=== PATIENT | female | born 1950 ===

== ENCOUNTER 2024-01-10 09:22 | Inpatient (IN) | payer MEDICARE, OTHER ==
--- NOTE | 2024-01-10 09:57 | ED ---
General Adult HPI - General Chief complaint: Shortness of Breath Stated complaint: SOB Time Seen by Provider: 01/10/24 09:30 Source: patient, RN notes reviewed, old records reviewed Mode of arrival: wheelchair Limitations: no limitations - History of Present Illness Initial comments: This is a 73-year-old female with a past medical history for COPD, rheumatoid arthritis, osteoporosis and smoking which she continues today. Patient comes in for difficulty breathing states is ongoing for 3 weeks. Patient states she also has some chest and back pain that is exacerbated by any kind of deep breathing or movement. Patient states last night she bent over and felt pain in her left side of her rib cage when she was trying to roller picker a pillow. Patient states her back pain also is increased with deep breathing or twisting. Patient denies any recent fevers or chills however she did have a cough and was given Zithromax and a decongestant and the cough improved and she no longer is coughing. Patient states she was recently switched from Z-Chase to Levaquin. Patient denies any swelling in the legs or calf tenderness. Patient [place] any abdominal pain patient has nausea vomiting diarrhea - Related Data Home Medications Medication Instructions Recorded Confirmed Albuterol Sulfate [Albuterol 1 - 2 puff PO RT-Q4H PRN 01/10/24 01/10/24 Sulfate Hfa] Benzonatate [Tessalon Perles] 100 mg PO TID PRN 01/10/24 01/10/24 Celecoxib [CeleBREX] 200 mg PO BID PRN 01/10/24 01/10/24 HYDROcodone/APAP 10-325MG [[place] 1 tab PO Q8H PRN 01/10/24 01/10/24 10-325] Levocetirizine Dihydrochloride 5 mg PO HS PRN 01/10/24 01/10/24 [Xyzal] Levofloxacin [Levaquin] 500 mg PO HS 01/10/24 01/10/24 lisinopriL [Zestril] 10 mg PO DAILY 01/10/24 01/10/24 predniSONE 10 mg PO DAILY 01/10/24 01/10/24 Allergies Allergy/AdvReac Type Severity Reaction Status Date / Time No Known Allergies Allergy Verified 01/10/24 12:33 Review of Systems ROS Statement: Those systems with pertinent positive or pertinent negative responses have been documented in the HPI. ROS Other: All systems not noted in ROS Statement are negative. Past Medical History Past Medical History: Heart Failure, COPD, Hypertension History of Any Multi-Drug Resistant Organisms: None Reported Past Surgical History: No Surgical Hx Reported Past Psychological History: No Psychological Hx Reported Smoking Status: Current every day smoker Past Alcohol Use History: None Reported Past Drug Use History: None Reported General Exam - General Exam Comments Initial Comments: GENERAL: Patient is well-developed and well-nourished. Patient is nontoxic and well- hydrated and is in mild distress. ENT: Neck is soft and supple. No significant lymphadenopathy is noted. Oropharynx is clear. Moist mucous membranes. Neck has full range of motion without eliciting any pain. EYES: The sclera were anicteric and conjunctiva were pink and moist. Extraocular movements were intact and pupils were equal round and reactive to light. Eyelids were unremarkable. PULMONARY: Unlabored respirations. Good breath sounds bilaterally. No audible rales rhonchi or wheezing was noted. CARDIOVASCULAR: Patient is tachycardic at about 120 beats a minute ABDOMEN: Soft and nontender with normal bowel sounds. SKIN: Skin is clear with no lesions or rashes and otherwise unremarkable. NEUROLOGIC: Patient is alert and oriented x3. Cranial nerves II through XII are grossly intact. Motor and sensory are also intact. Normal speech, volume and content. Symmetrical smile. MUSCULOSKELETAL: Normal extremities with adequate strength and full range of motion. LYMPHATICS: No significant lymphadenopathy is noted PSYCHIATRIC: Normal psychiatric evaluation. Limitations: no limitations Course Vital Signs 01/10/24 01/10/24 01/10/24 09:26 09:49 10:32 Temperature 98.9 F Pulse Rate 110 H 105 H Respiratory 22 16 18 Rate Blood Pressure 125/76 O2 Sat by Pulse 94 L 95 Oximetry 01/10/24 01/10/24 01/10/24 11:40 12:00 13:00 Temperature 98.3 F Pulse Rate 108 H 110 H 110 H Respiratory 18 18 19 Rate Blood Pressure 116/70 132/90 135/91 O2 Sat by Pulse 94 L 94 L Oximetry Medical Decision Making - Medical Decision Making EKG is interpreted by myself read EKG shows a sinus tachycardia at 109 bpm [place] interval is 132 QRS is 92 QT interval 325 QTc is 389. Patient's EKG shows no ST segment elevation Was pt. sent in by a medical professional or institution ([facility], [employer], urgent care, hospital, or [facility]...) When possible be specific @ -No Did you speak to anyone other than the patient for history (EMS, parent, family, police, friend...)? What history was obtained from this source @ -No Did you review nursing and triage notes (agree or disagree)? Why? @ -I reviewed and agree with nursing and triage notes Were old charts reviewed (outside hosp., previous admission, EMS record, old EKG, old radiological studies, urgent care reports/EKG's, [facility] records)? Report findings @ -I compared this x-ray with the previous x-ray showed no changes. Differential Diagnosis (chest pain, altered mental status, abdominal pain women, abdominal pain men, vaginal bleeding, weakness, fever, dyspnea, syncope, head ache, dizziness, GI bleed, back pain, seizure, CVA, palpatations, mental health, musculoskeletal)? @ -Differential Dyspnea: Coronary syndrome, arrhythmia, tamponade, asthma, COPD, pulmonary embolism, pneumonia, pneumothorax, pulmonary effusion, anaphylaxis, diabetic ketoacidosis, flailed chest, pulmonary contusion, diaphragmatic rupture, anemia, neuromuscular, this is not meant to be an all-inclusive list. EKG interpreted by me (3pts min.). @ -As above X-rays interpreted by me (1pt min.). @ -Chest x-ray showed no acute normality CT interpreted by me (1pt min.). @ -None done U/S interpreted by me (1pt. min.). @ -None done What testing was considered but not performed or refused? (CT, X-rays, U/S, labs)? Why? @ -None What meds were considered but not given or refused? Why? @ -None Did you discuss the management of the patient with other professionals (professionals i.e. [facility], [employer], lab, RT, psych nurse, social worker assistant, criminal defense lawyer, teacher, chief lending officer, manager rn case)? Give summary @ -I spoke with Dr. Shane and he agreed to admit the patient Was smoking cessation discussed for >3mins.? @ -No Was critical care preformed (if so, how long)? @ -No Were there social determinants of health that impacted care today? How? (Homelessness, low income, unemployed, alcoholism, drug addiction, transportation, low edu. Level, literacy, decrease access to med. care, group home, rehab)? @ -No Was there de-escalation of care discussed even if they declined (Discuss DNR or withdrawal of care, Hospice)? DNR status @ -No What co-morbidities impacted this encounter? (DM, HTN, Smoking, COPD, CAD, Cancer, CVA, ARF, Chemo, Hep., AIDS, mental health diagnosis, sleep apnea, morbid obesity)? @ -None Was patient admitted / discharged? Hospital course, mention meds given and route, prescriptions, significant lab abnormalities, going to OR and other pertinent info. @ -Patient received breathing treatment steroid while in the emergency department as well as Rocephin. Patient will be admitted to Dr. Shane Undiagnosed new problem with uncertain prognosis? @ -No Drug Therapy requiring intensive monitoring for toxicity (Heparin, Nitro, Insulin, Cardizem)? @ -No Were any procedures done? @ -No Diagnosis/symptom? @ -COPD exacerbation Acute, or Chronic, or Acute on Chronic? @ -Acute Uncomplicated (without systemic symptoms) or Complicated (systemic symptoms)? @ -Complicated Side effects of treatment? @ -No Exacerbation, Progression, or Severe Exacerbation? @ -No Poses a threat to life or bodily function? How? (Chest pain, [place], [place], pneumonia, PE, COPD, DKA, ARF, appy, cholecystitis, CVA, Diverticulitis, Homicidal, Suicidal, threat to staff... and all critical care pts) @ -Yes this could lead to hypoxia and endorgan dysfunction - Lab Data Result diagrams: 01/10/24 09:56 01/10/24 09:56 Lab Results 01/10/24 01/10/24 01/10/24 Range/Units 09:56 09:56 09:56 WBC 15.2 H (3.8-10.6) k/uL RBC 5.23 (3.80-5.40) m/uL Hgb 16.2 H (11.4-16.0) gm/dL Hct 50.3 H (34.0-46.0) % MCV 96.2 (80.0-100.0) fL MCH 31.0 (25.0-35.0) pg MCHC 32.2 (31.0-37.0) g/dL RDW 14.3 (11.5-15.5) % Plt Count 417 (150-450) k/uL MPV 7.3 Neutrophils % 90 % Lymphocytes % 5 % Monocytes % 4 % Eosinophils % 1 % Basophils % 0 % Neutrophils # 13.6 H (1.3-7.7) k/uL Lymphocytes # 0.7 L (1.0-4.8) k/uL Monocytes # 0.5 (0-1.0) k/uL Eosinophils # 0.2 (0-0.7) k/uL Basophils # 0.1 (0-0.2) k/uL PT 10.1 (10.0-12.5) sec INR 0.9 (<1.2) APTT 28.1 (22.0-30.0) sec D-Dimer 0.96 H (<0.60) mg/L FEU Sodium 126 L (137-145) mmol/L Potassium 4.4 (3.5-5.1) mmol/L Chloride 98 (98-107) mmol/L Carbon Dioxide 15 L (22-30) mmol/L Anion Gap 13 mmol/L BUN 16 (7-17) mg/dL Creatinine 0.54 (0.52-1.04) mg/dL Est GFR (CKD-EPI)AfAm >90 (>60 ml/min/1.73 sqM) Est GFR (CKD-EPI)NonAf >90 (>60 ml/min/1.73 sqM) Glucose 105 H (74-99) mg/dL Plasma Lactic Acid Abner (0.7-2.0) mmol/L Calcium 9.4 (8.4-10.2) mg/dL Magnesium 1.8 (1.6-2.3) mg/dL Total Bilirubin 1.1 (0.2-1.3) mg/dL AST 26 (14-36) U/L ALT 12 (4-34) U/L Alkaline Phosphatase 168 H (38-126) U/L Troponin I (0.000-0.034) ng/mL NT-Pro-B Natriuret Pep 379 pg/mL Total Protein 6.3 (6.3-8.2) g/dL Albumin 3.7 (3.5-5.0) g/dL Influenza Type A (PCR) (Not Detectd) Influenza Type B (PCR) (Not Detectd) RSV (PCR) (Not Detectd) SARS-CoV-2 (PCR) (Not Detectd) 01/10/24 01/10/24 01/10/24 Range/Units 09:56 09:56 09:56 WBC (3.8-10.6) k/uL RBC (3.80-5.40) m/uL Hgb (11.4-16.0) gm/dL Hct (34.0-46.0) % MCV (80.0-100.0) fL MCH (25.0-35.0) pg MCHC (31.0-37.0) g/dL RDW (11.5-15.5) % Plt Count (150-450) k/uL MPV Neutrophils % % Lymphocytes % % Monocytes % % Eosinophils % % Basophils % % Neutrophils # (1.3-7.7) k/uL Lymphocytes # (1.0-4.8) k/uL Monocytes # (0-1.0) k/uL Eosinophils # (0-0.7) k/uL Basophils # (0-0.2) k/uL PT (10.0-12.5) sec INR (<1.2) APTT (22.0-30.0) sec D-Dimer (<0.60) mg/L FEU Sodium (137-145) mmol/L Potassium (3.5-5.1) mmol/L Chloride (98-107) mmol/L Carbon Dioxide (22-30) mmol/L Anion Gap mmol/L BUN (7-17) mg/dL Creatinine (0.52-1.04) mg/dL Est GFR (CKD-EPI)AfAm (>60 ml/min/1.73 sqM) Est GFR (CKD-EPI)NonAf (>60 ml/min/1.73 sqM) Glucose (74-99) mg/dL Plasma Lactic Acid Abner 1.4 (0.7-2.0) mmol/L Calcium (8.4-10.2) mg/dL Magnesium (1.6-2.3) mg/dL Total Bilirubin (0.2-1.3) mg/dL AST (14-36) U/L ALT (4-34) U/L Alkaline Phosphatase (38-126) U/L Troponin I <0.012 (0.000-0.034) ng/mL NT-Pro-B Natriuret Pep pg/mL Total Protein (6.3-8.2) g/dL Albumin (3.5-5.0) g/dL Influenza Type A (PCR) Not Detected (Not Detectd) Influenza Type B (PCR) Not Detected (Not Detectd) RSV (PCR) Not Detected (Not Detectd) SARS-CoV-2 (PCR) Not Detected (Not Detectd) 01/10/24 Range/Units 11:01 WBC (3.8-10.6) k/uL RBC (3.80-5.40) m/uL Hgb (11.4-16.0) gm/dL Hct (34.0-46.0) % MCV (80.0-100.0) fL MCH (25.0-35.0) pg MCHC (31.0-37.0) g/dL RDW (11.5-15.5) % Plt Count (150-450) k/uL MPV Neutrophils % % Lymphocytes % % Monocytes % % Eosinophils % % Basophils % % Neutrophils # (1.3-7.7) k/uL Lymphocytes # (1.0-4.8) k/uL Monocytes # (0-1.0) k/uL Eosinophils # (0-0.7) k/uL Basophils # (0-0.2) k/uL PT (10.0-12.5) sec INR (<1.2) APTT (22.0-30.0) sec D-Dimer (<0.60) mg/L FEU Sodium (137-145) mmol/L Potassium (3.5-5.1) mmol/L Chloride (98-107) mmol/L Carbon Dioxide (22-30) mmol/L Anion Gap mmol/L BUN (7-17) mg/dL Creatinine (0.52-1.04) mg/dL Est GFR (CKD-EPI)AfAm (>60 ml/min/1.73 sqM) Est GFR (CKD-EPI)NonAf (>60 ml/min/1.73 sqM) Glucose (74-99) mg/dL Plasma Lactic Acid Abner 1.4 (0.7-2.0) mmol/L Calcium (8.4-10.2) mg/dL Magnesium (1.6-2.3) mg/dL Total Bilirubin (0.2-1.3) mg/dL AST (14-36) U/L ALT (4-34) U/L Alkaline Phosphatase (38-126) U/L Troponin I (0.000-0.034) ng/mL NT-Pro-B Natriuret Pep pg/mL Total Protein (6.3-8.2) g/dL Albumin (3.5-5.0) g/dL Influenza Type A (PCR) (Not Detectd) Influenza Type B (PCR) (Not Detectd) RSV (PCR) (Not Detectd) SARS-CoV-2 (PCR) (Not Detectd) Disposition Clinical Impression: Acute exacerbation of chronic obstructive pulmonary disease Disposition: ADMITTED IP TO THIS HOSP Referrals: Popeye Dupont MD [Primary Care Provider] - 1-2 days Time of Disposition: 14:08
[2024-01-10 10:26] LABS: Basophils # (A) 0.1 k/uL (0-0.2); Basophils % (A) 0 %; Eosinophils # (A) 0.2 k/uL (0-0.7); Eosinophils % (A) 1 %; HCT 50.3 % (34.0-46.0); HGB 16.2 gm/dL (11.4-16.0); Lymphocytes # (A) 0.7 k/uL (1.0-4.8); Lymphocytes % (A) 5 %; MCHC 32.2 g/dL (31.0-37.0); MCV 96.2 fL (80.0-100.0); Mean Platelet Volume 7.3; Monocytes # (A) 0.5 k/uL (0-1.0); Monocytes % (A) 4 %; Neutrophils # (A) 13.6 k/uL (1.3-7.7); Neutrophils % (A) 90 %; Platelet Count 417 k/uL (150-450); RBC 5.23 m/uL (3.80-5.40); RDW 14.3 % (11.5-15.5); WBC 15.2 k/uL (3.8-10.6)
[2024-01-10 10:40] LABS: ALT 12 U/L (4-34); AST 26 U/L (14-36); African American GFR (CKD) >90 (>60 ml/min/1.73 sqM); Albumin 3.7 g/dL (3.5-5.0); Alkaline Phosphatase 168 U/L (38-126); Anion Gap 13 mmol/L; Blood Urea Nitrogen 16 mg/dL (7-17); Calcium 9.4 mg/dL (8.4-10.2); Carbon Dioxide 15 mmol/L (22-30); Chloride 98 mmol/L (98-107); Glucose 105 mg/dL (74-99); Magnesium 1.8 mg/dL (1.6-2.3); Non-African American GFR(CKD) >90 (>60 ml/min/1.73 sqM); Potassium 4.4 mmol/L (3.5-5.1); Sodium 126 mmol/L (137-145); Total Bilirubin 1.1 mg/dL (0.2-1.3); Total Protein 6.3 g/dL (6.3-8.2)
[2024-01-10 10:42] LABS: INR 0.9 (<1.2); Partial Thromboplastin Time 28.1 sec (22.0-30.0); Prothrombin Time 10.1 sec (10.0-12.5)
[2024-01-10 10:47] LABS: NT-Pro-B-Type Natriuretic Pept 379 pg/mL
--- NOTE | 2024-01-10 11:01 | XR ---
EXAMINATION TYPE: XR chest 2V DATE OF EXAM: 01/10/2024 COMPARISON: None INDICATION: Difficulty breathing TECHNIQUE: Frontal and lateral views of the chest are obtained. FINDINGS: The heart size is normal. The pulmonary vasculature is normal. There may be some fullness of the right hilar region. Pulmonary hypertension or underlying mass should be considered. Consider follow-up CT. No suspicious focal infiltrate. There is hyperinflation and flattening of diaphragms compatible with COPD. IMPRESSION: 1. No acute pulmonary process. 2. Possible fullness of the right hilum. Consider follow-up CT chest to evaluate for pulmonary hypert ension or underlying mass.
[2024-01-10] MEDS: cefTRIAXone IN SWFI 1,000 MG/10 ML SYRINGE IVP STA (11:37)
--- NOTE | 2024-01-10 12:16 | CT ---
CTA CHEST EXAMINATION TYPE: CT chest angio for PE DATE OF EXAM: 01/10/2024 INDICATION: elevated-dimer CT DLP: 159.5 mGycm, Automated exposure control for dose reduction was used. CONTRAST: Patient injected with 69 mL of Isovue 370. COMPARISON: None TECHNIQUE: CT of the chest is performed on a spiral scan at 2 mm thick sections. Study is performed with intravenous contrast timed for evaluation for pulmonary embolism. This will limit additional po rtions of the evaluation. 3-D MIP images reconstructed by the technologist are reviewed on the compu ter in the coronal and sagittal planes. FINDINGS: No persistent filling defects are evident to suggest an acute pulmonary embolism. No mediastinal or hilar adenopathy enlarged by CT criteria is evident. The ascending aorta diameter at the level of the main pulmonary artery is 3.5 cm. The main pulmonary artery diameter at the bifurcation is 3.1 cm. There may be a 1 cm density within the lingula. This could be related to atelectasis or scarring. Mas s is not excluded. Lung windows series 401 image 57. Moderate emphysematous changes are present bilat erally. Limited CT sections were through the upper abdomen. Upper abdomen appears unremarkable. IMPRESSION: 1. There may be a 1 cm density versus scarring or atelectasis in the left anterior midlung. Follow-up PET/CT can be performed. 2. Moderate emphysematous changes. 3. No acute pulmonary embolism
[2024-01-10] MEDS ORDERED: BENZONATATE 100 MG CAP PO PRN (13:48)
[2024-01-10] MEDS ORDERED: NALOXONE 0.4 MG/ML 1 ML VIAL IVP PRN (14:10)
[2024-01-10] MEDS ORDERED: IPRATROPIUM-ALBUTEROL 3 ML NEB INHALATION PRN (14:10)
[2024-01-10] MEDS: IPRATROPIUM-ALBUTEROL 3 ML NEB INHALATION SCH (15:36)
[2024-01-10] MEDS: IPRATROPIUM-ALBUTEROL 3 ML NEB INHALATION STA (15:43)
[2024-01-10] MEDS: SODIUM CHLORIDE 0.9% 1,000 ML IV STA (15:49)
[2024-01-10] MEDS: KETOROLAC 15 MG/ML 1 ML VIAL IVP STA (15:50)
[2024-01-10] MEDS: MAGNESIUM SULFATE-D5W PMX 1 GM in DEXTROSE/WATER 1 100ML.BAG IVPB ONE (15:50)
[2024-01-10] MEDS: PANTOPRAZOLE 40 MG TABLET PO SCH (15:51)
[2024-01-10] MEDS: methylPREDNISolone SOD SUCCI 125 MG/2 ML VIAL IV SCH (17:00)
[2024-01-10] MEDS ORDERED: ALBUTEROL NEBULIZED 2.5 MG/3 ML INHALATION PRN (17:46)
[2024-01-10] MEDS ORDERED: MELOXICAM 7.5 MG TAB PO PRN (17:47)
[2024-01-10] MEDS: AMOXIC-POT CLAV 875-125MG 1 EACH TAB PO SCH (20:58)
[2024-01-10] MEDS: HYDROcodone/APAP 10-325MG 1 EACH TAB PO PRN (20:58)
[2024-01-10] MEDS: HEPARIN SODIUM,PORCINE 5,000 UNIT/ML 1 ML VIAL SQ SCH (20:58)
--- NOTE | 2024-01-10 23:00 | P.HPIM ---
History of Present Illness H&P Date: 01/10/24 Chief Complaint: Shortness of breath Patient is a 73-year-old female with known history of COPD, hypertension rheumatoid arthritis with arthritic changes and CHF EF not known and prior history of thoracentesis and currently everyday smoker presents to ER with complaints of shortness of breath not improving for the past 3 weeks. Patient was on 2 courses of oral antibiotics as an outpatient. Patient is also complaining of left upper quadrant pain since last night when she sat on the side of the bed and was trying to flower buncher or picker a pillow. Denies any fall otherwise. Patient is also complaining of back pain. Denies any fevers or chills. Patient did complete antibiotics with azithromycin and also levofloxacin. Patient is on prednisone 10 mg daily at home. Currently denies any cough or sputum production. No leg swelling. Denies any weight gain. No nausea vomiting abdominal pain or diarrhea. Chest x-ray showed no acute pulmonary process. Possible fullness of the right hilum. Consider follow-up CT chest to evaluate for pulmonary hypertension or underlying mass. EKG showed sinus tachycardia with heart rate 119 CTA chest was done due to elevated D-dimer level. Showed there may be 1 cm density versus scarring or atelectasis in the left anterior midlung follow-up PET CT can be performed. Moderate emphysematous changes. No acute pulmonary embolism. Laboratory data showed WBC 15.2 hemoglobin 16.2 platelets 417 D-dimer 0.96, sodium 126 potassium 4.4 chloride 98 bicarb is 15 BUN 16 and creatinine 0.54 and blood sugar 105 lactic acid 1.4 magnesium 1.8 AST 26 ALT 12 alk phos 168 and troponin 0.012 and proBNP 379 and albumin 3.7 Influenza AB RSV and COVID-19 PCR not detected. Review of Systems Constitutional: Patient denies any fever or chills . Patient does have generalized weakness. No recent weight loss. Abdomen: Patient denied nausea vomiting and diarrhea and abdominal pain. Cardiovascular: Patient denies any chest pain. Patient does have short of breath no palpitations. No leg swelling Respiratory: patient denied any cough is from production. Positive for shortness of breath Neurologic: Patient denied any numbness or tingling headache. Musculoskeletal: Patient denies any complaints of joint swelling or deformity. Skin: Negative Psychiatric: Negative Endocrine: No heat or cold intolerance. No recent weight gain. Genitourinary: No dysuria or hematuria. All other 14 point ROS negative except the above Past Medical History Past Medical History: Heart Failure, COPD, Hypertension History of Any Multi-Drug Resistant Organisms: None Reported Past Surgical History: No Surgical Hx Reported Past Psychological History: No Psychological Hx Reported Smoking Status: Current every day smoker Past Alcohol Use History: None Reported Past Drug Use History: None Reported Medications and Allergies Home Medications Medication Instructions Recorded Confirmed Type Albuterol Sulfate [Albuterol 1 - 2 puff PO RT-Q4H PRN 01/10/24 01/10/24 History Sulfate Hfa] Benzonatate [Tessalon Perles] 100 mg PO TID PRN 01/10/24 01/10/24 History Celecoxib [CeleBREX] 200 mg PO BID PRN 01/10/24 01/10/24 History HYDROcodone/APAP 10-325MG [[place] 1 tab PO Q8H PRN 01/10/24 01/10/24 History 10-325] Levocetirizine Dihydrochloride 5 mg PO HS PRN 01/10/24 01/10/24 History [Xyzal] Levofloxacin [Levaquin] 500 mg PO HS 01/10/24 01/10/24 History lisinopriL [Zestril] 10 mg PO DAILY 01/10/24 01/10/24 History predniSONE 10 mg PO DAILY 01/10/24 01/10/24 History Allergies Allergy/AdvReac Type Severity Reaction Status Date / Time No Known Allergies Allergy Verified 01/10/24 12:33 Physical Exam Vitals: Vital Signs Temp Pulse Resp BP Pulse Ox 01/10/24 13:00 110 H 19 135/91 94 L 01/10/24 12:00 110 H 18 132/90 94 L 01/10/24 11:40 98.3 F 108 H 18 116/70 01/10/24 10:32 105 H 18 95 01/10/24 09:49 16 01/10/24 09:26 98.9 F 110 H 22 125/76 94 L Intake and Output 01/09/24 01/10/24 01/10/24 22:59 06:59 14:59 Other: Weight 43.545 kg PHYSICAL EXAMINATION: Patient is lying in the bed , no acute distress, awake alert and oriented. Patient is cachectic and malnourished. HEENT: Normocephalic. Neck is supple. Pupils reactive. Nostrils clear. Oral cavity is moist. Neck reveals no JVD, carotid bruits, or thyromegaly. CHEST EXAMINATION: Trachea is central. Symmetrical expansion. Bilateral diminished sounds. Mild expiratory wheezing. Nonlabored breathing.. CARDIAC: Normal S1, S2 with no gallops. No murmurs ABDOMEN: Soft. Bowel sounds normal. No organomegaly. No abdominal bruits. Extremities: reveal no edema. No clubbing or cyanosis. Patient does have Neurologically awake, alert, oriented x 2-3 able to move all extremities. No gross focal deficits noted Skin: No rash or skin lesions. Psychiatric: Coperative. Nonsuicidal Musculoskeletal: No joint swelling or deformity. Rheumatoid arthritis changes Results CBC & Chem 7: 01/10/24 09:56 01/10/24 09:56 Labs: Abnormal Lab Results - Last 24 Hours (Table) 01/10/24 01/10/24 01/10/24 Range/Units 09:56 09:56 09:56 WBC 15.2 H (3.8-10.6) k/uL Hgb 16.2 H (11.4-16.0) gm/dL Hct 50.3 H (34.0-46.0) % Neutrophils # 13.6 H (1.3-7.7) k/uL Lymphocytes # 0.7 L (1.0-4.8) k/uL D-Dimer 0.96 H (<0.60) mg/L FEU Sodium 126 L (137-145) mmol/L Carbon Dioxide 15 L (22-30) mmol/L Glucose 105 H (74-99) mg/dL Alkaline Phosphatase 168 H (38-126) U/L Thrombosis Risk Factor Assmnt - DVT/VTE Prophylaxis DVT/VTE Prophylaxis: Pharmacologic Prophylaxis ordered Assessment and Plan Assessment: Shortness of breath secondary to COPD exacerbation failed outpatient treatment Left anterior midlung 1 cm density scarring or atelectasis Prior history of left sided thoracentesis Hypovolemic hyponatremia with sodium 126 on admission Leukocytosis Hypertension Current everyday smoker Severe protein calorie malnutrition Chronic back pain and Rheumatoid arthritis with severe arthritic changes GI and DVT prophylaxis with PPI and heparin subcu Plan: Patient will be continued on IV hydration with normal saline. Current with IV Solu-Medrol, DuoNebs and was given a dose of ceftriaxone in the ER. UA was ordered Continue with home medications, blood pressure medication on hold due to low blood pressure. Chronic pain managed with [place] 10 as per home regimen. Pulmonary consult for evaluation. Patient was seen by Dr. Donohue previously PT OT consult Continue to follow closely. Prognosis is guarded. Time with Patient: Greater than 30
[2024-01-11 00:16] LABS: Appearance,Urine Clear (Clear); Bilirubin,Urine Negative (Negative); Blood,Urine Negative (Negative); Color,Urine Colorless; Glucose,Urine (UA) Negative (Negative); Ketones,Urine 1+ (Negative); Leukocyte Esterase,Urine Negative (Negative); Nitrite,Urine Negative (Negative); PH, Urine 6.5 (5.0-8.0); Protein,Urine Negative (Negative); Specific Gravity,Urine 1.008 (1.001-1.035); Urobilinogen,Urine <2.0 mg/dL (<2.0)
[2024-01-11] MEDS ORDERED: lisinopriL 10 MG TAB PO SCH (09:00)
[2024-01-11 09:28] LABS: Basophils # (A) 0.01 X 10*3/uL (0.00-0.10); Basophils % (A) 0.1 %; Eosinophils # (A) 0.03 X 10*3/uL (0.04-0.35); Eosinophils % (A) 0.2 %; HCT 42.6 % (37.2-46.3); HGB 14.2 g/dL (12.0-15.0); Lymphocytes # (A) 0.22 X 10*3/uL (0.90-5.00); Lymphocytes % (A) 1.5 %; MCH 30.6 pg (27.0-32.0); MCHC 33.3 g/dL (32.0-37.0); MCV 91.8 FL (80.0-97.0); Mean Platelet Volume 9.8 FL (9.5-12.2); Monocytes # (A) 0.15 X 10*3/uL (0.20-1.00); NRBC Per 100 WBC 0 X 10*3/uL (0.00-0.01); Neutrophils # (A) 14.45 X 10*3/uL (1.80-7.70); Neutrophils % (A) 96.8 %; Platelet Count 391 X 10*3/uL (140-440); RBC 4.64 X 10*6/uL (4.10-5.20); RDW 15.4 % (11.5-14.5); WBC 14.92 X 10*3/uL (4.50-10.00)
[2024-01-11 09:50] LABS: BUN/Creat Ratio 26.25 Ratio (12.00-20.00); Blood Urea Nitrogen 10.5 mg/dL (9.0-27.0); Calcium 9.1 mg/dL (8.7-10.3); Carbon Dioxide 17.8 mmol/L (21.6-31.8); Chloride 100 mmol/L (96-109); Glucose 213 mg/dL (70-110); Potassium 4.5 mmol/L (3.5-5.5); Sodium 132 mmol/L (135-145)
--- NOTE | 2024-01-11 14:01 | CA ---
Transthoracic Echo Report Name: Susana Chen Age: 73 Gender: F : 1950 Exam Date: 01/11/2024 12:42 Exam Location: [facility] Ht (in): 60 Wt (lb): 96 Ordering Physician: Leonidas Laureano MD Attending/Referring Phys: [employer] General Supervisor Any Awan RDCS Procedure CPT: Indications: Chest Pain Cardiac Hx: Technical Quality: Fair Contrast 1: Total Dose (mL): Contrast 2: Total Dose (mL): MEASUREMENTS (Male / Female) Normal Values 2D ECHO LV Diastolic Diameter PLAX 4.8 cm 4.2 - 5.9 / 3.9 - 5.3 cm LV Systolic Diameter PLAX 3.5 cm IVS Diastolic Thickness 1.2 cm 0.6 - 1.0 / 0.6 - 0.9 cm LVPW Diastolic Thickness 1.3 cm 0.6 - 1.0 / 0.6 - 0.9 cm LV Relative Wall Thickness 0.5 RV Internal Dim ED PLAX 3.4 cm LVOT Diameter 1.7 cm LA Volume 39.2 cm??? 18 - 58 / 22 - 52 cm??? LA Volume Index 28.9 cm???/m??? 16 - 28 cm???/m??? M-MODE Aortic Root Diameter MM 3.7 cm LA Systolic Diameter MM 4.6 cm LA Ao Ratio MM 1.3 AV Cusp Separation MM 1.4 cm DOPPLER AV Peak Velocity 273.2 cm/s AV Peak Gradient 29.9 mmHg AV Mean Velocity 209.0 cm/s AV Mean Gradient 18.7 mmHg AV Velocity Time Integral 45.3 cm LVOT Peak Velocity 111.5 cm/s LVOT Peak Gradient 5.0 mmHg LVOT Velocity Time Integral 17.5 cm LVOT Stroke Volume 41.2 cm??? LVOT Stroke Volume Index 30.1 ml/m??? LVOT Cardiac Index 3588.6 cm???/min???m??? AV Area Cont Eq vti 0.9 cm??? AV Area Cont Eq pk 1.0 cm??? MV Area PHT 5.3 cm??? Mitral E Point Velocity 76.6 cm/s Mitral A Point Velocity 49.8 cm/s Mitral E to A Ratio 1.5 MV Deceleration Time 144.1 ms MV E' Velocity 7.4 cm/s Mitral E to MV E' Ratio 10.4 FINDINGS Left Ventricle Mildly increased left ventricular wall thickness. Left ventricular cavity size normal. Normal left ventricular systolic function with no obvious regional wall motion abnormalities. Left ventricular ejection fraction is estimated at 55 %. Right Ventricle Normal right ventricular size and function. Right Atrium Normal right atrial size. Normal right atrial size. Left Atrium Normal left atrial size. Mitral Valve Structurally normal mitral valve. Mild mitral annular calcification. Mild mitral regurgitation. Aortic Valve Mild aortic stenosis with a peak gradient of 30 mmHg and a mean gradient of 19 mmHg. No aortic regurgitation. Tricuspid Valve Structurally normal tricuspid valve. Mild tricuspid regurgitation. Pulmonic Valve Structurally normal pulmonic valve. Pericardium No pericardial effusion. Aorta Normal size aortic root and proximal ascending aorta. CONCLUSIONS Preserved LV systolic function Asymmetric septal hypertrophy Mild aortic stenosis Previewed by: Dr. Mike Donnelly MD (Electronically Signed) Final Date: 11 January 2024 14:00
[2024-01-11] MEDS ORDERED: DEXTROSE 50% SYRINGE 50 ML IVP PRN ×2 (14:37)
[2024-01-11 16:22] LABS: Glucose,Whole Blood 253 mg/dL (70-110)
--- NOTE | 2024-01-11 16:22 | P.CNPUL ---
History of Present Illness Consult date: 01/11/24 Reason for consult: dyspnea, COPD History of present illness: On 01/11/2024, the patient is being seen for cardiac consultation as the patient came into the hospital yesterday because of worsening shortness of breath. The patient is known to have COPD and the patient smokes around half pack of cigarettes a day. The patient is having increased dyspnea cough chest congestion chest tightness and wheeze along with some nonspecific chest pain not related to exertion without any radiation. No fever or chills. The viral screen has been negative including COVID-19 influenza and flu. Chest x-ray was showing COPD and a CAT scan of the chest was also done and showed no evidence of any pulmonary embolism that was consistent with COPD and presence of centrilobular emphysema moderate disease. A density is also seen in the left anterior midlung area which is probably an area of scar/atelectasis. The patient's white cell count was at 15.2 with a hemoglobin of 16.2 and a platelet count of 417. Sodium levels at 132 up from 126 at time of admission and the patient has a serum bicarb of 17 with a BUN of 10 and a creatinine of 0.4. Troponins were negative. proBNP level is nonelevated. UA has been also negative. She is on [facility]. Does not utilize any form of maintenance respiratory medication outpatient basis. She is currently on 2 L of oxygen by nasal cannula. She is on IV Solu-Medrol. She also has rheumatoid arthritis and several years back she had developed a left-sided pleural effusion which was attributed to rheumatoid arthritis. No recurrence since. She is maintained on 10 mg of prednisone on outpatient basis. Echocardiogram was also obtained today and the patient was found to have a normal left ventricular ejection fraction, asymmetric septal hypertrophy with mild aortic stenosis. Review of Systems Constitutional: Reports fatigue, Reports weakness, Reports weight loss Eyes: denies as per HPI, denies blurred vision, denies bulging eye, denies decreased vision, denies diplopia, denies discharge, denies dry eye, denies irritation, denies itching, denies pain, denies photophobia, denies loss of peripheral vision, denies loss of vision, denies tunnel vision/blind spots Ears: deny: decreased hearing, ear discharge, earache, tinnitus Ears, nose, mouth and throat: Reports as per HPI Breasts: absent: as per HPI, change in shape, gynecomastia, masses, nipple di scharge, pain, skin changes, swelling Cardiovascular: Reports decreased exercise tolerance, Reports dyspnea on exertion Respiratory: Reports cough, Reports dyspnea Genitourinary: Reports as per HPI Menstruation: Reports as per HPI Musculoskeletal: Reports as per HPI, Reports hot joints, Reports limitation of motion Musculoskeletal: absent: ankle pain, ankle stiffness, ankle swelling Integumentary: Reports as per HPI Neurological: Reports as per HPI Hematologic/Lymphatic: Reports as per HPI Allergic/Immunologic: Reports as per HPI Past Medical History Past Medical History: Heart Failure, COPD, Hypertension, Rheumatoid Arthritis (RA) History of Any Multi-Drug Resistant Organisms: None Reported Past Surgical History: No Surgical Hx Reported Past Psychological History: No Psychological Hx Reported Smoking Status: Current every day smoker Past Alcohol Use History: None Reported Past Drug Use History: None Reported Medications and Allergies Home Medications Medication Instructions Recorded Confirmed Type Albuterol Sulfate [Albuterol 1 - 2 puff PO RT-Q4H PRN 01/10/24 01/10/24 History Sulfate Hfa] Benzonatate [Tessalon Perles] 100 mg PO TID PRN 01/10/24 01/10/24 History Celecoxib [CeleBREX] 200 mg PO BID PRN 01/10/24 01/10/24 History HYDROcodone/APAP 10-325MG [[place] 1 tab PO Q8H PRN 01/10/24 01/10/24 History 10-325] Levocetirizine Dihydrochloride 5 mg PO HS PRN 01/10/24 01/10/24 History [Xyzal] Levofloxacin [Levaquin] 500 mg PO HS 01/10/24 01/10/24 History lisinopriL [Zestril] 10 mg PO DAILY 01/10/24 01/10/24 History predniSONE 10 mg PO DAILY 01/10/24 01/10/24 History Allergies Allergy/AdvReac Type Severity Reaction Status Date / Time No Known Allergies Allergy Verified 01/10/24 12:33 Physical Exam Vitals: Vital Signs Temp Pulse Pulse Resp BP BP BP 01/11/24 11:03 107 H 16 01/11/24 09:35 100 01/11/24 09:24 104 H 01/11/24 08:00 107 H 16 01/11/24 07:25 98.4 F 107 H 16 135/75 01/11/24 01:04 98.3 F 93 18 105/65 01/10/24 22:06 90 01/10/24 21:56 92 01/10/24 19:30 98.8 F 99 19 94/57 01/10/24 16:00 105 H 18 104/81 01/10/24 15:50 78 18 01/10/24 15:43 77 18 01/10/24 14:00 106 H 18 109/66 01/10/24 13:00 110 H 19 135/91 01/10/24 12:00 110 H 18 132/90 01/10/24 11:40 98.3 F 108 H 18 116/70 Pulse Ox 01/11/24 11:03 01/11/24 09:35 01/11/24 09:24 01/11/24 08:00 01/11/24 07:25 92 L 01/11/24 01:04 92 L 01/10/24 22:06 01/10/24 21:56 01/10/24 19:30 92 L 01/10/24 16:00 95 01/10/24 15:50 01/10/24 15:43 01/10/24 14:00 94 L 01/10/24 13:00 94 L 01/10/24 12:00 94 L 01/10/24 11:40 Intake and Output 01/10/24 01/11/24 01/11/24 22:59 06:59 14:59 Other: Voiding Method Toilet Toilet # Voids 2 General appearance the patient is not having any respite distress at rest and the patient is currently on 2 L of oxygen by nasal cannula. Head exam was generally normal. There was no scleral icterus or corneal arcus. Mucous membranes were moist. Neck was supple and without jugular venous distension, thyromegaly, or carotid bruits. Carotids were easily palpable bilaterally. There was no adenopathy. Lung sounds are diminished bilaterally and the patient is having scattered expiratory wheezes throughout the lung wagner. Cardiac exam revealed the PMI to be normally situated and sized. The rhythm was regular and no extrasystoles were noted during several minutes of auscultation. The first and second heart sounds were normal and physiologic splitting of the second heart sound was noted. There were no murmurs, rubs, clicks, or gallops. Abdominal exam revealed normal bowel sounds. The abdomen was soft, non-tender, and without masses, organomegaly, or appreciable enlargement of the abdominal aorta. Extremities reveal deformities related to rheumatoid arthritis with ulnar deviation. No cyanosis or clubbing. No edema. Examination of the skin revealed no evidence of significant rashes, suspicious appearing nevi or other concerning lesions. Neurologically, the patient is awake and alert and the patient does not have any focal neurological deficit. Cranial nerves are essentially intact. Results - Laboratory Findings CBC and BMP: 01/11/24 06:46 01/11/24 06:46 PT/INR, D-dimer PT 10.1 sec (10.0-12.5) 01/10/24 09:56 INR 0.9 (<1.2) 01/10/24 09:56 D-Dimer 0.96 mg/L FEU (<0.60) H 01/10/24 09:56 Abnormal lab findings: Abnormal Labs 01/10/24 01/10/24 01/10/24 09:56 09:56 09:56 WBC 15.2 H Hgb 16.2 H Hct 50.3 H RDW Immature Gran # Neutrophils # 13.6 H Lymphocytes # 0.7 L Monocytes # Eosinophils # D-Dimer 0.96 H Sodium 126 L Carbon Dioxide 15 L Anion Gap Creatinine BUN/Creatinine Ratio Glucose 105 H Alkaline Phosphatase 168 H Urine Ketones 01/10/24 01/11/24 01/11/24 23:19 06:46 06:46 WBC 14.92 H Hgb Hct RDW 15.4 H Immature Gran # 0.06 H Neutrophils # 14.45 H Lymphocytes # 0.22 L Monocytes # 0.15 L Eosinophils # 0.03 L D-Dimer Sodium 132 L Carbon Dioxide 17.8 L Anion Gap 14.20 H Creatinine 0.4 L BUN/Creatinine Ratio 26.25 H Glucose 213 H Alkaline Phosphatase Urine Ketones 1+ H - Diagnostic Findings Chest x-ray: image reviewed CT scan - chest: image reviewed Assessment and Plan Plan: Acute exacerbation of COPD with secondary shortness of breath Chest pain, atypical, likely related to COPD exacerbation. Cardiac enzymes are negative. EKG is showing old Q waves over the anteroseptal leads. Echocardiogram is showing present of the function with asymmetric septal hypertrophy. Mild leukocytosis Hyponatremia, recovered with fluids History of rheumatoid arthritis History of pleural effusion attributed to RA, drained Chronic smoker Hypertension Plan [facility] Continue IV Solu-Medrol Oxygen titration to maintain saturation above 90% Will continue to follow. Smoking cessation counseling Empiric antibiotic coverage with Augmentin.
[2024-01-11] MEDS: INSULIN ASPART (NovoLOG) 100 UNIT/ML VIAL SQ SCH (17:03)
[2024-01-11 20:40] LABS: Glucose,Whole Blood 214 mg/dL (70-110)
[2024-01-12 05:39] LABS: Glucose,Whole Blood 151 mg/dL (70-110)
[2024-01-12 07:49] LABS: Basophils % (A) 0 %; Eosinophils # (A) 0.1 k/uL (0-0.7); Eosinophils % (A) 0 %; HCT 43.4 % (34.0-46.0); HGB 13.8 gm/dL (11.4-16.0); Lymphocytes # (A) 0.5 k/uL (1.0-4.8); Lymphocytes % (A) 2 %; MCHC 31.8 g/dL (31.0-37.0); MCV 97.7 fL (80.0-100.0); Mean Platelet Volume 8.1; Monocytes # (A) 0.5 k/uL (0-1.0); Monocytes % (A) 2 %; Neutrophils # (A) 21.3 k/uL (1.3-7.7); Neutrophils % (A) 95 %; Platelet Count 402 k/uL (150-450); RBC 4.44 m/uL (3.80-5.40); RDW 14.6 % (11.5-15.5); WBC 22.5 k/uL (3.8-10.6)
[2024-01-12 08:20] LABS: African American GFR (CKD) >90 (>60 ml/min/1.73 sqM); Anion Gap 7 mmol/L; Blood Urea Nitrogen 17 mg/dL (7-17); Calcium 9.4 mg/dL (8.4-10.2); Carbon Dioxide 18 mmol/L (22-30); Chloride 105 mmol/L (98-107); Glucose 150 mg/dL (74-99); Non-African American GFR(CKD) >90 (>60 ml/min/1.73 sqM); Potassium 4.6 mmol/L (3.5-5.1); Sodium 130 mmol/L (137-145)
[2024-01-12 11:58] LABS: Glucose,Whole Blood 178 mg/dL (70-110)
--- NOTE | 2024-01-12 15:33 | P.PN ---
Subjective Progress Note Date: 01/12/24 On 01/11/2024, the patient is being seen for cardiac consultation as the patient came into the hospital yesterday because of worsening shortness of breath. The patient is known to have COPD and the patient smokes around half pack of cigarettes a day. The patient is having increased dyspnea cough chest congestion chest tightness and wheeze along with some nonspecific chest pain not related to exertion without any radiation. No fever or chills. The viral screen has been negative including COVID-19 influenza and flu. Chest x-ray was showing COPD and a CAT scan of the chest was also done and showed no evidence of any pulmonary embolism that was consistent with COPD and presence of centrilobular emphysema moderate disease. A density is also seen in the left anterior midlung area which is probably an area of scar/atelectasis. The patient's white cell count was at 15.2 with a hemoglobin of 16.2 and a platelet count of 417. Sodium levels at 132 up from 126 at time of admission and the patient has a serum bicarb of 17 with a BUN of 10 and a creatinine of 0.4. Trop onins were negative. proBNP level is nonelevated. UA has been also negative. She is on [facility]. Does not utilize any form of maintenance respiratory medication outpatient basis. She is currently on 2 L of oxygen by nasal cannula. She is on IV Solu-Medrol. She also has rheumatoid arthritis and several years back she had developed a left-sided pleural effusion which was attributed to rheumatoid arthritis. No recurrence since. She is maintained on 10 mg of prednisone on outpatient basis. Echocardiogram was also obtained today and the patient was found to have a normal left ventricular ejection fraction, asymmetric septal hypertrophy with mild aortic stenosis. On today's evaluation of 01/12/2024. The patient continues to be short of breath. She remains on bronchodilators and steroids. Limited improvement since yesterday. On examination, she has improved air entry. She is on empiric antibiotic coverage with Augmentin. Labs from today shows a WBC count of 22 with a hemoglobin 13.8 and a platelet count of 402. BUN is at 17 with a creatinine of 0.44 and serum bicarb is up to 18 with a sodium level of 130. Echocardiogram was completed and the patient has a preserved LV function. No significant LV dysfunction. No significant valvular abnormalities. No evidence of any pericardial effusion. Mild aortic stenosis. Objective - Vital Signs Vital signs: Vital Signs Temp 98.7 F 01/12/24 07:49 Pulse 100 01/12/24 09:37 Resp 17 01/12/24 07:49 BP 139/82 01/12/24 07:49 Pulse Ox 94 L 01/12/24 09:29 FiO2 21 01/12/24 09:29 Intake & Output 01/11/24 01/12/24 01/12/24 18:59 06:59 18:59 Other: Voiding Method Toilet Toilet Toilet # Voids 2 2 - Exam General appearance the patient is not having any respite distress at rest and the patient is currently on 2 L of oxygen by nasal cannula. Head exam was generally normal. There was no scleral icterus or corneal arcus. Mucous membranes were moist. Neck was supple and without jugular venous distension, thyromegaly, or carotid bruits. Carotids were easily palpable bilaterally. There was no adenopathy. Lung sounds are diminished bilaterally and the patient is having scattered expiratory wheezes throughout the lung wagner. Cardiac exam revealed the PMI to be normally situated and sized. The rhythm was regular and no extrasystoles were noted during several minutes of auscultation. The first and second heart sounds were normal and physiologic splitting of the second heart sound was noted. There were no murmurs, rubs, clicks, or gallops. Abdominal exam revealed normal bowel sounds. The abdomen was soft, non-tender, and without masses, organomegaly, or appreciable enlargement of the abdominal aorta. Extremities reveal deformities related to rheumatoid arthritis with ulnar deviation. No cyanosis or clubbing. No edema. Examination of the skin revealed no evidence of significant rashes, suspicious appearing nevi or other concerning lesions. Neurologically, the patient is awake and alert and the patient does not have any focal neurological deficit. Cranial nerves are essentially intact. - Labs CBC & Chem 7: 01/12/24 07:17 01/12/24 07:17 Labs: Abnormal Lab Results - Last 24 Hours (Table) 01/11/24 01/11/24 01/12/24 Range/Units 16:20 20:38 05:36 WBC (3.8-10.6) k/uL Neutrophils # (1.3-7.7) k/uL Lymphocytes # (1.0-4.8) k/uL Sodium (137-145) mmol/L Carbon Dioxide (22-30) mmol/L Creatinine (0.52-1.04) mg/dL Glucose (74-99) mg/dL POC Glucose (mg/dL) 253 H 214 H 151 H (70-110) mg/dL 01/12/24 01/12/24 Range/Units 07:17 07:17 WBC 22.5 H (3.8-10.6) k/uL Neutrophils # 21.3 H (1.3-7.7) k/uL Lymphocytes # 0.5 L (1.0-4.8) k/uL Sodium 130 L (137-145) mmol/L Carbon Dioxide 18 L (22-30) mmol/L Creatinine 0.44 L (0.52-1.04) mg/dL Glucose 150 H (74-99) mg/dL POC Glucose (mg/dL) (70-110) mg/dL Microbiology - Last 24 Hours (Table) 01/10/24 11:03 Blood Culture - Preliminary Blood 01/10/24 10:53 Blood Culture - Preliminary Blood Assessment and Plan Plan: Acute exacerbation of COPD with secondary shortness of breath Chest pain, atypical, likely related to COPD exacerbation. Cardiac enzymes are negative. EKG is showing old Q waves over the anteroseptal leads. Echocardiogram is showing present of the function with asymmetric septal hypertrophy. Mild leukocytosis Hyponatremia, recovered with fluids History of rheumatoid arthritis History of pleural effusion attributed to RA, drained Chronic smoker Hypertension Plan Continue same treatment without any changes. Echocardiogram was within normal limits. Patient is currently on room air oxygen. Continue [facility] Continue IV Solu-Medrol Monitor the white cell count. Will continue to follow. Smoking cessation counseling Empiric antibiotic coverage with Augmentin.
[2024-01-12 16:25] LABS: Glucose,Whole Blood 205 mg/dL (70-110)
[2024-01-12 20:54] LABS: Glucose,Whole Blood 169 mg/dL (70-110)
[2024-01-13 05:31] LABS: Glucose,Whole Blood 152 mg/dL (70-110)
[2024-01-13 09:01] LABS: Blood Urea Nitrogen 17.7 mg/dL (9.0-27.0); Calcium 9.1 mg/dL (8.7-10.3); Carbon Dioxide 22.9 mmol/L (21.6-31.8); Chloride 98 mmol/L (96-109); Glucose 184 mg/dL (70-110); Potassium 4.7 mmol/L (3.5-5.5); Sodium 132 mmol/L (135-145)
[2024-01-13 09:10] LABS: Basophils # (A) 0.08 X 10*3/uL (0.00-0.10); Basophils % (A) 0.4 %; Eosinophils # (A) 1.03 X 10*3/uL (0.04-0.35); Eosinophils % (A) 5.4 %; HCT 39.3 % (37.2-46.3); Lymphocytes # (A) 0.48 X 10*3/uL (0.90-5.00); Lymphocytes % (A) 2.5 %; MCH 31.4 pg (27.0-32.0); MCHC 33.1 g/dL (32.0-37.0); MCV 94.9 FL (80.0-97.0); Mean Platelet Volume 10.7 FL (9.5-12.2); Monocytes % (A) 2.6 %; NRBC Per 100 WBC 0 X 10*3/uL (0.00-0.01); Neutrophils # (A) 16.84 X 10*3/uL (1.80-7.70); Neutrophils % (A) 87.5 %; Platelet Count 336 X 10*3/uL (140-440); RBC 4.14 X 10*6/uL (4.10-5.20); RBC Morphology Normal (Normal); RDW 15.8 % (11.5-14.5); WBC 19.24 X 10*3/uL (4.50-10.00)
--- NOTE | 2024-01-13 09:29 | P.PN ---
Subjective Progress Note Date: 01/11/24 Patient is a 73-year-old female with known history of COPD, hypertension rheumatoid arthritis with arthritic changes and CHF EF not known and prior history of thoracentesis and currently everyday smoker presents to ER with complaints of shortness of breath not improving for the past 3 weeks. Patient was on 2 courses of oral antibiotics as an outpatient. Patient is also complaining of left upper quadrant pain since last night when she sat on the side of the bed and was trying to citrus picker a pillow. Denies any fall otherwise. Patient is also complaining of back pain. Denies any fevers or chills. Patient did complete antibiotics with azithromycin and also levofloxacin. Patient is on prednisone 10 mg daily at home. Currently denies any cough or sputum production. No leg swelling. Denies any weight gain. No nausea vomiting abdominal pain or diarrhea. Chest x-ray showed no acute pulmonary process. Possible fullness of the right hilum. Consider follow-up CT chest to evaluate for pulmonary hypertension or underlying mass. EKG showed sinus tachycardia with heart rate 119 CTA chest was done due to elevated D-dimer level. Showed there may be 1 cm density versus scarring or atelectasis in the left anterior midlung follow-up PET CT can be performed. Moderate emphysematous changes. No acute pulmonary embolism. Laboratory data showed WBC 15.2 hemoglobin 16.2 platelets 417 D-dimer 0.96, sodium 126 potassium 4.4 chloride 98 bicarb is 15 BUN 16 and creatinine 0.54 and blood sugar 105 lactic acid 1.4 magnesium 1.8 AST 26 ALT 12 alk phos 168 and troponin 0.012 and proBNP 379 and albumin 3.7 Influenza AB RSV and COVID-19 PCR not detected. 01/11/2024 Patient is currently lying in the bed. Awake alert and oriented. No complaints of chest pain. Breathing status is better compared to yesterday. No complaints of nausea or vomiting. No headache or dizziness or lightheadedness. Patient is being continued on IV Solu-Medrol and DuoNebs and antibiotics in the form of Augmentin. Pulmonary is on board. Laboratory data showed WBC 14.9 hemoglobin 14.1 platelets 391 Sodium 132 potassium 4.5 chloride 100 bicarb is 17.8 BUN 10.5 and creatinine 0.4 and blood sugar 213 Current medications reviewed. Objective - Vital Signs Vital signs: Vital Signs Temp 98.4 F 01/11/24 07:25 Pulse 108 H 01/11/24 12:15 Resp 16 01/11/24 11:03 BP 135/75 01/11/24 07:25 Pulse Ox 92 L 01/11/24 07:25 FiO2 Intake & Output 01/10/24 01/11/24 01/11/24 18:59 06:59 18:59 Weight 43.545 kg Other: Voiding Method Toilet Toilet # Voids 2 - Exam PHYSICAL EXAMINATION: Patient is lying in the bed , no acute distress, awake alert and oriented. Patient is cachectic and malnourished. HEENT: Normocephalic. Neck is supple. Pupils reactive. Nostrils clear. Oral cavity is moist. Neck reveals no JVD, carotid bruits, or thyromegaly. CHEST EXAMINATION: Trachea is central. Symmetrical expansion. Improved bilateral air entry. No wheezing. Nonlabored breathing.. CARDIAC: Normal S1, S2 with no gallops. No murmurs ABDOMEN: Soft. Bowel sounds normal. No organomegaly. No abdominal bruits. Extremities: reveal no edema. No clubbing or cyanosis. Patient does have Neurologically awake, alert, oriented x 3 able to move all extremities. No gross focal deficits noted Skin: No rash or skin lesions. Psychiatric: Coperative. Nonsuicidal Musculoskeletal: No joint swelling or deformity. Rheumatoid arthritis changes - Labs CBC & Chem 7: 01/13/24 03:08 01/13/24 03:08 Labs: Abnormal Lab Results - Last 24 Hours (Table) 01/10/24 01/11/24 01/11/24 Range/Units 23:19 06:46 06:46 WBC 14.92 H (4.50-10.00) X 10*3/uL RDW 15.4 H (11.5-14.5) % Immature Gran # 0.06 H (0.00-0.04) X 10*3/uL Neutrophils # 14.45 H (1.80-7.70) X 10*3/uL Lymphocytes # 0.22 L (0.90-5.00) X 10*3/uL Monocytes # 0.15 L (0.20-1.00) X 10*3/uL Eosinophils # 0.03 L (0.04-0.35) X 10*3/uL Sodium 132 L (135-145) mmol/L Carbon Dioxide 17.8 L (21.6-31.8) mmol/L Anion Gap 14.20 H (4.00-12.00) mmol/L Creatinine 0.4 L (0.6-1.5) mg/dL BUN/Creatinine Ratio 26.25 H (12.00-20.00) Ratio Glucose 213 H (70-110) mg/dL Urine Ketones 1+ H (Negative) Assessment and Plan Assessment: Shortness of breath secondary to COPD exacerbation failed outpatient treatment Left anterior midlung 1 cm density scarring or atelectasis Prior history of left sided thoracentesis Hypovolemic hyponatremia with sodium 126 on admission Leukocytosis Hypertension Current everyday smoker Severe protein calorie malnutrition Chronic back pain and Rheumatoid arthritis with severe arthritic changes GI and DVT prophylaxis with PPI and heparin subcu Plan: Current with IV Solu-Medrol, DuoNebs and was given a dose of ceftriaxone in the ER. Continue with Augmentin currently. UA is negative for infection Patient will be started back on home blood pressure medications Chronic pain managed with [place] 10 as per home regimen. Insulin sliding scale for blood sugar control. Pulmonary is on board. Patient was seen by Dr. Donohue previously PT OT consult Continue to follow closely. Prognosis is guarded. Time with Patient: Greater than 30
--- NOTE | 2024-01-13 09:31 | P.PN ---
Subjective Progress Note Date: 01/12/24 Patient is a 73-year-old female with known history of COPD, hypertension rheumatoid arthritis with arthritic changes and CHF EF not known and prior history of thoracentesis and currently everyday smoker presents to ER with complaints of shortness of breath not improving for the past 3 weeks. Patient was on 2 courses of oral antibiotics as an outpatient. 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 Denies any fall otherwise. Patient is also complaining of back pain. Denies any fevers or chills. Patient did complete antibiotics with azithromycin and also levofloxacin. Patient is on prednisone 10 mg daily at home. Currently denies any cough or sputum production. No leg swelling. Denies any weight gain. No nausea vomiting abdominal pain or diarrhea. Chest x-ray showed no acute pulmonary process. Possible fullness of the right hilum. Consider follow-up CT chest to evaluate for pulmonary hypertension or underlying mass. EKG showed sinus tachycardia with heart rate 119 CTA chest was done due to elevated D-dimer level. Showed there may be 1 cm density versus scarring or atelectasis in the left anterior midlung follow-up PET CT can be performed. Moderate emphysematous changes. No acute pulmonary embolism. Laboratory data showed WBC 15.2 hemoglobin 16.2 platelets 417 D-dimer 0.96, sodium 126 potassium 4.4 chloride 98 bicarb is 15 BUN 16 and creatinine 0.54 and blood sugar 105 lactic acid 1.4 magnesium 1.8 AST 26 ALT 12 alk phos 168 and troponin 0.012 and proBNP 379 and albumin 3.7 Influenza AB RSV and COVID-19 PCR not detected. 01/11/2024 Patient is currently lying in the bed. Awake alert and oriented. No complaints of chest pain. Breathing status is better compared to yesterday. No complaints of nausea or vomiting. No headache or dizziness or lightheadedness. Patient is being continued on IV Solu-Medrol and DuoNebs and antibiotics in the form of Augmentin. Pulmonary is on board. Laboratory data showed WBC 14.9 hemoglobin 14.1 platelets 391 Sodium 132 potassium 4.5 chloride 100 bicarb is 17.8 BUN 10.5 and creatinine 0.4 and blood sugar 213 01/12/2024 Patient is resting in bed. Awake alert and oriented x 3. Still having shortness of breath with minimal exertion. Continued on IV steroids and DuoNebs and antibiotics grunting. Patient has been afebrile. No headache or dizziness lightheadedness. Feels slightly better than yesterday. Echocardiogram showed preserved LV systolic function. Asymmetric septal hypertrophy. Mild aortic stenosis. Laboratory data showed WBC went up to 22.5 hemoglobin 13.8 and platelets 402, sodium 130 potassium 4.6 chloride 105 bicarb is 18 BUN 17 and creatinine 0.44 and blood sugar is 150. Pulmonary is on board. Current medications reviewed. Objective - Vital Signs Vital signs: Vital Signs Temp 99.1 F 01/12/24 20:00 Pulse 104 H 01/12/24 21:47 Resp 17 01/12/24 20:00 BP 143/79 01/12/24 20:00 Pulse Ox 91 L 01/12/24 20:00 FiO2 21 01/12/24 09:29 Intake & Output 01/12/24 01/12/24 01/13/24 06:59 18:59 06:59 Other: Voiding Method Toilet Toilet Toilet # Voids 2 2 - Exam PHYSICAL EXAMINATION: Patient is lying in the bed , no acute distress, awake alert and oriented. Patient is cachectic and malnourished. HEENT: Normocephalic. Neck is supple. Pupils reactive. Nostrils clear. Oral cavity is moist. Neck reveals no JVD, carotid bruits, or thyromegaly. CHEST EXAMINATION: Trachea is central. Symmetrical expansion. Improved bilateral air entry. No wheezing. Nonlabored breathing.. CARDIAC: Normal S1, S2 with no gallops. No murmurs ABDOMEN: Soft. Bowel sounds normal. No organomegaly. No abdominal bruits. Extremities: reveal no edema. No clubbing or cyanosis. Patient does have Neurologically awake, alert, oriented x 3 able to move all extremities. No gr oss focal deficits noted Skin: No rash or skin lesions. Psychiatric: Coperative. Nonsuicidal Musculoskeletal: No joint swelling or deformity. Rheumatoid arthritis changes - Labs CBC & Chem 7: 01/13/24 03:08 01/13/24 03:08 Labs: Abnormal Lab Results - Last 24 Hours (Table) 01/12/24 01/12/24 01/12/24 Range/Units 05:36 07:17 07:17 WBC 22.5 H (3.8-10.6) k/uL Neutrophils # 21.3 H (1.3-7.7) k/uL Lymphocytes # 0.5 L (1.0-4.8) k/uL Sodium 130 L (137-145) mmol/L Carbon Dioxide 18 L (22-30) mmol/L Creatinine 0.44 L (0.52-1.04) mg/dL Glucose 150 H (74-99) mg/dL POC Glucose (mg/dL) 151 H (70-110) mg/dL 01/12/24 01/12/24 01/12/24 Range/Units 11:56 16:23 20:52 WBC (3.8-10.6) k/uL Neutrophils # (1.3-7.7) k/uL Lymphocytes # (1.0-4.8) k/uL Sodium (137-145) mmol/L Carbon Dioxide (22-30) mmol/L Creatinine (0.52-1.04) mg/dL Glucose (74-99) mg/dL POC Glucose (mg/dL) 178 H 205 H 169 H (70-110) mg/dL Microbiology - Last 24 Hours (Table) 01/10/24 11:03 Blood Culture - Preliminary Blood 01/10/24 10:53 Blood Culture - Preliminary Blood Assessment and Plan Assessment: Shortness of breath secondary to COPD exacerbation failed outpatient treatment Leukocytosis likely due to steroids. Left anterior midlung 1 cm density scarring or atelectasis Prior history of left sided thoracentesis Hypovolemic hyponatremia with sodium 126 on admission Leukocytosis Hypertension Current everyday smoker Severe protein calorie malnutrition Chronic back pain and Rheumatoid arthritis with severe arthritic changes GI and DVT prophylaxis with PPI and heparin subcu Plan: Current with IV Solu-Medrol, DuoNebs and was given a dose of ceftriaxone in the ER. Continue with Augmentin currently. UA is negative for infection Patient will be started back on home blood pressure medications, lisinopril 10 mg daily Chronic pain managed with [place] 10 as per home regimen. Insulin sliding scale for blood sugar control. Pulmonary is on board. Patient was seen by Dr. Donohue previously PT OT consult Dispo discharge in next 24 to 48 hours. Continue to follow closely. Prognosis is guarded. Time with Patient: Greater than 30
[2024-01-13] MEDS: lisinopriL 10 MG TAB PO SCH (11:03)
[2024-01-13 12:06] LABS: Glucose,Whole Blood 154 mg/dL (70-110)
[2024-01-13 12:43] VITALS: BMI 18.7
--- NOTE | 2024-01-13 15:10 | P.PN ---
Subjective Progress Note Date: 01/13/24 On 01/11/2024, the patient is being seen for cardiac consultation as the patient came into the hospital yesterday because of worsening shortness of breath. The patient is known to have COPD and the patient smokes around half pack of cigarettes a day. The patient is having increased dyspnea cough chest co ngestion chest tightness and wheeze along with some nonspecific chest pain not related to exertion without any radiation. No fever or chills. The viral screen has been negative including COVID-19 influenza and flu. Chest x-ray was showing COPD and a CAT scan of the chest was also done and showed no evidence of any pulmonary embolism that was consistent with COPD and presence of centrilobular emphysema moderate disease. A density is also seen in the left anterior midlung area which is probably an area of scar/atelectasis. The patient's white cell count was at 15.2 with a hemoglobin of 16.2 and a platelet count of 417. Sodium levels at 132 up from 126 at time of admission and the patient has a serum bicarb of 17 with a BUN of 10 and a creatinine of 0.4. Troponins were negative. proBNP level is nonelevated. UA has been also negative. She is on [facility]. Does not utilize any form of maintenance respiratory medication outpatient basis. She is currently on 2 L of oxygen by nasal cannula. She is on IV Solu-Medrol. She also has rheumatoid arthritis and several years back she had developed a left-sided pleural effusion which was attributed to rheumatoid arthritis. No recurrence since. She is maintained on 10 mg of prednisone on outpatient basis. Echocardiogram was also obtained today and the patient was found to have a normal left ventricular ejection fraction, a symmetric septal hypertrophy with mild aortic stenosis. On today's evaluation of 01/12/2024. The patient continues to be short of breath. She remains on bronchodilators and steroids. Limited improvement since yesterday. On examination, she has improved air entry. She is on empiric antibiotic coverage with Augmentin. Labs from today shows a WBC count of 22 with a hemoglobin 13.8 and a platelet count of 402. BUN is at 17 with a creatinine of 0.44 and serum bicarb is up to 18 with a sodium level of 130. Echocardiogram was completed and the patient has a preserved LV function. No significant LV dysfunction. No significant valvular abnormalities. No evidence of any pericardial effusion. Mild aortic stenosis. The patient is seen today January 13, 2024 in follow-up on the regular medical floor. He is currently resting comfortably in bed. Awake and alert in no acute distress. Maintaining good O2 saturations in the 90s on room air. Has been afebrile. Hemodynamically stable. Blood cultures revealed no growth. White count 19.2. Hemoglobin 13.0. Platelets 336. Sodium 132. Potassium 4.7. Bicarb 23. BUN 18. Creatinine 0.5. Glucose 184. She is continued on DuoNeb ventilations, Solu-Medrol. Antibiotics in the form of Augmentin. Heparin for DVT prophylaxis. Objective - Vital Signs Vital signs: Vital Signs Temp 98.0 F 01/13/24 13:30 Pulse 109 H 01/13/24 13:30 Resp 17 01/13/24 13:30 BP 110/69 01/13/24 13:30 Pulse Ox 90 L 01/13/24 13:30 FiO2 21 01/12/24 09:29 Intake & Output 01/12/24 01/13/24 01/13/24 18:59 06:59 18:59 Weight 43.545 kg Other: Voiding Method Toilet Toilet # Voids 2 2 - Exam GENERAL EXAM: Alert, pleasant 73-year-old female, resting in bed, on room air, comfortable in no apparent distress. HEAD: Normocephalic. EYES: Normal reaction of pupils, equal size. NOSE: Clear with pink turbinates. THROAT: No erythema or exudates. NECK: No masses, no JVD. CHEST: No chest wall deformity. LUNGS: Equal air entry with no crackles, wheeze, rhonchi or dullness. CVS: S1 and S2 normal with no audible murmur, regular rhythm. ABDOMEN: No hepatosplenomegaly, normal bowel sounds, no guarding or rigidity. SPINE: No scoliosis or deformity SKIN: No rashes CENTRAL NERVOUS SYSTEM: No focal deficits, tone is normal in all 4 extremities. EXTREMITIES: There is no peripheral edema. No clubbing, no cyanosis. Pe ripheral pulses are intact. - Labs CBC & Chem 7: 01/13/24 03:08 01/13/24 03:08 Labs: Abnormal Lab Results - Last 24 Hours (Table) 01/12/24 01/12/2424 Range/Units 16:23 20:52 03:08 WBC 19.24 H (4.50-10.00) X 10*3/uL RDW 15.8 H (11.5-14.5) % Immature Gran # 0.31 H (0.00-0.04) X 10*3/uL Neutrophils # 16.84 H (1.80-7.70) X 10*3/uL Lymphocytes # 0.48 L (0.90-5.00) X 10*3/uL Eosinophils # 1.03 H (0.04-0.35) X 10*3/uL Sodium (135-145) mmol/L Creatinine (0.6-1.5) mg/dL BUN/Creatinine Ratio (12.00-20.00) Ratio Glucose (70-110) mg/dL POC Glucose (mg/dL) 205 H 169 H (70-110) mg/dL 01/13/24 01/13/24 01/13/24 Range/Units 03:08 05:29 12:04 WBC (4.50-10.00) X 10*3/uL RDW (11.5-14.5) % Immature Gran # (0.00-0.04) X 10*3/uL Neutrophils # (1.80-7.70) X 10*3/uL Lymphocytes # (0.90-5.00) X 10*3/uL Eosinophils # (0.04-0.35) X 10*3/uL Sodium 132 L (135-145) mmol/L Creatinine 0.5 L (0.6-1.5) mg/dL BUN/Creatinine Ratio 35.40 H (12.00-20.00) Ratio Glucose 184 H (70-110) mg/dL POC Glucose (mg/dL) 152 H 154 H (70-110) mg/dL Microbiology - Last 24 Hours (Table) 01/10/24 11:03 Blood Culture - Preliminary Blood 01/10/24 10:53 Blood Culture - Preliminary Blood Assessment and Plan Assessment: Acute exacerbation of COPD with secondary shortness of breath Chest pain, atypical, likely related to COPD exacerbation. Cardiac enzymes are negative. EKG is showing old Q waves over the anteroseptal leads. Echocardiogram is showing present of the function with asymmetric septal hypertrophy. Mild leukocytosis Hyponatremia, recovered with fluids History of rheumatoid arthritis History of pleural effusion attributed to RA, drained Chronic smoker Hypertension Plan: The patient was seen and evaluated Labs and medications reviewed Stable and on room air Cleared for discharge Educated regarding the importance of smoking cessation Complete a course of antibiotics Complete a prednisone taper Continue Dulera and albuterol HFA Follow-up in the office in 1 week This patient was seen independently by the pulmonary nurse practitioner addressing pulmonary issues I have personally seen and examined the patient, performed the documentation and the assessment and plan as written. Number of minutes spent on the visit: 24.
[2024-01-13 15:30] VITALS: BP 110/69; PULSE 109; RESP 17; TEMP 98
--- NOTE | 2024-01-14 10:44 | P.DS ---
Providers Date of admission: 01/10/24 14:11 Expected date of discharge: 01/13/24 Attending physician: Ashley Shane Consults: 01/10/24 23:00 Consult Physician Routine Consulting Provider: Leonidas Laureano Consult Reason/Comments: Severe COPD Do you want consulting provider notified?: Yes, Notify in am Primary care physician: Popeye Dupont Hospital Course: Final diagnosis Shortness of breath secondary to COPD exacerbation failed outpatient treatment Leukocytosis likely due to steroids. Left anterior midlung 1 cm density scarring or atelectasis Prior history of left sided thoracentesis Hypovolemic hyponatremia with sodium 126 on admission, improved Hypertension Current everyday smoker Severe protein calorie malnutrition Chronic back pain history Rheumatoid arthritis with severe arthritic changes GI and DVT prophylaxis No code Discharge disposition Patient is being discharged in a stable condition with guarded prognosis to home. Patient will follow-up with Dr. Dupont in the outpatient setting upon discharge. Patient is to continue with prednisone taper and close outpatient follow-up with pulmonary as scheduled. Total time taken is greater than 35 minutes. Hospital course This is a 73-year-old female with increasing shortness of breath with COPD exacerbation being closely monitored with pulmonary following closely. Patient is maintained on DuoNeb treatments [id number] as well as IV steroids showing improvement and is currently on room air. Patient reports she does use inhalers as needed. Patient has been evaluated by pulmonary today recommending close outpatient follow-up and continue on a prednisone taper and outpatient follow-up as there is a left anterior mid lung 1 cm density. Patient reports to feeling well and would like to go home. Please refer to pulmonary notes for further HPI. Currently no reports of chest pain, no worsening shortness of breath, or palpitations. Patient is afebrile. No reports of nausea or vomiting and patient is tolerating diet. Patient will be discharged home today. Guarded prognosis and high risk for readmissions given patient's significant comorbidities. Complete tobacco cessation has been counseled. Physical exam: Gen: This is a 73-year-old female who is awake, alert and oriented x 3, well- developed, thin built, elderly appearing HEENT: Head is atraumatic, normocephalic. Pupils equal, round. Sclerae is anicteric. NECK: Supple. No JVD. No lymphadenopathy. No thyromegaly. LUNGS: Diminished breath sounds bilaterally with coarse rhonchi and some expiratory wheezing noted. No intercostal retractions. HEART: S1, S2 are muffled ABDOMEN: Soft. Bowel sounds are present. No masses. No tenderness. EXTREMITIES: No pedal edema. No calf tenderness. NEUROLOGICAL: Patient is awake, alert and oriented x3. Cranial nerves 2 through 12 are grossly intact. Please refer to medication reconciliation sheet for a list of medications. The impression and plan of care has been dictated by Dali Patel, Nurse Practitioner as directed. Dr. Beltran MD I have performed a history and examination and MDM of this patient, discussed the same with the dictator, and agree with the dictator's assessment and plan as written ,documented as a scribe. Based on total visit time, I have performed more than 50% of the visit. Patient Condition at Discharge: Fair Plan - Discharge Summary New Discharge Prescriptions: New Amoxic-Pot Clav 875-125Mg [Augmentin 875-125] 1 each PO Q12HR 7 Days #14 tab Mometasone/Formoterol [Dulera 200 Mcg-5 Mcg Inhaler] 1 puff INHALATION BID #13 gm predniSONE 10 mg PO DIRECTED #30 tab Continue Albuterol Sulfate [Albuterol Sulfate Hfa] 1 - 2 puff PO RT-Q4H PRN PRN Reason: Shortness Of Breath HYDROcodone/APAP 10-325MG [[place] 10-325] 1 tab PO Q8H PRN PRN Reason: Pain lisinopriL [Zestril] 10 mg PO DAILY predniSONE 10 mg PO DAILY Benzonatate [Tessalon Perles] 100 mg PO TID PRN PRN Reason: Cough Celecoxib [CeleBREX] 200 mg PO BID PRN PRN Reason: Pain Levocetirizine Dihydrochloride [Xyzal] 5 mg PO HS PRN PRN Reason: Allergy Symptoms Discontinued Levofloxacin [Levaquin] 500 mg PO HS Discharge Medication List Albuterol Sulfate [Albuterol Sulfate Hfa] 1 - 2 puff PO RT-Q4H PRN 01/10/24 [History] Benzonatate [Tessalon Perles] 100 mg PO TID PRN 01/10/24 [History] Celecoxib [CeleBREX] 200 mg PO BID PRN 01/10/24 [History] HYDROcodone/APAP 10-325MG [[place] 10-325] 1 tab PO Q8H PRN 01/10/24 [History] Levocetirizine Dihydrochloride [Xyzal] 5 mg PO HS PRN 01/10/24 [History] lisinopriL [Zestril] 10 mg PO DAILY 01/10/24 [History] predniSONE 10 mg PO DAILY 01/10/24 [History] Amoxic-Pot Clav 875-125Mg [Augmentin 875-125] 1 each PO Q12HR 7 Days #14 tab 01/13/24 [Rx] Mometasone/Formoterol [Dulera 200 Mcg-5 Mcg Inhaler] 1 puff INHALATION BID #13 gm 01/13/24 [Rx] predniSONE 10 mg PO DIRECTED #30 tab 01/13/24 [Rx] Follow up Appointment(s)/Referral(s): [facility] [facility] [NON-STAFF] - As Needed (Call to inquire about services offered like housekeeping, caregiver, and Meals on Wheels. ) Popeye Dupont MD [Primary Care Provider] - 1-2 days Carly Triana MD [STAFF PHYSICIAN] - 1 Week Activity/Diet/Wound Care/Special Instructions: Activity limited until follow-up Follow-up with primary care provider on discharge Follow-up with pulmonary outpatient Continue taking medications as prescribed Continue with inhalers and discussed with pulmonary outpatient if requiring continued nebulized treatments Discharge Disposition: HOME SELF-CARE
== END 2024-01-13 16:12 | disposition home or self-care (01) | DRG 190 ==
LOC: EC 09:22 → 4SSUR 14:11
PROVIDERS: ADMIT Internal Medicine; ATTEND Internal Medicine
DX: J44.1 Chronic obstructive pulmonary disease with (acute) exacerbation (principal); E43 Unspecified severe protein-calorie malnutrition; E87.1 Hypo-osmolality and hyponatremia; Z68.1 Body mass index [BMI] 19.9 or less, adult; J98.11 Atelectasis; Z66 Do not resuscitate; M06.9 Rheumatoid arthritis, unspecified; I50.9 Heart failure, unspecified; I11.0 Hypertensive heart disease with heart failure; T38.0X5A Adverse effect of glucocorticoids and synthetic analogues, initial encounter; D72.829 Elevated white blood cell count, unspecified; E86.1 Hypovolemia; M54.9 Dorsalgia, unspecified; M81.0 Age-related osteoporosis without current pathological fracture; G89.29 Other chronic pain; F17.210 Nicotine dependence, cigarettes, uncomplicated; Z71.6 Tobacco abuse counseling; Z28.310 Unvaccinated for COVID-19; Z79.899 Other long term (current) drug therapy; Z79.890 Hormone replacement therapy; Z79.52 Long term (current) use of systemic steroids; Z79.1 Long term (current) use of non-steroidal anti-inflammatories (NSAID)
CPT/HCPCS: 36415; 71046; 71275; 80048; 80053; 81003; 83036; 83605; 83735; 83880; 84484; 85025; 85379; 85610; 85730; 87040; 87636; 93005; 93306; 94640; 94760; 96365; 96375; 99285

== ENCOUNTER 2024-01-19 00:43 | Inpatient (IN) | payer MEDICARE ==
[2024-01-19] MEDS: SODIUM CHLORIDE 0.9% 500 ML 500 ML IV STA ×2 (01:05→01:06)
[2024-01-19] MEDS: IPRATROPIUM-ALBUTEROL 3 ML NEB INHALATION STA (01:07)
[2024-01-19] MEDS: HEPARIN SOD,PORK IN 0.45% NACL 25,000 UNIT in 0.45% NACL 1 250ML.BAG IV SCH (01:07)
[2024-01-19 01:14] LABS: Basophils % (A) 0 %; Eosinophils # (A) 0.2 k/uL (0-0.7); Eosinophils % (A) 1 %; HCT 41.3 % (34.0-46.0); HGB 13.8 gm/dL (11.4-16.0); Lymphocytes # (A) 0.6 k/uL (1.0-4.8); Lymphocytes % (A) 3 %; MCHC 33.4 g/dL (31.0-37.0); Mean Platelet Volume 7.6; Monocytes # (A) 0.6 k/uL (0-1.0); Monocytes % (A) 3 %; Neutrophils # (A) 21.4 k/uL (1.3-7.7); Neutrophils % (A) 94 %; Platelet Count 358 k/uL (150-450); RBC 4.31 m/uL (3.80-5.40); RDW 14.4 % (11.5-15.5); WBC 22.9 k/uL (3.8-10.6)
[2024-01-19 01:40] LABS: ALT 24 U/L (4-34); African American GFR (CKD) >90 (>60 ml/min/1.73 sqM); Albumin 3.1 g/dL (3.5-5.0); Anion Gap 4 mmol/L; Blood Urea Nitrogen 45 mg/dL (7-17); Calcium 8.7 mg/dL (8.4-10.2); Carbon Dioxide 28 mmol/L (22-30); Chloride 100 mmol/L (98-107); Glucose 169 mg/dL (74-99); Non-African American GFR(CKD) >90 (>60 ml/min/1.73 sqM); Sodium 132 mmol/L (137-145); Total Bilirubin 0.9 mg/dL (0.2-1.3); Total Protein 5.4 g/dL (6.3-8.2)
[2024-01-19 01:46] LABS: AST 64 U/L (14-36); Alkaline Phosphatase 121 U/L (38-126); Magnesium 2.6 mg/dL (1.6-2.3); Potassium 4.7 mmol/L (3.5-5.1)
[2024-01-19 01:49] LABS: NT-Pro-B-Type Natriuretic Pept 21100 pg/mL
[2024-01-19 01:50] LABS: Partial Thromboplastin Time 101.4 sec (22.0-30.0)
[2024-01-19] MEDS: ASPIRIN 81 MG PO STA (02:21)
[2024-01-19] MEDS ORDERED: PNEUMONIA PROTOCOL UTILIZED 1 EACH MISC PO PRN (02:37)
--- NOTE | 2024-01-19 02:53 | ED ---
General Adult HPI - General Chief complaint: Shortness of Breath Stated complaint: Elevated Troponin Time Seen by Provider: 01/19/24 00:51 Source: patient, EMS, RN notes reviewed, old records reviewed Mode of arrival: EMS - History of Present Illness Initial comments: Patient is a 73-year-old female who presents emergency department complaining of atypical chest pain and dyspnea. Has a history of COPD, hypertension, rheumatoid arthritis. Was recently admitted to our hospital for COPD exacerbation and discharged home on steroids, antibiotics, breathing treatments with the goal of obtaining home oxygen. Apparently patient had been doing well until yesterday. Began experiencing worsening shortness of breath. Was found to have oxygen in the mid ED presents with increased work of breathing. Presents for further evaluation at this time. Denies any new chest pain but has a history of chronic chest pain for the last 6 weeks. States it started with a cold she had approximately at that time. States it is sharp, worse with deep inspiration and worse with palpation and movements. Controlled with [place] 10. This is unchanged. Denies any new chest pain, radiation of the chest pain, sweating, nausea, vomiting. Patient is a no code. Patient was transferred from [facility] with these complaints where she was found to be a COPD exacerbation with NSTEMI. - Related Data Home Medications Medication Instructions Recorded Confirmed Albuterol Sulfate [Albuterol 1 - 2 puff INHALATION RT-Q4H PRN 01/10/24 01/19/24 Sulfate Hfa] Benzonatate [Tessalon Perles] 100 mg PO TID PRN 01/10/24 01/19/24 Celecoxib [CeleBREX] 200 mg PO BID PRN 01/10/24 01/19/24 HYDROcodone/APAP 10-325MG [[place] 1 tab PO Q8H PRN 01/10/24 01/19/24 10-325] Levocetirizine Dihydrochloride 5 mg PO HS PRN 01/10/24 01/19/24 [Xyzal] lisinopriL [Zestril] 10 mg PO DAILY 01/10/24 01/19/24 predniSONE 10 mg PO DIRECTED 01/10/24 01/19/24 Amoxic-Pot Clav 875-125Mg 1 tab PO Q12HR 01/19/24 01/19/24 [Augmentin 875-125] Mometasone/Formoterol [Dulera 200 1 puff INHALATION RT-BID 01/19/24 01/19/24 Mcg-5 Mcg Inhaler] predniSONE See Taper PO DIRECTED 01/19/24 01/19/24 Allergies Allergy/AdvReac Type Severity Reaction Status Date / Time No Known Allergies Allergy Verified 01/19/24 09:10 Review of Systems ROS Statement: Those systems with pertinent positive or pertinent negative responses have been documented in the HPI. Review of Systems: CONST: Denies fever EYES: Denies blurry vision ENT: Denies nasal congestion C/V: Endorses chronic chest wall pain RESP: Endorses difficulty in breathing GI: Denies abdominal pain : Denies dysuria SKIN: Denies rash. MSK: Denies joint pain. NEURO: Denies headache ROS Other: All systems not noted in ROS Statement are negative. Past Medical History Past Medical History: Heart Failure, COPD, Hypertension, Rheumatoid Arthritis (RA) History of Any Multi-Drug Resistant Organisms: None Reported Past Surgical History: No Surgical Hx Reported Past Psychological History: No Psychological Hx Reported Smoking Status: Current every day smoker Past Alcohol Use History: None Reported Past Drug Use History: None Reported - Past Family History Mother Family Medical History: Diabetes Mellitus Additional Family Medical History / Comment(s): Rhumatic fever, hole in heart General Exam - General Exam Comments Initial Comments: General: Appears in no acute distress. HEAD: Normal with no signs of head trauma. EYES: PERRLA, EOMI, conjunctiva normal, no discharge. ENT: Hearing grossly intact, normal oropharynx. RESPIRATORY: Bilateral end expiratory wheezing and tight breath sounds. Hypoxia on room air, improved on 2 to 4 L nasal cannula ranging anywhere from 90 to 94%. C/V: Tachycardic and regular rhythm. S1 and S2 auscultated, no significant lower extremity edema, peripheral pulses 2+ and intact throughout. Patient has upper sternal and rib tenderness on palpation and worse with movements. Seems to be chest wall pain. States it has been this way for 4 to 6 weeks. No acute change. ABD: Abd is soft, nontender, nondistended EXT: Normal range of motion, no obvious deformity SKIN: No rashes or lesions observed on exposed skin. NEURO: Alert and oriented x 4. Course Vital Signs 01/19/24 01/19/24 01/19/24 00:46 01:10 01:15 Temperature 99.8 F H Pulse Rate 126 H 112 H 112 H Respiratory 20 Rate Blood Pressure 98/63 O2 Sat by Pulse 92 L Oximetry 01/19/24 01/19/24 01/19/24 03:10 04:00 05:00 Temperature Pulse Rate 98 106 H 107 H Respiratory 20 16 14 Rate Blood Pressure 98/73 94/70 85/61 O2 Sat by Pulse 92 L 92 L 93 L Oximetry 01/19/24 01/19/24 01/19/24 05:30 06:00 06:30 Temperature Pulse Rate 90 104 H 92 Respiratory 14 14 19 Rate Blood Pressure 85/63 87/62 96/65 O2 Sat by Pulse 92 L 92 L 93 L Oximetry 01/19/24 01/19/24 01/19/24 07:48 08:27 08:36 Temperature Pulse Rate 89 90 Respiratory 18 Rate Blood Pressure 91/65 O2 Sat by Pulse 96 94 L Oximetry 01/19/24 01/19/24 01/19/24 08:40 10:05 10:49 Temperature Pulse Rate 92 94 92 Respiratory 18 18 Rate Blood Pressure 100/73 102/67 O2 Sat by Pulse 98 98 Oximetry 01/19/24 01/19/24 01/19/24 12:19 14:34 15:43 Temperature Pulse Rate 92 93 89 Respiratory 18 24 Rate Blood Pressure 110/77 86/61 O2 Sat by Pulse 95 93 L Oximetry 01/19/24 01/19/24 15:55 16:11 Temperature 98.5 F Pulse Rate 92 95 Respiratory 22 Rate Blood Pressure 90/61 O2 Sat by Pulse 92 L Oximetry Medical Decision Making - Medical Decision Making Was pt. sent in by a medical professional or institution (, PA, PATIENT SERVICES ASSISTANT, urgent care, hospital, or shelter...) When possible be specific @ -Transfer from [facility]. Transfer for NSTEMI, COPD Did you speak to anyone other than the patient for history (EMS, parent, family, police, friend...)? What history was obtained from this source @ -Both the patient's [id number]'s were at bedside and I updated them frequently as well as the patient. Did you review nursing and triage notes (agree or disagree)? Why? @ -I reviewed and agree with nursing and triage notes Were old charts reviewed (outside hosp., previous admission, EMS record, old E KG, old radiological studies, urgent care reports/EKG's, shelter records)? Report findings @ -Old charts reviewed Differential Diagnosis (chest pain, altered mental status, abdominal pain women, abdominal pain men, vaginal bleeding, weakness, fever, dyspnea, syncope, headache, dizziness, GI bleed, back pain, seizure, CVA, palpatations, mental health, musculoskeletal)? @ -Differential Dyspnea: Coronary syndrome, arrhythmia, tamponade, asthma, COPD, pulmonary embolism, pneumonia, pneumothorax, pulmonary effusion, anaphylaxis, diabetic ketoacidosis, flailed chest, pulmonary contusion, diaphragmatic rupture, anemia, neuromuscular, this is not meant to be an all-inclusive list. EKG interpreted by me (3pts min.). @ -As above X-rays interpreted by me (1pt min.). @ -None done. Patient had chest x-ray performed at outside hospital. CT interpreted by me (1pt min.). @ -None done U/S interpreted by me (1pt. min.). @ -None done What testing was considered but not performed or refused? (CT, X-rays, U/S, labs)? Why? @ -Chest x-ray reviewed from prior facility and showed no obvious acute findings. What meds were considered but not given or refused? Why? @ -None Did you discuss the management of the patient with other professionals (professionals i.e. , PA, PATIENT SERVICES ASSISTANT, lab, RT, psych nurse, director social, law office assistant, teacher, custom protection officer, case checker)? Give summary @ -Discussed with Dr. Borja of cardiology due to the elevated troponin as well as discussed EKG findings. Was in agreement with continuing the plan for heparin and they will evaluate the patient in the morning. EKG reviewed with him. Spoke with admitting team, MARLEE Mike of [facility] who accepted the admission. Was smoking cessation discussed for >3mins.? @ -No Was critical care preformed (if so, how long)? @ -Yes, 35 minutes. Were there social determinants of health that impacted care today? How? (Homelessness, low income, unemployed, alcoholism, drug addiction, transportation, low edu. Level, literacy, decrease access to med. care, alf, rehab)? @ -No Was there de-escalation of care discussed even if they declined (Discuss DNR or withdrawal of care, Hospice)? DNR status @ -Confirmed patient is DNR What co-morbidities impacted this encounter? (DM, HTN, Smoking, COPD, CAD, Cancer, CVA, ARF, Chemo, Hep., AIDS, mental health diagnosis, sleep apnea, morbid obesity)? @ -COPD, hypertension Was patient admitted / discharged? Hospital course, mention meds given and route, prescriptions, significant lab abnormalities, going to OR and other pertinent info. @ -Based on patient's presentation and physical exam, presents emergency department complaining of difficulty in breathing. Was transferred from [facility]. Has chronic atypical chest pain for weeks that is unchanged. Workup at the other facility remarkable for an NSTEMI and COPD exacerbation. Transferred here for further care. Repeat labs were obtained here and were remarkable for a leukocytosis of 22, and patient has been on antibiotics as well as steroids at home for COPD over the last few days. This is similar to the l evel she was discharged at a few days ago. Troponin is elevated to 4.1. BNP is also elevated. Echo on last admission showed no evidence of CHF. CTA on last admission showed no evidence of PE. Imaging modalities were completed 1 week ago. We are continuing the heparin drip at this time. Patient will be given a dose of IV antibiotics as well, Levaquin we will continue with breathing treatments and IV steroids. Patient in agreement this plan. Unknown if she received aspirin as she does not believe she did due to the elevated troponin I did provide her with 324 mg of aspirin. Patient given a dose of [place] for her chest pain which improved, as it normally does. Multiple EKG showed no evidence of acute ischemia. Wheezing is improved at this time. I was able to down titrate the patient's oxygen from 4 L to 2 L maintaining adequate saturations following breathing treatments.Leukocytosis could be secondary to significant steroid use or possible infection. Was similar to time of discharge earlier this week. However patient will be given an empiric dose of IV antibiotics as she is still supposed to be on Augmentin in the outpatient setting. I discussed results with the patient. She is resting comfortably at this time. I did contact cardiology due to the significantly elevated troponin. Dr. Eller was in agreement with the plan for management including heparin as well as r eviewing EKG with myself. I spoke with admitting MLKalli Mike of [facility] who accepted the admission. Vital signs are within acceptable limits, With improvement of patient's heart rate, [place], as well has stable blood pressure. CODE STATUS confirmed as DNR with patient as well as family members. Undiagnosed new problem with uncertain prognosis? @ -No Drug Therapy requiring intensive monitoring for toxicity (Heparin, Nitro, Insulin, Cardizem)? @ -Heparin Were any procedures done? @ -No Diagnosis/symptom? @ -COPD exacerbation, NSTEMI, leukocytosis Acute, or Chronic, or Acute on Chronic? @ -Acute Uncomplicated (without systemic symptoms) or Complicated (systemic symptoms)? @ -Complicated Side effects of treatment? @ -No Exacerbation, Progression, or Severe Exacerbation? @ -No Poses a threat to life or bodily function? How? (Chest pain, [place], [place], pneumonia, PE, COPD, DKA, ARF, appy, cholecystitis, CVA, Diverticulitis, Homicidal, Suicidal, threat to staff... and all critical care pts) @ -Yes - Lab Data Result diagrams: 01/20/24 06:38 01/20/24 06:38 Lab Results 01/19/24 01/19/24 01/19/24 Range/Units 01:02 01:02 01:02 WBC 22.9 H (3.8-10.6) k/uL RBC 4.31 (3.80-5.40) m/uL Hgb 13.8 (11.4-16.0) gm/dL Hct 41.3 (34.0-46.0) % MCV 96.0 (80.0-100.0) fL MCH 32.0 (25.0-35.0) pg MCHC 33.4 (31.0-37.0) g/dL RDW 14.4 (11.5-15.5) % Plt Count 358 (150-450) k/uL MPV 7.6 Neutrophils % 94 % Lymphocytes % 3 % Monocytes % 3 % Eosinophils % 1 % Basophils % 0 % Neutrophils # 21.4 H (1.3-7.7) k/uL Lymphocytes # 0.6 L (1.0-4.8) k/uL Monocytes # 0.6 (0-1.0) k/uL Eosinophils # 0.2 (0-0.7) k/uL Basophils # 0.0 (0-0.2) k/uL PT 11.0 (10.0-12.5) sec INR 1.0 (<1.2) APTT 101.4 H* (22.0-30.0) sec Sodium 132 L (137-145) mmol/L Potassium 4.7 (3.5-5.1) mmol/L Chloride 100 (98-107) mmol/L Carbon Dioxide 28 (22-30) mmol/L Anion Gap 4 mmol/L BUN 45 H (7-17) mg/dL Creatinine 0.58 (0.52-1.04) mg/dL Est GFR (CKD-EPI)AfAm >90 (>60 ml/min/1.73 sqM) Est GFR (CKD-EPI)NonAf >90 (>60 ml/min/1.73 sqM) Glucose 169 H (74-99) mg/dL Calcium 8.7 (8.4-10.2) mg/dL Magnesium 2.6 H (1.6-2.3) mg/dL Total Bilirubin 0.9 (0.2-1.3) mg/dL AST 64 H (14-36) U/L ALT 24 (4-34) U/L Alkaline Phosphatase 121 (38-126) U/L Troponin I (0.000-0.034) ng/mL NT-Pro-B Natriuret Pep 73715 pg/mL Total Protein 5.4 L (6.3-8.2) g/dL Albumin 3.1 L (3.5-5.0) g/dL 01/19/24 Range/Units 01:02 WBC (3.8-10.6) k/uL RBC (3.80-5.40) m/uL Hgb (11.4-16.0) gm/dL Hct (34.0-46.0) % MCV (80.0-100.0) fL MCH (25.0-35.0) pg MCHC (31.0-37.0) g/dL RDW (11.5-15.5) % Plt Count (150-450) k/uL MPV Neutrophils % % Lymphocytes % % Monocytes % % Eosinophils % % Basophils % % Neutrophils # (1.3-7.7) k/uL Lymphocytes # (1.0-4.8) k/uL Monocytes # (0-1.0) k/uL Eosinophils # (0-0.7) k/uL Basophils # (0-0.2) k/uL PT (10.0-12.5) sec INR (<1.2) APTT (22.0-30.0) sec Sodium (137-145) mmol/L Potassium (3.5-5.1) mmol/L Chloride (98-107) mmol/L Carbon Dioxide (22-30) mmol/L Anion Gap mmol/L BUN (7-17) mg/dL Creatinine (0.52-1.04) mg/dL Est GFR (CKD-EPI)AfAm (>60 ml/min/1.73 sqM) Est GFR (CKD-EPI)NonAf (>60 ml/min/1.73 sqM) Glucose (74-99) mg/dL Calcium (8.4-10.2) mg/dL Magnesium (1.6-2.3) mg/dL Total Bilirubin (0.2-1.3) mg/dL AST (14-36) U/L ALT (4-34) U/L Alkaline Phosphatase (38-126) U/L Troponin I 4.180 H* (0.000-0.034) ng/mL NT-Pro-B Natriuret Pep pg/mL Total Protein (6.3-8.2) g/dL Albumin (3.5-5.0) g/dL - EKG Data -: EKG Interpreted by Me EKG Comments: 12-lead Electrocardiogram Interpretation Note EKG was reviewed and interpreted by myself. 12-lead ECG performed at 0102 is interpreted by me as revealing sinus tachycardia with baseline artifact from motion at a rate of 108 beats per minute. [place] is normal. OR interval is 144 ms, QRS durations 82 ms, QTc is 402 ms. T wave inversions in the lateral precordial leads.. New T wave inversions in lateral precordial leads but otherwise no obvious acute finding. R wave progression across the precordium was satisfactory. 12-lead Electrocardiogram Interpretation Note EKG was reviewed and interpreted by myself. 12-lead ECG performed at 0217 is interpreted by me as revealingtachycardia at a rate of 111 beats per minute. [place] is normal. OR interval is 114 ms, QRS durations 102 ms, QTc is 418 ms. Acute T wave inversions redemonstrated but no obvious other dynamic changes at this time. EKG appears similar to EKG from earlier today. R wave progression across the precordium was satisfactory. . Disposition Clinical Impression: COPD exacerbation, Atypical chest pain, NSTEMI (non-ST elevated myocardial infarction), Leukocytosis Disposition: ADMITTED IP TO THIS HOSP Condition: Serious Time of Disposition: 03:00
[2024-01-19] MEDS: ACETAMINOPHEN TAB 325 MG TAB PO STA (02:56)
[2024-01-19] MEDS ORDERED: NALOXONE 0.4 MG/ML 1 ML VIAL IV PRN (03:01)
[2024-01-19] MEDS: PIPERACILLIN-TAZOBACTAM 3.375 GM in SODIUM CHLORIDE 0.9% 100 ML IVPB STA (03:03)
[2024-01-19] MEDS: HYDROcodone/APAP 10-325MG 1 EACH TAB PO ONE (03:03)
[2024-01-19] MEDS: FUROSEMIDE 10 MG/ML 4 ML VIAL IV STA (03:47)
[2024-01-19] MEDS ORDERED: IPRATROPIUM-ALBUTEROL 3 ML NEB INHALATION SCH (04:00)
[2024-01-19] MEDS: AZITHROMYCIN 500 MG in SODIUM CHLORIDE 0.9% 250 ML IVPB STA (04:07)
[2024-01-19] MEDS: SODIUM CHLORIDE 0.9% 1,000 ML IV SCH (04:12)
[2024-01-19] MEDS ORDERED: IPRATROPIUM-ALBUTEROL 3 ML NEB INHALATION PRN (06:22)
--- NOTE | 2024-01-19 08:18 | XR ---
EXAMINATION TYPE: XR chest 1V portable DATE OF EXAM: 01/19/2024 Comparison: 01/10/2024 and 01/18/2024 Clinical History: 73 year-old female shortness of breath Findings: Heart mildly enlarged. Relative upper lung lucencies. Interstitial density and patchy opacities in th e right and left lower lungs, worsened from 01/10/2024 Impression: COPD and patchy infiltrates, right greater than left, worsened from prior.
[2024-01-19] MEDS: IPRATROPIUM-ALBUTEROL 3 ML NEB INHALATION SCH (08:27)
[2024-01-19] MEDS: methylPREDNISolone SOD SUCCI 40 MG/ML 1 ML VIAL IV SCH ×2 (10:00→16:17)
[2024-01-19] MEDS: HEPARIN SODIUM 1,000 UN/ML (10ML VL) IV PRN (10:01)
[2024-01-19] MEDS: HYDROcodone/APAP 10-325MG 1 EACH TAB PO PRN (10:06)
--- NOTE | 2024-01-19 10:16 | P.CRDCN ---
History of Present Illness Consult date: 01/19/24 Chief complaint: Chest discomfort and shortness of breath History of present illness: The patient is a very pleasant 73-year-old female patient with a past medical history significant for smoking and chronic obstructive pulmonary disease and no cardiovascular history from before including coronary artery disease or diabetes or hypertension or dyslipidemia. She just was discharged from the hospital recently after she was admitted with a COPD exacerbation. During her hospital stay she underwent an echo and that showed normal LV systolic function. She was brought to the hospital again by her son complaining of shortness of breath and the chest discomfort started within the last 24 hours. She underwent further investigation including an EKG and that showed sinus mechanism with ST changes anteriorly concerning for severe underlying coronary artery disease. Also she underwent a blood work including troponin came in to be abnormal and consistent with acute coronary syndrome. NT proBNP came in to be elevated as well around 21,000. Her hemoglobin and kidney function and electrolytes are within normal limits with a chest x-ray showed finding consistent with COPD and possibly left pleural effusion. The patient was seen and evaluated this morning. She is having ongoing chest discomfort about 8/10 in intensity. Currently she is on heparin. She stated that the chest discomfort has came down slightly after she was started on heparin. No known history of coronary artery disease or congestive heart failure or any cardiac arrhythmia and never seen by any documentation coordinator before. She was advised to undergo a heart catheterization given the ongoing chest discomfort and abnormal blood work with abnormal troponin which is consistent with acute coronary syndrome in her case but the patient refused and she would like medical treatment only. With that being said I am going to start the patient on dual antiplatelet therapy along with a statin along with beta-kenn. She does not seems in any overt congestive heart failure at this point. Examination revealed distant heart sounds with regular rhythm and diminished breathing sounds bilaterally. No edema was noted. Assessment Acute hypoxic respiratory failure likely secondary to COPD exacerbation Evidence of myocardial injury associated with evidence of ischemia by EKG and clinically Chronic obstructive pulmonary disease Smoking and the patient is actively smoker Plan The patient is refusing to undergo coronary angiogram Consider medical treatment for the acute coronary syndrome Consider dual antiplatelet therapy along with at least intermediate intensity statin and anti-ischemic medication Obtain an echocardiogram with Doppler The patient was given Lasix earlier today. We will assess for any heart failure signs and symptoms tomorrow and the need for more diuretics Follow-up with the patient Past Medical History Past Medical History: COPD, Hypertension, Rheumatoid Arthritis (RA) Additional Past Medical History / Comment(s): Patient states she has never been told she has heart failure History of Any Multi-Drug Resistant Organisms: None Reported Past Surgical History: No Surgical Hx Reported, Section Additional Past Surgical History / Comment(s): Left foot toe Ulcerative bunion, cadaver bone in big toe 02/2023. 2016 Right leg tib-fib fracture Past Anesthesia/Blood Transfusion Reactions: No Reported Reaction Past Psychological History: No Psychological Hx Reported Smoking Status: Former smoker Past Alcohol Use History: None Reported Past Drug Use History: None Reported - Past Family History Mother Family Medical History: Diabetes Mellitus Additional Family Medical History / Comment(s): Rhumatic fever, hole in heart Medications and Allergies Home Medications Medication Instructions Recorded Confirmed Type Albuterol Sulfate [Albuterol 1 - 2 puff INHALATION RT-Q4H PRN 01/10/24 01/19/24 History Sulfate Hfa] Benzonatate [Tessalon Perles] 100 mg PO TID PRN 01/10/24 01/19/24 History Celecoxib [CeleBREX] 200 mg PO BID PRN 01/10/24 01/19/24 History HYDROcodone/APAP 10-325MG [[place] 1 tab PO Q8H PRN 01/10/24 01/19/24 History 10-325] Levocetirizine Dihydrochloride 5 mg PO HS PRN 01/10/24 01/19/24 History [Xyzal] lisinopriL [Zestril] 10 mg PO DAILY 01/10/24 01/19/24 History predniSONE 10 mg PO DIRECTED 01/10/24 01/19/24 History Amoxic-Pot Clav 875-125Mg 1 tab PO Q12HR 01/19/24 01/19/24 History [Augmentin 875-125] Mometasone/Formoterol [Dulera 200 1 puff INHALATION RT-BID 01/19/24 01/19/24 History Mcg-5 Mcg Inhaler] predniSONE See Taper PO DIRECTED 01/19/24 01/19/24 History Allergies Allergy/AdvReac Type Severity Reaction Status Date / Time No Known Allergies Allergy Verified 01/19/24 09:10 Physical Exam Vitals: Vital Signs Temp Pulse Resp BP Pulse Ox 01/19/24 10:05 94 18 100/73 98 01/19/24 08:40 92 01/19/24 08:36 94 L 01/19/24 08:27 90 01/19/24 07:48 89 18 91/65 96 01/19/24 06:30 92 19 96/65 93 L 01/19/24 06:00 104 H 14 87/62 92 L 01/19/24 05:30 90 14 85/63 92 L 01/19/24 05:00 107 H 14 85/61 93 L 01/19/24 04:00 106 H 16 94/70 92 L 01/19/24 03:10 98 20 98/73 92 L 01/19/24 01:15 112 H 01/19/24 01:10 112 H 01/19/24 00:46 99.8 F H 126 H 20 98/63 92 L Intake and Output 01/18/24 01/19/24 01/19/24 22:59 06:59 14:59 Intake Total 5.289 30.763 Balance 5.289 30.763 Intake: Intake, IV Titration 5.289 30.763 Amount Heparin Sod,Pork in 0.45% 5.289 30.763 NaCl 25,000 unit In 0.45 % NaCl 1 250ml.bag @ 12 UNITS/KG/HR 5.987 mls/hr IV .Q24H [facility] Rx#: [id number] Other: Weight 49.895 kg 49.895 kg Results 01/19/24 01:02 01/19/24 01:02 Cardiac Enzymes 01/19/24 01/19/24 Range/Units 01:02 01:02 AST 64 H (14-36) U/L Troponin I 4.180 H* (0.000-0.034) ng/mL Coagulation 01/19/24 01/19/24 Range/Units 01:02 07:19 PT 11.0 (10.0-12.5) sec APTT 101.4 H* 31.4 H (22.0-30.0) sec CBC 01/19/24 Range/Units 01:02 WBC 22.9 H (3.8-10.6) k/uL RBC 4.31 (3.80-5.40) m/uL Hgb 13.8 (11.4-16.0) gm/dL Hct 41.3 (34.0-46.0) % Plt Count 358 (150-450) k/uL Comprehensive Metabolic Panel 01/19/24 Range/Units 01:02 Sodium 132 L (137-145) mmol/L Potassium 4.7 (3.5-5.1) mmol/L Chloride 100 (98-107) mmol/L Carbon Dioxide 28 (22-30) mmol/L BUN 45 H (7-17) mg/dL Creatinine 0.58 (0.52-1.04) mg/dL Glucose 169 H (74-99) mg/dL Calcium 8.7 (8.4-10.2) mg/dL AST 64 H (14-36) U/L ALT 24 (4-34) U/L Alkaline Phosphatase 121 (38-126) U/L Total Protein 5.4 L (6.3-8.2) g/dL Albumin 3.1 L (3.5-5.0) g/dL Current Medications Generic Name Dose Route Start Last Admin Trade Name Freq PRN Reason Stop Dose Admin Hydrocodone Bitart/Acetaminophen 1 each 01/19/24 03:04 01/19/24 10:06 Hydrocodone/Apap 10-325mg 1 Each Tab PO 1 each Q6HR PRN Administration Pain Albuterol/Ipratropium 3 ml 01/19/24 08:00 01/19/24 08:27 Ipratropium-Albuterol 3 Ml Neb INHALATION 3 ml RT-QID [facility] Administration Albuterol/Ipratropium 3 ml 01/19/24 06:22 Ipratropium-Albuterol 3 Ml Neb INHALATION RT-Q2H PRN Shortness Of Breath Or Wheezing Heparin Sodium (Porcine) 0 unit 01/19/24 01:01 01/19/24 10:01 Heparin Sodium 1,000 Un/Ml (10ml Vl) IV 2,495 unit PER PROTOCOL PRN Administration Low PTT Protocol Heparin Sodium/Sodium Chloride 250 mls @ 5.987 mls/hr 01/19/24 01:15 01/19/24 10:02 25,000 unit/ Sodium Chloride IV 15.01 units/kg/hr .Q24H [facility] 7.491 mls/hr Titration Protocol 12 UNITS/KG/HR Sodium Chloride 1,000 mls @ 50 mls/hr 01/19/24 03:15 01/19/24 04:12 Saline 0.9% IV 50 mls/hr .Q20H [facility] Administration Methylprednisolone Sodium Succinate 40 mg 01/19/24 09:00 01/19/24 10:00 Methylprednisolone Sod Succi 40 Mg/Ml 1 Ml Vial IV 40 mg Q12HR [facility] Administration Miscellaneous Information 1 each 01/19/24 02:37 Pneumonia Protocol Utilized 1 Each Misc PO ONCE PRN Per Protocol Naloxone HCl 0.2 mg 01/19/24 03:01 Naloxone 0.4 Mg/Ml 1 Ml Vial IV Q2M PRN Opioid Reversal Intake and Output 01/18/24 01/19/24 01/19/24 22:59 06:59 14:59 Intake Total 5.289 30.763 Balance 5.289 30.763 Intake: Intake, IV Titration 5.289 30.763 Amount Heparin Sod,Pork in 0.45% 5.289 30.763 NaCl 25,000 unit In 0.45 % NaCl 1 250ml.bag @ 12 UNITS/KG/HR 5.987 mls/hr IV .Q24H [facility] Rx#: [id number] Other: Weight 49.895 kg 49.895 kg Patient Weight 01/20/24 06:59 Weight 49.895 kg 01/19/24 01:02 01/19/24 01:02
[2024-01-19] MEDS: PIPERACILLIN-TAZOBACTAM 3.375 GM in SODIUM CHLORIDE 0.9% 100 ML IVPB SCH (12:15)
[2024-01-19] MEDS: CLOPIDOGREL 75 MG TAB PO SCH (12:16)
[2024-01-19] MEDS: ASPIRIN 81 MG PO SCH (12:16)
[2024-01-19] MEDS ORDERED: LORATADINE 10 MG TAB PO PRN (12:53)
[2024-01-19] MEDS ORDERED: BENZONATATE 100 MG CAP PO PRN (12:53)
--- NOTE | 2024-01-19 15:41 | P.CNPUL ---
History of Present Illness Consult date: 01/19/24 Requesting physician: Andre Gong Reason for consult: dyspnea, COPD, abnormal CXR/CT Chief complaint: Shortness of breath, cough, chest pain History of present illness: This is a 73-year-old female patient with a history of chronic obstructive pulmonary disease, recently requiring home oxygen following her recent admission, hypertension, toyed arthritis, chronic and ongoing tobacco dependence . She was just discharged on January 13, 2024 following a COPD exacerbation atypical chest. She did continue her Augmentin, bronchodilators and a prednisone taper. She was to follow-up in our office in 1 week. She presented here to the emergency room yesterday 01/19/2024 with complaints again of increasing shortness of breath, chest pain, cough and congestion. Chest x-ray does reveal evidence of COPD and patchy infiltrate traits, right greater than left. Increased from previous. White count 22.9. Hemoglobin 13.8. Platelets 358. Sodium 132. Potassium 4.7. Bicarb 28. BUN 45. Creatinine 0.58. Glucose 169. AST 64. ALT 24. Troponin 4.180. proBNP 21,100. Viral screen was negative. She had been initiated on a heparin drip. An echocardiogram revealed a preserved left ventricular systolic function with ejection fraction of 55% and no significant aortic valve disease. She is seen today in consultation in the emergency department. She is awake and alert in no acute distress. She is dyspneic with conversation. Dyspneic with minimal exertion. Currently maintaining O2 satura tions in the 90s on 3 L/min per nasal cannula. She is afebrile. Hemodynamically stable. The patient does appear to have cardiac injury but refused to undergo cardiac catheterization per cardiology consultation. Medical treatment will be recommended. She has also requested a DNR/DNI CODE STATUS. Review of Systems REVIEW OF SYSTEMS: CONSTITUTIONAL: Denies any recent significant weight loss or weight gain. EYES: Denies change in vision. EARS, NOSE, MOUTH, THROAT: Denies headaches, denies sore throat. CARDIOVASCULAR: Positive for chest pain, no palpitations or syncopal episodes. RESPIRATORY: Positive for shortness of breath, cough, congestion no hemoptysis. GASTROINTESTINAL: Denies change in appetite, denies abdominal pain GENITOURINARY: Denies hematuria, denies infections. MUSKULOSKELETAL: Positive for continued musculoskeletal pain, denies swelling. INTEGUMENTARY: Denies rash, denies eczema. NEUROLOGICAL: Denies recent memory loss, no recent seizure activity. PSYCHIATRIC: Denies anxiety, denies depression. HEMATOLOGIC/LYMPHATIC: Denies anemia, denies enlarged lymph nodes. Past Medical History Past Medical History: COPD, Hypertension, Rheumatoid Arthritis (RA) Additional Past Medical History / Comment(s): Patient states she has never been told she has heart failure History of Any Multi-Drug Resistant Organisms: None Reported Past Surgical History: No Surgical Hx Reported, Section Additional Past Surgical History / Comment(s): Left foot toe Ulcerative bunion, cadaver bone in big toe 02/2023. 2016 Right leg tib-fib fracture Past Anesthesia/Blood Transfusion Reactions: No Reported Reaction Past Psychological History: No Psychological Hx Reported Smoking Status: Former smoker Past Alcohol Use History: None Reported Past Drug Use History: None Reported - Past Family History Mother Family Medical History: Diabetes Mellitus Additional Family Medical History / Comment(s): Rhumatic fever, hole in heart Medications and Allergies Home Medications Medication Instructions Recorded Confirmed Type Albuterol Sulfate [Albuterol 1 - 2 puff INHALATION RT-Q4H PRN 01/10/24 01/19/24 History Sulfate Hfa] Benzonatate [Tessalon Perles] 100 mg PO TID PRN 01/10/24 01/19/24 History Celecoxib [CeleBREX] 200 mg PO BID PRN 01/10/24 01/19/24 History HYDROcodone/APAP 10-325MG [[place] 1 tab PO Q8H PRN 01/10/24 01/19/24 History 10-325] Levocetirizine Dihydrochloride 5 mg PO HS PRN 01/10/24 01/19/24 History [Xyzal] lisinopriL [Zestril] 10 mg PO DAILY 01/10/24 01/19/24 History predniSONE 10 mg PO DIRECTED 01/10/24 01/19/24 History Amoxic-Pot Clav 875-125Mg 1 tab PO Q12HR 01/19/24 01/19/24 History [Augmentin 875-125] Mometasone/Formoterol [[place] 200 1 puff INHALATION RT-BID 01/19/24 01/19/24 History Mcg-5 Mcg Inhaler] predniSONE See Taper PO DIRECTED 01/19/24 01/19/24 History Allergies Allergy/AdvReac Type Severity Reaction Status Date / Time No Known Allergies Allergy Verified 01/19/24 09:10 Physical Exam Vitals: Vital Signs Temp Pulse Resp BP Pulse Ox 01/19/24 14:34 93 24 86/61 93 L 01/19/24 12:19 92 18 110/77 95 01/19/24 10:49 92 18 102/67 98 01/19/24 10:05 94 18 100/73 98 01/19/24 08:40 92 01/19/24 08:36 94 L 01/19/24 08:27 90 01/19/24 07:48 89 18 91/65 96 01/19/24 06:30 92 19 96/65 93 L 01/19/24 06:00 104 H 14 87/62 92 L 01/19/24 05:30 90 14 85/63 92 L 01/19/24 05:00 107 H 14 85/61 93 L 01/19/24 04:00 106 H 16 94/70 92 L 01/19/24 03:10 98 20 98/73 92 L 01/19/24 01:15 112 H 01/19/24 01:10 112 H 01/19/24 00:46 99.8 F H 126 H 20 98/63 92 L Intake and Output 01/19/24 01/19/24 01/19/24 06:59 14:59 22:59 Intake Total 5.289 30.763 Output Total 0 Balance 5.289 30.763 Intake: Intake, IV Titration 5.289 30.763 Amount Heparin Sod,Pork in 0.45% 5.289 30.763 NaCl 25,000 unit In 0.45 % NaCl 1 250ml.bag @ 12 UNITS/KG/HR 5.987 mls/hr IV .Q24H [facility] Rx#: [id number] Output: Urine 0 Other: Weight 49.895 kg 49.895 kg GENERAL EXAM: Alert, pleasant, frail 73-year-old female, on 3 L nasal cannula, in no apparent distress. HEAD: Normocephalic. EYES: Normal reaction of pupils, equal size. NOSE: Clear with pink turbinates. THROAT: No erythema or exudates. NECK: No masses, no JVD. CHEST: No chest wall deformity. LUNGS: Equal air entry with crackles in the bilateral bases right greater than left. CVS: S1 and S2 normal with no audible murmur, regular rhythm. ABDOMEN: No hepatosplenomegaly, normal bowel sounds, no guarding or rigidity. SPINE: No scoliosis or deformity SKIN: No rashes ecchymosis and noted thin skin CENTRAL NERVOUS SYSTEM: No focal deficits, tone is normal in all 4 extremities. EXTREMITIES: Deformities from rheumatoid arthritis noted, there is no peripheral edema. No clubbing, no cyanosis. Peripheral pulses are intact. Results - Laboratory Findings CBC and BMP: 01/19/24 01:02 01/19/24 01:02 PT/INR, D-dimer PT 11.0 sec (10.0-12.5) 01/19/24 01:02 INR 1.0 (<1.2) 01/19/24 01:02 Abnormal lab findings: Abnormal Labs 01/19/24 01/19/24 01/19/24 01:02 01:02 01:02 WBC 22.9 H Neutrophils # 21.4 H Lymphocytes # 0.6 L APTT 101.4 H* Sodium 132 L BUN 45 H Glucose 169 H Magnesium 2.6 H AST 64 H Troponin I Total Protein 5.4 L Albumin 3.1 L 01/19/24 01/19/24 01:02 07:19 WBC Neutrophils # Lymphocytes # APTT 31.4 H Sodium BUN Glucose Magnesium AST Troponin I 4.180 H* Total Protein Albumin - Diagnostic Findings Chest x-ray: image reviewed Assessment and Plan Assessment: Chest pain in a patient found to have elevated troponins and EKG changes however declined cardiac catheterization Acute exacerbation of chronic obstructive pulmonary disease Chronic and ongoing tobacco dependence Rheumatoid arthritis History of previous pleural effusions attributed to rheumatoid arthritis with previous thoracentesis Hypertension Anorexia/cachexia syndrome Plan: The patient was seen and evaluated Chest x-ray, labs and medications reviewed Patient declines cardiac catheterization Currently on a heparin drip Initiated on IV diuretics Continued on bronchodilators and steroids Continued on Zosyn Procalcitonin pending Prognosis remains guarded DNR/DNI CODE STATUS We will continue to follow and make further recommendations based on her clinical status I have personally seen and examined the patient, performed the documentation and the assessment and plan as written. Number of minutes spent on the visit: 20.
[2024-01-19] MEDS: FUROSEMIDE 10 MG/ML 4 ML VIAL IV SCH (16:49)
[2024-01-19] MEDS ORDERED: DEXTROSE 50% SYRINGE 50 ML IVP PRN ×2 (16:56)
[2024-01-19] MEDS: INSULIN ASPART (NovoLOG) 100 UNIT/ML VIAL SQ SCH (18:39)
[2024-01-19] MEDS: SYMBICORT 160-4.5 MCG INHALER INHALATION SCH (20:02)
[2024-01-19 20:10] LABS: Glucose,Whole Blood 220 mg/dL (70-110)
[2024-01-19] MEDS: METOPROLOL SUCCINATE (ER) 25 MG TAB.ER.24H PO SCH (21:03)
--- NOTE | 2024-01-19 23:30 | HP ---
HISTORY AND PHYSICAL CHIEF COMPLAINT: Chest pain, shortness of breath, and cough. HISTORY OF PRESENT ILLNESS: This is a 73-year-old woman with a past medical history of multiple medical problems, recently admitted with COPD. The patient went home and currently, the patient has increased shortness of breath as well as some cough and chest pain in the anterior part of the chest. Troponins elevated up to 4 indicating acute [id number]-elevation myocardial infarction. Cardiology saw the patient, who recommended medical treatment. The patient also has possible pneumonia. There is no history of any fever, rigors, chills at this time. Multiple consultants are following the patient, Cardiology and Pulmonology. PAST MEDICAL HISTORY: Reviewed include COPD, history of hypertension. The rest of the history is charted. Rheumatoid arthritis. HOME MEDICATIONS: Prednisone. Rest of medication and chart is also reviewed. FAMILY HISTORY: History of diabetes mellitus type 2. SOCIAL HISTORY: Previous history of smoking. REVIEW OF SYSTEMS: Fourteen-point review is negative except as mentioned. PHYSICAL EXAMINATION: VITAL SIGNS: Pulse is 106, blood pressure 94/47, respirations 16. HEENT: Conjunctivae normal. Breathing efforts are markedly increased. Bilateral scattered rhonchi and crackles. Expiratory wheezing also present. ABDOMEN: Soft, nontender. LEGS: No edema. No swelling. SKIN: No ulcer, rash, bleeding. JOINTS: No active deforming arthropathy. LABORATORY DATA: WBC 22.9. Rest of the labs are noted. ASSESSMENT: 1. Chest pain, possible acute [id number] elevation myocardial infarction with troponin 4.180. 2. Chronic obstructive pulmonary disease exacerbation with possible bibasilar pneumonia, right more than the left. 3. Rule out congestive heart failure, acute exacerbation. 4. Elevated WBC. 5. Hypertension. 6. History of rheumatoid arthritis. 7. . RECOMMENDATIONS AND DISCUSSION: This is a 73-year-old woman, who presented with multiple complex medical issues. We will monitor the patient closely in telemetry. Continue with IV heparin. Closely with Cardiology, Pulmonology. I would recommend bronchodilators and a course of IV steroids and also empiric antibiotics. Infectious Disease will be consulted and also a procalcitonin also will be checked. Cultures including blood and sputum will be noted. Overall prognosis is extremely guarded because of multiple complex medical issues. Further recommendations to follow. MMODL / IJN: [id number] /
[2024-01-20 06:15] LABS: Glucose,Whole Blood 169 mg/dL (70-110)
[2024-01-20] MEDS: PANTOPRAZOLE 40 MG TABLET PO SCH (06:19)
[2024-01-20 06:59] LABS: INR 0.9 (<1.2); Prothrombin Time 9.8 sec (10.0-12.5)
[2024-01-20 07:15] LABS: ALT 22 U/L (4-34); AST 42 U/L (14-36); African American GFR (CKD) >90 (>60 ml/min/1.73 sqM); Albumin 2.6 g/dL (3.5-5.0); Alkaline Phosphatase 104 U/L (38-126); Anion Gap 2 mmol/L; Blood Urea Nitrogen 26 mg/dL (7-17); Calcium 8.2 mg/dL (8.4-10.2); Carbon Dioxide 25 mmol/L (22-30); Chloride 106 mmol/L (98-107); Glucose 158 mg/dL (74-99); Non-African American GFR(CKD) >90 (>60 ml/min/1.73 sqM); Potassium 4.5 mmol/L (3.5-5.1); Sodium 133 mmol/L (137-145); Total Bilirubin 0.8 mg/dL (0.2-1.3); Total Protein 4.8 g/dL (6.3-8.2)
[2024-01-20 07:30] LABS: HCT 38.2 % (34.0-46.0); HGB 12.3 gm/dL (11.4-16.0); MCH 31.3 pg (25.0-35.0); MCHC 32.1 g/dL (31.0-37.0); MCV 97.5 fL (80.0-100.0); Mean Platelet Volume 7.9; Platelet Count 383 k/uL (150-450); RBC 3.92 m/uL (3.80-5.40); RDW 14.7 % (11.5-15.5); WBC 21.4 k/uL (3.8-10.6)
[2024-01-20] MEDS: lisinopriL 10 MG TAB PO SCH (08:39)
[2024-01-20] MEDS: ATORVASTATIN 40 MG TAB PO SCH (08:39)
--- NOTE | 2024-01-20 08:57 | XR ---
EXAMINATION TYPE: XR chest 1V portable DATE OF EXAM: 01/20/2024 Comparison: 01/19/2024 Clinical History: 73-year-old female pneumonia Findings: Heart mildly enlarged. Patchy opacities throughout the right lung has slightly increased. Left midlun g patchy opacities are similar. Background emphysema. Degenerative change right shoulder. Impression: COPD with superimposed patchy opacities, right greater than left. Slight worsening on the right now.
[2024-01-20 11:17] LABS: Glucose,Whole Blood 127 mg/dL (70-110)
[2024-01-20 12:59] LABS: Band Neutrophils % 1 %; Lymphocytes # (M) 0.21 k/uL (1.0-4.8); Monocytes # (M) 0.43 k/uL (0-1.0); Neutrophils % (M) 96 %; Nucleated Red Blood Cells 0 /100 WBC (0-0); RBC Morphology Normal; Total Cells Counted 100
--- NOTE | 2024-01-20 14:15 | P.PN ---
Subjective Progress Note Date: 01/20/24 Chief complaint: Chest discomfort and shortness of breath History of present illness: The patient is a very pleasant 73-year-old female patient with a past medical history significant for smoking and chronic obstructive pulmonary disease and no cardiovascular history from before including coronary artery disease or diabetes or hypertension or dyslipidemia. She just was discharged from the hospital recently after she was admitted with a COPD exacerbation. During her hospital stay she underwent an echo and that showed normal LV systolic function. She was brought to the hospital again by her son complaining of shortness of breath and the chest discomfort started within the last 24 hours. She underwent further investigation including an EKG and that showed sinus mechanism with ST changes anteriorly concerning for severe underlying coronary artery disease. Also she underwent a blood work including troponin came in to be abnormal and consistent with acute coronary syndrome. NT proBNP came in to be elevated as well around 21,000. Her hemoglobin and kidney function and electrolytes are within normal limits with a chest x-ray showed finding consistent with COPD and possibly left pleural effusion. The patient was seen and evaluated this morning. She is having ongoing chest discomfort about 8/10 in intensity. Currently she is on heparin. She stated that the chest discomfort has came down slightly after she was started on heparin. No known history of coronary artery disease or congestive heart failure or any cardiac arrhythmia and never seen by any fire loss prevention engineer before. She was advised to undergo a heart catheterization given the ongoing chest discomfort and abnormal blood work with abnormal troponin which is consistent with acute coronary syndrome in her case but the patient refused and she would like medical treatment only. With that being said I am going to start the patient on dual antiplatelet therapy along with a statin along with beta-kenn. She does not seems in any overt congestive heart failure at this point. Examination revealed distant heart sounds with regular rhythm and diminished breathing sounds bilaterally. No edema was noted. 01/19 Patient states that she does have chest pain with movement but is fine when she is laying down. She was up in a chair for about an hour and felt very anxious a nd had pain. She feels the pain is about the same as when she came in to the hospital. Discussed results of the testing and recommendations for cardiac catheterization but patient is very adamant that she only wants to try medications at this time. She is on a heparin drip. Echocardiogram has been obtained and report is pending. Physical Examination Gen: This is a 73-year-old female in no acute distress. HEENT: Head is atraumatic, normocephalic. Pupils equal, round. Sclerae is anicteric. NECK: Supple. No JVD. No lymphadenopathy. No thyromegaly. LUNGS: Clear to auscultation. No wheezes or rhonchi. No intercostal retractions. HEART: Regular rate and rhythm. No murmur. ABDOMEN: Soft. Bowel sounds are present. No masses. No tenderness. EXTREMITIES: No pedal edema. No calf tenderness. NEUROLOGICAL: Patient is awake, alert and oriented x3. Assessment Acute hypoxic respiratory failure likely secondary to COPD exacerbation Non-ST elevated myocardial infarction Chronic obstructive pulmonary disease Smoking and the patient is actively smoker Plan The patient is refusing to undergo coronary angiogram Continue medical management for the acute coronary syndrome Consider dual antiplatelet therapy along with at least intermediate intensity statin and anti-ischemic medication Continue heparin drip for another 24 hours Obtain 2D echocardiogram report Continue current cardiac medications: Aspirin 81 mg daily, atorvastatin 40 mg daily, Plavix 75 mg daily, lisinopril 10 mg daily, Toprol-XL 25 mg twice daily Follow-up with the patient Nurse practitioner note has been reviewed, I agree with documented findings and plan of care. Patient was seen and examined. Objective - Vital Signs Vital signs: Vital Signs Temp 97.9 F 01/20/24 11:24 Pulse 78 01/20/24 12:12 Resp 18 01/20/24 11:24 BP 95/61 01/20/24 11:24 Pulse Ox 95 01/20/24 11:45 FiO2 Intake & Output 01/19/24 01/20/24 01/20/24 18:59 06:59 18:59 Intake Total 218.812 470.657 Output Total 0 250 700 Balance 218.812 -250 -229.343 Weight 49.895 kg Intake: IV 5 Invasive Line 2 5 Intake, IV Titration 93.812 120.657 Amount Heparin Sod,Pork in 0.45% 93.812 120.657 NaCl 25,000 unit In 0.45 % NaCl 1 250ml.bag @ 12 UNITS/KG/HR 5.987 mls/hr IV .Q24H [facility] Rx#: [id number] Oral 120 350 Output: Urine 0 250 700 Other: Voiding Method External Catheter External Catheter External Catheter - Labs CBC & Chem 7: 01/20/24 06:38 04/22/24 06:38 Labs: Abnormal Lab Results - Last 24 Hours (Table) 01/19/24 01/19/24 01/19/24 Range/Units 16:00 16:00 16:00 WBC (3.8-10.6) k/uL Neutrophils # (Manual) (1.3-7.7) k/uL Lymphocytes # (Manual) (1.0-4.8) k/uL PT (10.0-12.5) sec APTT 42.1 H (22.0-30.0) sec Sodium (137-145) mmol/L BUN (7-17) mg/dL Creatinine (0.52-1.04) mg/dL Glucose (74-99) mg/dL POC Glucose (mg/dL) (70-110) mg/dL Calcium (8.4-10.2) mg/dL AST (14-36) U/L Troponin I 1.900 H* (0.000-0.034) ng/mL Total Protein (6.3-8.2) g/dL Albumin (3.5-5.0) g/dL Procalcitonin 0.62 H (0.02-0.09) ng/mL 01/19/24 01/19/24 01/20/24 Range/Units 20:08 21:14 00:21 WBC (3.8-10.6) k/uL Neutrophils # (Manual) (1.3-7.7) k/uL Lymphocytes # (Manual) (1.0-4.8) k/uL PT (10.0-12.5) sec APTT 44.8 H (22.0-30.0) sec Sodium (137-145) mmol/L BUN (7-17) mg/dL Creatinine (0.52-1.04) mg/dL Glucose (74-99) mg/dL POC Glucose (mg/dL) 220 H (70-110) mg/dL Calcium (8.4-10.2) mg/dL AST (14-36) U/L Troponin I 1.500 H* (0.000-0.034) ng/mL Total Protein (6.3-8.2) g/dL Albumin (3.5-5.0) g/dL Procalcitonin (0.02-0.09) ng/mL 01/20/24 01/20/24 01/20/24 Range/Units 06:14 06:38 06:38 WBC (3.8-10.6) k/uL Neutrophils # (Manual) (1.3-7.7) k/uL Lymphocytes # (Manual) (1.0-4.8) k/uL PT 9.8 L (10.0-12.5) sec APTT (22.0-30.0) sec Sodium 133 L (137-145) mmol/L BUN 26 H (7-17) mg/dL Creatinine 0.46 L (0.52-1.04) mg/dL Glucose 158 H (74-99) mg/dL POC Glucose (mg/dL) 169 H (70-110) mg/dL Calcium 8.2 L (8.4-10.2) mg/dL AST 42 H (14-36) U/L Troponin I (0.000-0.034) ng/mL Total Protein 4.8 L (6.3-8.2) g/dL Albumin 2.6 L (3.5-5.0) g/dL Procalcitonin (0.02-0.09) ng/mL 01/20/24 01/20/24 01/20/24 Range/Units 06:38 06:38 11:16 WBC 21.4 H (3.8-10.6) k/uL Neutrophils # (Manual) 20.70 H (1.3-7.7) k/uL Lymphocytes # (Manual) 0.21 L (1.0-4.8) k/uL PT (10.0-12.5) sec APTT 48.9 H (22.0-30.0) sec Sodium (137-145) mmol/L BUN (7-17) mg/dL Creatinine (0.52-1.04) mg/dL Glucose (74-99) mg/dL POC Glucose (mg/dL) 127 H (70-110) mg/dL Calcium (8.4-10.2) mg/dL AST (14-36) U/L Troponin I (0.000-0.034) ng/mL Total Protein (6.3-8.2) g/dL Albumin (3.5-5.0) g/dL Procalcitonin (0.02-0.09) ng/mL Microbiology - Last 24 Hours (Table) 01/19/24 02:10 Blood Culture - Preliminary Blood 01/19/24 01:55 Blood Culture - Preliminary Blood
--- NOTE | 2024-01-20 14:44 | P.PN ---
Subjective Progress Note Date: 01/20/24 Principal diagnosis: Myocardial infarction. This is a 73-year-old female patient with a history of chronic obstructive pulmonary disease, recently requiring home oxygen following her recent admission, hypertension, toyed arthritis, chronic and ongoing tobacco dependence. She was just discharged on January 13, 2024 following a COPD exacerbation atypical chest. She did continue her Augmentin, bronchodilators and a prednisone taper. She was to follow-up in our office in 1 week. She presented here to the emergency room yesterday 01/19/2024 with complaints again of increasing shortness of breath, chest pain, cough and congestion. Chest x- ray does reveal evidence of COPD and patchy infiltrate traits, right greater than left. Increased from previous. White count 22.9. Hemoglobin 13.8. Platelets 358. Sodium 132. Potassium 4.7. Bicarb 28. BUN 45. Creatinine 0.58. Glucose 169. AST 64. ALT 24. Troponin 4.180. proBNP 21,100. Viral screen was negative. She had been initiated on a heparin drip. An echocardiogram revealed a preserved left ventricular systolic function with ejection fraction of 55% and no significant aortic valve disease. She is seen today in consultation in the emergency department. She is awake and alert in no acute distress. She is dyspneic with conversation. Dyspneic with minimal exertion. Currently maintaining O2 saturations in the 90s on 3 L/min per nasal cannula. She is afebrile. Hemodynamically stable. The patient does appear to have cardiac injury but refused to undergo cardiac catheterization per cardiology consultation. Medical treatment will be recommended. She has also requested a DNR/DNI CODE STATUS. Progress note dated January 20, 2024. The patient is seen today in room 380. Currently, the patient is on O2 at 4 L by nasal cannula. She is receiving IV heparin, and saline at 20 cc an hour. Her procalcitonin level was 0.62. She continues on Zosyn. Her labs include a white count 21.4, hemoglobin 12.3, hematocrit 38.2, and a platelet count of 383,000. The patient's PTT was 48.9. Sodium 133, potassium 4.5, chlorides 106, CO2 25, BUN 26, creatinine 0.46. The glucose is 158. Calcium 8.2. Blood cu ltures are showing no growth. Chest x-ray shows some bilateral opacities, right greater than left, on top of changes of COPD. Objective - Vital Signs Vital signs: Vital Signs Temp 97.9 F 01/20/24 11:24 Pulse 78 01/20/24 12:12 Resp 18 01/20/24 11:24 BP 95/61 01/20/24 11:24 Pulse Ox 95 01/20/24 11:45 FiO2 Intake & Output 01/19/24 01/20/24 01/20/24 18:59 06:59 18:59 Intake Total 218.812 470.657 Output Total 0 250 700 Balance 218.812 -250 -229.343 Weight 49.895 kg Intake: IV 5 Invasive Line 2 5 Intake, IV Titration 93.812 120.657 Amount Heparin Sod,Pork in 0.45% 93.812 120.657 NaCl 25,000 unit In 0.45 % NaCl 1 250ml.bag @ 12 UNITS/KG/HR 5.987 mls/hr IV .Q24H [facility] Rx#: [id number] Oral 120 350 Output: Urine 0 250 700 Other: Voiding Method External Catheter External Catheter External Catheter - Exam No acute distress, oriented 3. No acute distress. Currently on 4 L by nasal cannula. HEENT examination is grossly unremarkable. Mucous membranes are moist. No oral lesions. Neck supple. Full range of motion. No adenopathy thyromegaly or neck vein distention. Cardiovascular examination reveals regular rhythm rate. S1-S2 normal. No S3 or S4. No discernible murmur noted. Lungs reveal rhonchi and crackles. Breath sounds equal. Saturations are in the mid 90s. Abdomen soft bowel sounds are heard. No masses or tenderness. Extremities are intact. No cyanosis clubbing or edema. Skin is without rash or lesion. Neurologic examination is brief but nonfocal. - Labs CBC & Chem 7: 01/20/24 06:38 01/20/24 06:38 Labs: Abnormal Lab Results - Last 24 Hours (Table) 01/19/24 01/19/24 01/19/24 Range/Units 16:00 16:00 16:00 WBC (3.8-10.6) k/uL Neutrophils # (Manual) (1.3-7.7) k/uL Lymphocytes # (Manual) (1.0-4.8) k/uL PT (10.0-12.5) sec APTT 42.1 H (22.0-30.0) sec Sodium (137-145) mmol/L BUN (7-17) mg/dL Creatinine (0.52-1.04) mg/dL Glucose (74-99) mg/dL POC Glucose (mg/dL) (70-110) mg/dL Calcium (8.4-10.2) mg/dL AST (14-36) U/L Troponin I 1.900 H* (0.000-0.034) ng/mL Total Protein (6.3-8.2) g/dL Albumin (3.5-5.0) g/dL Procalcitonin 0.62 H (0.02-0.09) ng/mL 01/19/24 01/19/24 01/20/24 Range/Units 20:08 21:14 00:21 WBC (3.8-10.6) k/uL Neutrophils # (Manual) (1.3-7.7) k/uL Lymphocytes # (Manual) (1.0-4.8) k/uL PT (10.0-12.5) sec APTT 44.8 H (22.0-30.0) sec Sodium (137-145) mmol/L BUN (7-17) mg/dL Creatinine (0.52-1.04) mg/dL Glucose (74-99) mg/dL POC Glucose (mg/dL) 220 H (70-110) mg/dL Calcium (8.4-10.2) mg/dL AST (14-36) U/L Troponin I 1.500 H* (0.000-0.034) ng/mL Total Protein (6.3-8.2) g/dL Albumin (3.5-5.0) g/dL Procalcitonin (0.02-0.09) ng/mL 01/20/24 01/20/24 01/20/24 Range/Units 06:14 06:38 06:38 WBC (3.8-10.6) k/uL Neutrophils # (Manual) (1.3-7.7) k/uL Lymphocytes # (Manual) (1.0-4.8) k/uL PT 9.8 L (10.0-12.5) sec APTT (22.0-30.0) sec Sodium 133 L (137-145) mmol/L BUN 26 H (7-17) mg/dL Creatinine 0.46 L (0.52-1.04) mg/dL Glucose 158 H (74-99) mg/dL POC Glucose (mg/dL) 169 H (70-110) mg/dL Calcium 8.2 L (8.4-10.2) mg/dL AST 42 H (14-36) U/L Troponin I (0.000-0.034) ng/mL Total Protein 4.8 L (6.3-8.2) g/dL Albumin 2.6 L (3.5-5.0) g/dL Procalcitonin (0.02-0.09) ng/mL 01/20/24 01/20/24 01/20/24 Range/Units 06:38 06:38 11:16 WBC 21.4 H (3.8-10.6) k/uL Neutrophils # (Manual) 20.70 H (1.3-7.7) k/uL Lymphocytes # (Manual) 0.21 L (1.0-4.8) k/uL PT (10.0-12.5) sec APTT 48.9 H (22.0-30.0) sec Sodium (137-145) mmol/L BUN (7-17) mg/dL Creatinine (0.52-1.04) mg/dL Glucose (74-99) mg/dL POC Glucose (mg/dL) 127 H (70-110) mg/dL Calcium (8.4-10.2) mg/dL AST (14-36) U/L Troponin I (0.000-0.034) ng/mL Total Protein (6.3-8.2) g/dL Albumin (3.5-5.0) g/dL Procalcitonin (0.02-0.09) ng/mL Microbiology - Last 24 Hours (Table) 01/19/24 02:10 Blood Culture - Preliminary Blood 01/19/24 01:55 Blood Culture - Preliminary Blood Assessment and Plan Assessment: Chest pain in a patient found to have elevated troponins and EKG changes. Acute exacerbation of chronic obstructive pulmonary disease. Chronic and ongoing tobacco dependence. Rheumatoid arthritis. History of previous pleural effusions attributed to rheumatoid arthritis with previous thoracentesis. Hypertension. Anorexia/cachexia syndrome. Plan: Plan dated January 20, 2024. The patient is seen today in room 380. The patient declined cardiac catheterization. She continues on 4 L by nasal cannula, saline at 20 cc an hour, IV heparin, and Zosyn. Chest x-ray does show some patchy bilateral infiltrates. Procalcitonin level was 0.62. Labs, x-rays, and medications are reviewed. We will continue to follow the patient, and make recommendations along the way. Prognosis is currently guarded. The patient is a DO NOT RESUSCITATE/DO NOT INTUBATE patient. Time with Patient: Less than 30
[2024-01-20 16:07] LABS: Glucose,Whole Blood 196 mg/dL (70-110)
--- NOTE | 2024-01-20 19:26 | CA ---
Transthoracic Echo Report Name: Susana Chen Age: 73 Gender: F : 1950 Exam Date: 01/20/2024 08:22 Exam Location: [place] [facility] Ht (in): 60 Wt (lb): 110 Ordering Physician: Partha Eller MD ([id number]) Attending/Referring Phys: Rejoiner Carole Rosales RCS Procedure CPT: Indications: Chest pain, + trop Cardiac Hx: Technical Quality: Technically difficult study Contrast 1: Total Dose (mL): Contrast 2: Total Dose (mL): MEASUREMENTS (Male / Female) Normal Values 2D ECHO LV Diastolic Diameter PLAX 5.2 cm 4.2 - 5.9 / 3.9 - 5.3 cm LV Systolic Diameter PLAX 3.9 cm IVS Diastolic Thickness 1.0 cm 0.6 - 1.0 / 0.6 - 0.9 cm LVPW Diastolic Thickness 1.0 cm 0.6 - 1.0 / 0.6 - 0.9 cm LV Relative Wall Thickness 0.4 DOPPLER TR Peak Velocity 282.6 cm/s TR Peak Gradient 31.9 mmHg FINDINGS Left Ventricle Left ventricular ejection fraction is estimated at 25-30 %. Mildly increased septal wall thickness. Mildly increased posterior wall thickness. Mild left ventricular dilatation. Akinetic apex, mid inferolateral and anterlateral morales. Right Ventricle Mild right ventricular dilation by visual with normal function. Unable to estimate right ventricular systolic function. Right Atrium Right atrial dilatation by visual. Left Atrium Left atrial dilation by visual. Mitral Valve Structurally normal mitral valve. No evidence for mitral valve prolapse. Mild mitral regurgitation. Aortic Valve Trileaflet aortic valve. No aortic stenosis. Trace aortic regurgitation. Tricuspid Valve Structurally normal tricuspid valve. No tricuspid stenosis. Trace tricuspid regurgitation. Pulmonic Valve Pulmonic valve not well visualized. Pericardium No pericardial effusion. Aorta Aortic root and proximal ascending aorta not well visualized. CONCLUSIONS Severe LV dysfunction with a large anterior apical septal and lateral infarct Biatrial enlargement Previewed by: Dr. Mike Donnelly MD (Electronically Signed) Final Date: 20 January 2024 19:25
[2024-01-20 20:19] LABS: Glucose,Whole Blood 174 mg/dL (70-110)
--- NOTE | 2024-01-20 23:14 | P.CONS ---
History of Present Illness - Reason for Consult Consult date: 01/20/24 - History of Present Illness Patient is a 73-year-old female with a past medical history significant for COPD hypertension rheumatoid arthritis and heart failure presenting to [facility] ER for evaluation of increasing shortness of breath chest pain cough and congestion patient symptom has been going on for few days before presentation to the hospital patient denies having any headache or URI symptoms has been complaining of chest pain mostly sharp moderate intensity with associated shortness of breath patient also have a cough which has been mild intensity and mostly dry in nature not bring up any sputum denies any nausea no vomiting no choking on food no abdominal pain or diarrhea on presentation to the hospital patient did have a low-grade fever of 99.8 degrees on right no fever have recorded subsequently patient was tachycardic and hypotensive as well as hypoxic currently on 4 L nasal cannula oxygen patient did have a white count of 22.9 with a left shift creatinine has been normal liver enzymes normal procalcitonin 0.62 influenza RSV COVID testing negative urine for Legionella antigen was negative patient did have a chest x-ray patchy opacities in the right and left lower lung with concern for pneumonia possible gram- negative patient has been treated with Zosyn infectious disease was consulted for further management of antibiotic therapy Past Medical History Past Medical History: Heart Failure, COPD, Hypertension, Rheumatoid Arthritis ( RA) Additional Past Medical History / Comment(s): Patient states she has never been told she has heart failure History of Any Multi-Drug Resistant Organisms: None Reported Past Surgical History: No Surgical Hx Reported Additional Past Surgical History / Comment(s): Left foot toe Ulcerative bunion, cadaver bone in big toe 02/2023. 2016 Right leg tib-fib fracture Past Anesthesia/Blood Transfusion Reactions: No Reported Reaction Past Psychological History: No Psychological Hx Reported Smoking Status: Current every day smoker Past Alcohol Use History: None Reported Past Drug Use History: None Reported - Past Family History Mother Family Medical History: Diabetes Mellitus Additional Family Medical History / Comment(s): Rhumatic fever, hole in heart Medications and Allergies Home Medications Medication Instructions Recorded Confirmed Type Albuterol Sulfate [Albuterol 1 - 2 puff INHALATION RT-Q4H PRN 01/10/24 01/19/24 History Sulfate Hfa] Benzonatate [Tessalon Perles] 100 mg PO TID PRN 01/10/24 01/19/24 History Celecoxib [CeleBREX] 200 mg PO BID PRN 01/10/24 01/19/24 History HYDROcodone/APAP 10-325MG [[place] 1 tab PO Q8H PRN 01/10/24 01/19/24 History 10-325] Levocetirizine Dihydrochloride 5 mg PO HS PRN 01/10/24 01/19/24 History [Xyzal] lisinopriL [Zestril] 10 mg PO DAILY 01/10/24 01/19/24 History predniSONE 10 mg PO DIRECTED 01/10/24 01/19/24 History Amoxic-Pot Clav 875-125Mg 1 tab PO Q12HR 01/19/24 01/19/24 History [Augmentin 875-125] Mometasone/Formoterol [Dulera 200 1 puff INHALATION RT-BID 01/19/24 01/19/24 History Mcg-5 Mcg Inhaler] predniSONE See Taper PO DIRECTED 01/19/24 01/19/24 History Allergies Allergy/AdvReac Type Severity Reaction Status Date / Time No Known Allergies Allergy Verified 01/19/24 09:10 Physical Exam Vitals: Vital Signs Temp Pulse Pulse Resp BP BP Pulse Ox 01/20/24 09:31 78 01/20/24 09:24 75 98 01/20/24 08:00 97.9 F 85 20 115/77 93 L 01/20/24 04:00 97.6 F 84 18 99/64 94 L 01/20/24 01:13 91 20 01/19/24 23:33 97.9 F 91 20 97/67 94 L 01/19/24 20:15 99 01/19/24 20:04 96 01/19/24 20:00 98.1 F 91 20 104/68 95 01/19/24 18:50 98.0 F 96 22 109/71 92 L 01/19/24 16:11 98.5 F 95 22 90/61 92 L 01/19/24 15:55 92 01/19/24 15:43 89 01/19/24 14:34 93 24 86/61 93 L 01/19/24 12:19 92 18 110/77 95 01/19/24 10:49 92 18 102/67 98 Intake and Output 01/19/24 01/20/24 01/20/24 22:59 06:59 14:59 Intake Total 188.049 230.657 Output Total 150 100 Balance 38.049 -100 230.657 Intake: IV 5 Invasive Line 2 5 Intake, IV Titration 63.049 120.657 Amount Heparin Sod,Pork in 0.45% 63.049 120.657 NaCl 25,000 unit In 0.45 % NaCl 1 250ml.bag @ 12 UNITS/KG/HR 5.987 mls/hr IV .Q24H [facility] Rx#: [id number] Oral 120 110 Output: Urine 150 100 Other: Voiding Method External Catheter External Catheter External Catheter Results CBC & Chem 7: 01/20/24 06:38 01/20/24 06:38 Labs: Abnormal Lab Results - Last 24 Hours (Table) 01/19/24 01/19/24 01/19/24 Range/Units 16:00 16:00 16:00 WBC (3.8-10.6) k/uL PT (10.0-12.5) sec APTT 42.1 H (22.0-30.0) sec Sodium (137-145) mmol/L BUN (7-17) mg/dL Creatinine (0.52-1.04) mg/dL Glucose (74-99) mg/dL POC Glucose (mg/dL) (70-110) mg/dL Calcium (8.4-10.2) mg/dL AST (14-36) U/L Troponin I 1.900 H* (0.000-0.034) ng/mL Total Protein (6.3-8.2) g/dL Albumin (3.5-5.0) g/dL Procalcitonin 0.62 H (0.02-0.09) ng/mL 01/19/24 01/19/24 01/20/24 Range/Units 20:08 21:14 00:21 WBC (3.8-10.6) k/uL PT (10.0-12.5) sec APTT 44.8 H (22.0-30.0) sec Sodium (137-145) mmol/L BUN (7-17) mg/dL Creatinine (0.52-1.04) mg/dL Glucose (74-99) mg/dL POC Glucose (mg/dL) 220 H (70-110) mg/dL Calcium (8.4-10.2) mg/dL AST (14-36) U/L Troponin I 1.500 H* (0.000-0.034) ng/mL Total Protein (6.3-8.2) g/dL Albumin (3.5-5.0) g/dL Procalcitonin (0.02-0.09) ng/mL 01/20/24 01/20/24 01/20/24 Range/Units 06:14 06:38 06:38 WBC (3.8-10.6) k/uL PT 9.8 L (10.0-12.5) sec APTT (22.0-30.0) sec Sodium 133 L (137-145) mmol/L BUN 26 H (7-17) mg/dL Creatinine 0.46 L (0.52-1.04) mg/dL Glucose 158 H (74-99) mg/dL POC Glucose (mg/dL) 169 H (70-110) mg/dL Calcium 8.2 L (8.4-10.2) mg/dL AST 42 H (14-36) U/L Troponin I (0.000-0.034) ng/mL Total Protein 4.8 L (6.3-8.2) g/dL Albumin 2.6 L (3.5-5.0) g/dL Procalcitonin (0.02-0.09) ng/mL 01/20/24 01/20/24 Range/Units 06:38 06:38 WBC 21.4 H (3.8-10.6) k/uL PT (10.0-12.5) sec APTT 48.9 H (22.0-30.0) sec Sodium (137-145) mmol/L BUN (7-17) mg/dL Creatinine (0.52-1.04) mg/dL Glucose (74-99) mg/dL POC Glucose (mg/dL) (70-110) mg/dL Calcium (8.4-10.2) mg/dL AST (14-36) U/L Troponin I (0.000-0.034) ng/mL Total Protein (6.3-8.2) g/dL Albumin (3.5-5.0) g/dL Procalcitonin (0.02-0.09) ng/mL Assessment and Plan Plan: 1patient presented to hospital with increasing shortness of breath which is likely multifactorial in this patient will to have a cough elevated white count mildly elevated procalcitonin with the opacities in the right upper and left lower lobe concerning for pneumonia with question of possible gram-negative questionable aspiration 2try to obtain a sputum for Gram stain and culture 3Zosyn 3.375 g every 8 hours for adequate empiric antibiotic coverage while waiting for the culture to finalize We will follow on clinical condition and cultures to further adjust medication if needed Thank you for this consultation we will follow the patient along with you Dictation was produced using [employer] dictation software. please excuse any grammatical, word or spelling errors. Time with Patient: Greater than 30
[2024-01-21 06:15] LABS: Glucose,Whole Blood 136 mg/dL (70-110)
--- NOTE | 2024-01-21 10:09 | P.PN ---
Subjective Progress Note Date: 01/20/24 Patient is a 73-year-old female with a past medical history of COPD and recent admission due to exacerbation presents to ER with complaints of worsening shortness of breath, cough and unable to bring out any sputum. Patient was also having left retrosternal chest pain with elevated troponin level, non-ST elevated DE. Patient is being treated for possible pneumonia. 01/20/2024 Patient is currently sitting in the chair. Awake alert and oriented x 3. Still having shortness of breath and exertional dyspnea. Afebrile. No nausea or vomiting. Denied any complaints of chest pain. Cough without any sputum production. Chest x-ray showed COPD with superimposed patchy opacities right greater than left. Slight worsening on the right now. Patient is maintained on Lasix 40 mg IV daily and also on heparin drip. Continued on DuoNebs and IV Solu-Medrol 40 IV every 8 hourly. Patient is also on antibiotics in the home of [facility]. Laboratory test showed WBC 21.4 hemoglobin 12.3 and platelets 383 Sodium 133 potassium 4.5 chloride 106 bicarb is 25 BUN 26 and creatinine 0.46 and blood sugar 158 Calcium 8.2 total bili 0.8 AST 42 ALT 22 and alk phos 104 and albumin 2.6. Pulmonary and cardiology is on board. Objective - Vital Signs Vital signs: Vital Signs Temp 97.9 F 01/20/24 08:00 Pulse 78 01/20/24 09:31 Resp 20 01/20/24 08:00 BP 115/77 01/20/24 08:00 Pulse Ox 98 01/20/24 09:24 FiO2 Intake & Output 01/19/24 01/20/24 01/20/24 18:59 06:59 18:59 Intake Total 218.812 230.657 Output Total 0 250 Balance 218.812 -250 230.657 Weight 49.895 kg Intake: IV 5 Invasive Line 2 5 Intake, IV Titration 93.812 120.657 Amount Heparin Sod,Pork in 0.45% 93.812 120.657 NaCl 25,000 unit In 0.45 % NaCl 1 250ml.bag @ 12 UNITS/KG/HR 5.987 mls/hr IV .Q24H [facility] Rx#: [id number] Oral 120 110 Output: Urine 0 250 Other: Voiding Method External Catheter External Catheter External Catheter - Exam PHYSICAL EXAMINATION: Patient is lying in the bed comfortably, no acute distress, awake alert and oriented.. HEENT: Normocephalic. Neck is supple. Pupils reactive. Nostrils clear. Oral cavity is moist. Neck reveals no JVD, carotid bruits, or thyromegaly. CHEST EXAMINATION: Trachea is central. Symmetrical expansion. Bilateral prolonged expiration and diminished sounds.. CARDIAC: Normal S1, S2 with no gallops. No murmurs ABDOMEN: Soft. Bowel sounds normal. No organomegaly. No abdominal bruits. Extremities: reveal no edema. No clubbing or cyanosis Neurologically awake, alert, oriented x3 with well-coordinated movements. No focal deficits noted Skin: No rash or skin lesions. Psychiatric: Coperative. Nonsuicidal Musculoskeletal: No joint swelling or deformity. Normal range of motion. - Labs CBC & Chem 7: 01/20/24 06:38 01/20/24 06:38 Labs: Abnormal Lab Results - Last 24 Hours (Table) 01/19/24 01/19/24 01/19/24 Range/Units 16:00 16:00 16:00 WBC (3.8-10.6) k/uL PT (10.0-12.5) sec APTT 42.1 H (22.0-30.0) sec Sodium (137-145) mmol/L BUN (7-17) mg/dL Creatinine (0.52-1.04) mg/dL Glucose (74-99) mg/dL POC Glucose (mg/dL) (70-110) mg/dL Calcium (8.4-10.2) mg/dL AST (14-36) U/L Troponin I 1.900 H* (0.000-0.034) ng/mL Total Protein (6.3-8.2) g/dL Albumin (3.5-5.0) g/dL Procalcitonin 0.62 H (0.02-0.09) ng/mL 01/19/24 01/19/24 01/20/24 Range/Units 20:08 21:14 00:21 WBC (3.8-10.6) k/uL PT (10.0-12.5) sec APTT 44.8 H (22.0-30.0) sec Sodium (137-145) mmol/L BUN (7-17) mg/dL Creatinine (0.52-1.04) mg/dL Glucose (74-99) mg/dL POC Glucose (mg/dL) 220 H (70-110) mg/dL Calcium (8.4-10.2) mg/dL AST (14-36) U/L Troponin I 1.500 H* (0.000-0.034) ng/mL Total Protein (6.3-8.2) g/dL Albumin (3.5-5.0) g/dL Procalcitonin (0.02-0.09) ng/mL 01/20/24 01/20/24 01/20/24 Range/Units 06:14 06:38 06:38 WBC (3.8-10.6) k/uL PT 9.8 L (10.0-12.5) sec APTT (22.0-30.0) sec Sodium 133 L (137-145) mmol/L BUN 26 H (7-17) mg/dL Creatinine 0.46 L (0.52-1.04) mg/dL Glucose 158 H (74-99) mg/dL POC Glucose (mg/dL) 169 H (70-110) mg/dL Calcium 8.2 L (8.4-10.2) mg/dL AST 42 H (14-36) U/L Troponin I (0.000-0.034) ng/mL Total Protein 4.8 L (6.3-8.2) g/dL Albumin 2.6 L (3.5-5.0) g/dL Procalcitonin (0.02-0.09) ng/mL 01/20/24 01/20/24 Range/Units 06:38 06:38 WBC 21.4 H (3.8-10.6) k/uL PT (10.0-12.5) sec APTT 48.9 H (22.0-30.0) sec Sodium (137-145) mmol/L BUN (7-17) mg/dL Creatinine (0.52-1.04) mg/dL Glucose (74-99) mg/dL POC Glucose (mg/dL) (70-110) mg/dL Calcium (8.4-10.2) mg/dL AST (14-36) U/L Troponin I (0.000-0.034) ng/mL Total Protein (6.3-8.2) g/dL Albumin (3.5-5.0) g/dL Procalcitonin (0.02-0.09) ng/mL Assessment and Plan Assessment: Acute on chronic hypoxic respiratory failure secondary to COPD exacerbation Pneumonia with bilateral patchy infiltrates and sepsis Non-ST elevated DE Ongoing nicotine addiction Rheumatoid arthritis Hypertension History of pleural effusions and thoracentesis several years ago Moderate to severe protein calorie malnutrition GI and DVT prophylaxis Plan: Patient will be continued on telemetry and heparin drip. 2D echocardiogram was ordered. Continue with DuoNebs and IV Solu-Medrol and oxygen supplementation. Continue with antibiotics, Zosyn. Follow-up CBC and BMP tomorrow. Prognosis guarded. Pulmonary and cardiology is on board. Time with Patient: Greater than 30
[2024-01-21 10:40] LABS: Basophils % (A) 0 %; Eosinophils % (A) 0 %; HCT 42.5 % (34.0-46.0); Lymphocytes # (A) 0.4 k/uL (1.0-4.8); Lymphocytes % (A) 2 %; MCH 30.1 pg (25.0-35.0); MCHC 30.6 g/dL (31.0-37.0); MCV 98.1 fL (80.0-100.0); Mean Platelet Volume 7.4; Monocytes # (A) 0.4 k/uL (0-1.0); Monocytes % (A) 2 %; Neutrophils # (A) 17.1 k/uL (1.3-7.7); Neutrophils % (A) 95 %; Platelet Count 416 k/uL (150-450); RBC 4.33 m/uL (3.80-5.40); RDW 14.4 % (11.5-15.5)
[2024-01-21 10:55] LABS: African American GFR (CKD) >90 (>60 ml/min/1.73 sqM); Anion Gap 3 mmol/L; Blood Urea Nitrogen 29 mg/dL (7-17); Calcium 9.1 mg/dL (8.4-10.2); Carbon Dioxide 29 mmol/L (22-30); Chloride 102 mmol/L (98-107); Glucose 166 mg/dL (74-99); Non-African American GFR(CKD) >90 (>60 ml/min/1.73 sqM); Potassium 3.9 mmol/L (3.5-5.1); Sodium 134 mmol/L (137-145)
[2024-01-21 11:19] LABS: Glucose,Whole Blood 163 mg/dL (70-110)
--- NOTE | 2024-01-21 13:14 | P.PN ---
Subjective Progress Note Date: 01/21/24 Principal diagnosis: Myocardial infarction. This is a 73-year-old female patient with a history of chronic obstructive pulmonary disease, recently requiring home oxygen following her recent admission, hypertension, toyed arthritis, chronic and ongoing tobacco dependence. She was just discharged on January 13, 2024 following a COPD exacerbation atypical chest. She did continue her Augmentin, bronchodilators and a prednisone taper. She was to follow-up in our office in 1 week. She presented here to the emergency room yesterday 01/19/2024 with complaints again of increasing shortness of breath, chest pain, cough and congestion. Chest x- ray does reveal evidence of COPD and patchy infiltrate traits, right greater than left. Increased from previous. White count 22.9. Hemoglobin 13.8. Platelets 358. Sodium 132. Potassium 4.7. Bicarb 28. BUN 45. Creatinine 0.58. Glucose 169. AST 64. ALT 24. Troponin 4.180. proBNP 21,100. Viral screen was negative. She had been initiated on a heparin drip. An echocardiogram revealed a preserved left ventricular systolic function with ejection fraction of 55% and no significant aortic valve disease. She is seen today in consultation in the emergency department. She is awake and alert in no acute distress. She is dyspneic with conversation. Dyspneic with minimal exertion. Currently maintaining O2 saturations in the 90s on 3 L/min per nasal cannula. She is afebrile. Hemodynamically stable. The patient does appear to have cardiac injury but refused to undergo cardiac catheterization per cardiology consultation. Medical treatment will be recommended. She has also requested a DNR/DNI CODE STATUS. Progress note dated January 20, 2024. The patient is seen today in room 380. Currently, the patient is on O2 at 4 L by nasal cannula. She is receiving IV heparin, and saline at 20 cc an hour. Her procalcitonin level was 0.62. She continues on Zosyn. Her labs include a white count 21.4, hemoglobin 12.3, hematocrit 38.2, and a platelet count of 383,000. The patient's PTT was 48.9. Sodium 133, potassium 4.5, chlorides 106, CO2 25, BUN 26, creatinine 0.46. The glucose is 158. Calcium 8.2. Blood cu ltures are showing no growth. Chest x-ray shows some bilateral opacities, right greater than left, on top of changes of COPD. This note dated January 21, 2024. The patient was again seen in room 380. Currently, she is on 4 L of oxygen by nasal cannula. The patient is getting saline at 10 cc an hour, and IV heparin via protocol. The patient did not have any complaints today. She is laying nearly flat in bed. White count 18, hemoglobin 13, hematocrit 42.5, platelet count 416,000. PTT is 93.6. Sodium 134, potassium 3.9, chlorides 102, CO2 29, BUN 29 and creatinine 0.53. Glucose is 163. Calcium is 9.1. Blood cultures are currently negative. Chest x-ray shows patchy bilateral opacities. Objective - Vital Signs Vital signs: Vital Signs Temp 97.9 F 01/21/24 08:00 Pulse 89 01/21/24 11:59 Resp 18 01/21/24 11:59 BP 95/63 01/21/24 11:59 Pulse Ox 93 L 01/21/24 11:59 FiO2 Intake & Output 01/20/24 01/21/24 01/21/24 18:59 06:59 18:59 Intake Total 470.657 572.925 Output Total 1000 1300 Balance -529.343 -727.075 Intake: Intake, IV Titration 120.657 222.925 Amount Heparin Sod,Pork in 0.45% 120.657 222.925 NaCl 25,000 unit In 0.45 % NaCl 1 250ml.bag @ 12 UNITS/KG/HR 5.987 mls/hr IV .Q24H [facility] Rx#: [id number] Oral 350 350 Output: Urine 1000 1300 Other: Voiding Method External Catheter External Catheter External Catheter # Voids 1 - Exam No acute distress, oriented 3. No acute distress. Currently on 4 L by nasal cannula. HEENT examination is grossly unremarkable. Mucous membranes are moist. No oral lesions. Neck supple. Full range of motion. No adenopathy thyromegaly or neck vein distention. Cardiovascular examination reveals regular rhythm rate. S1-S2 normal. No S3 or S4. No discernible murmur noted. Heart sounds are distant. Heart rate is 74 bpm. Lungs reveal rhonchi and crackles. Breath sounds equal. 4 L saturation is 93%. Abdomen soft bowel sounds are heard. No masses or tenderness. Extremities are intact. No cyanosis clubbing or edema. Skin is without rash or lesion. Neurologic examination is brief but nonfocal. - Labs CBC & Chem 7: 01/21/24 09:35 01/21/24 09:35 Labs: Abnormal Lab Results - Last 24 Hours (Table) 01/20/24 01/20/24 01/21/24 Range/Units 16:03 20:16 06:08 WBC (3.8-10.6) k/uL MCHC (31.0-37.0) g/dL Neutrophils # (1.3-7.7) k/uL Lymphocytes # (1.0-4.8) k/uL APTT (22.0-30.0) sec Sodium (137-145) mmol/L BUN (7-17) mg/dL Glucose (74-99) mg/dL POC Glucose (mg/dL) 196 H 174 H 136 H (70-110) mg/dL 01/21/24 01/21/24 01/21/24 Range/Units 09:35 09:35 09:35 WBC 18.0 H (3.8-10.6) k/uL MCHC 30.6 L (31.0-37.0) g/dL Neutrophils # 17.1 H (1.3-7.7) k/uL Lymphocytes # 0.4 L (1.0-4.8) k/uL APTT 93.6 H (22.0-30.0) sec Sodium 134 L (137-145) mmol/L BUN 29 H (7-17) mg/dL Glucose 166 H (74-99) mg/dL POC Glucose (mg/dL) (70-110) mg/dL 01/21/24 Range/Units 11:17 WBC (3.8-10.6) k/uL MCHC (31.0-37.0) g/dL Neutrophils # (1.3-7.7) k/uL Lymphocytes # (1.0-4.8) k/uL APTT (22.0-30.0) sec Sodium (137-145) mmol/L BUN (7-17) mg/dL Glucose (74-99) mg/dL POC Glucose (mg/dL) 163 H (70-110) mg/dL Microbiology - Last 24 Hours (Table) 01/19/24 02:10 Blood Culture - Preliminary Blood 01/19/24 01:55 Blood Culture - Preliminary Blood Assessment and Plan Assessment: Chest pain in a patient found to have elevated troponins and EKG changes. Acute exacerbation of chronic obstructive pulmonary disease. Chronic and ongoing tobacco dependence. Rheumatoid arthritis. History of previous pleural effusions attributed to rheumatoid arthritis with previous thoracentesis. Hypertension. Anorexia/cachexia syndrome. Plan: Plan dated January 20, 2024. The patient is seen today in room 380. The patient declined cardiac catheterization. She continues on 4 L by nasal cannula, saline at 20 cc an hour, IV heparin, and Zosyn. Chest x-ray does show some patchy bilateral infiltrates. Procalcitonin level was 0.62. Labs, x-rays, and medications are reviewed. We will continue to follow the patient, and make recommendations along the way. Prognosis is currently guarded. The patient is a DO NOT RESUSCITATE/DO NOT INTUBATE patient. Plan dated January 21, 2024. The patient was seen today in room 380. Currently, the patient is on 4 L of oxygen. She is getting saline at 10 cc an hour. She is also receiving IV heparin via protocol. Labs, x-rays, medications are reviewed. We will continue to follow the patient, make recommendations along the way. The patient is a no code patient. The patient did refuse cardiac catheterization. Prognosis is guarded. Time with Patient: Less than 30
--- NOTE | 2024-01-21 15:15 | P.PN ---
Subjective Progress Note Date: 01/21/24 Chief complaint: Chest discomfort and shortness of breath History of present illness: The patient is a very pleasant 73-year-old female patient with a past medical history significant for smoking and chronic obstructive pulmonary disease and no cardiovascular history from before including coronary artery disease or diabetes or hypertension or dyslipidemia. She just was discharged from the hospital recently after she was admitted with a COPD exacerbation. During her hospital stay she underwent an echo and that showed normal LV systolic function. She was brought to the hospital again by her son complaining of shortness of breath and the chest discomfort started within the last 24 hours. She underwent further investigation including an EKG and that showed sinus mechanism with ST changes anteriorly concerning for severe underlying coronary artery disease. Also she underwent a blood work including troponin came in to be abnormal and consistent with acute coronary syndrome. NT proBNP came in to be elevated as well around 21,000. Her hemoglobin and kidney function and electrolytes are within normal limits with a chest x-ray showed finding consistent with COPD and possibly left pleural effusion. The patient was seen and evaluated this morning. She is having ongoing chest discomfort about 8/10 in intensity. Currently she is on heparin. She stated that the chest discomfort has came down slightly after she was started on heparin. No known history of coronary artery disease or congestive heart failure or any cardiac arrhythmia and never seen by any manager automotive before. She was advised to undergo a heart catheterization given the ongoing chest discomfort and abnormal blood work with abnormal troponin which is consistent with acute coronary syndrome in her case but the patient refused and she would like medical treatment only. With that being said I am going to start the patient on dual antiplatelet therapy along with a statin along with beta-kenn. She does not seems in any overt congestive heart failure at this point. Examination revealed distant heart sounds with regular rhythm and diminished breathing sounds bilaterally. No edema was noted. 01/19 Patient states that she does have chest pain with movement but is fine when she is laying down. She was up in a chair for about an hour and felt very anxious a nd had pain. She feels the pain is about the same as when she came in to the hospital. Discussed results of the testing and recommendations for cardiac catheterization but patient is very adamant that she only wants to try medications at this time. She is on a heparin drip. Echocardiogram has been obtained and report is pending. 01/20 Patient states that she continues to have chest pain in the midsternal area. She states that Corona seems to help her a little bit. But it does not go away. Blood pressure 95/63, heart rate 89, pulse ox 93% on 4 L nasal cannula. Echocardiogram revealed EF of 25 to 30%. Results of the echocardiogram reviewed with the patient. She does state that her symptoms started with a stressful event so this could be related to Takotsubo cardiomyopathy. Patient offered cardiac catheterization again which she declined. Physical Examination Gen: This is a 73-year-old female in no acute distress. HEENT: Head is atraumatic, normocephalic. Pupils equal, round. Sclerae is anicteric. NECK: Supple. No JVD. No lymphadenopathy. No thyromegaly. LUNGS: Clear to auscultation. No wheezes or rhonchi. No intercostal retractions. HEART: Regular rate and rhythm. No murmur. ABDOMEN: Soft. Bowel sounds are present. No masses. No tenderness. EXTREMITIES: No pedal edema. No calf tenderness. NEUROLOGICAL: Patient is awake, alert and oriented x3. Assessment Acute hypoxic respiratory failure likely secondary to COPD exacerbation Non-ST elevated myocardial infarction versus possible Takotsubo cardiomyopathy Chronic obstructive pulmonary disease Smoking and the patient is actively smoker Plan Patient declined undergoing coronary angiogram Continue medical management for the acute coronary syndrome Consider dual antiplatelet therapy along with at least intermediate intensity statin and anti-ischemic medication Discontinue heparin drip Continue current cardiac medications: Aspirin 81 mg daily, atorvastatin 40 mg daily, Plavix 75 mg daily, lisinopril 10 mg daily, Toprol-XL 25 mg twice daily Follow-up with the patient Nurse practitioner note has been reviewed, I agree with documented findings and plan of care. Patient was seen and examined. Objective - Vital Signs Vital signs: Vital Signs Temp 97.9 F 01/21/24 08:00 Pulse 89 01/21/24 11:59 Resp 18 01/21/24 11:59 BP 95/63 01/21/24 11:59 Pulse Ox 93 L 01/21/24 11:59 FiO2 Intake & Output 01/20/24 01/21/24 01/21/24 18:59 06:59 18:59 Intake Total 470.657 572.925 Output Total 1000 1300 Balance -529.343 -727.075 Intake: Intake, IV Titration 120.657 222.925 Amount Heparin Sod,Pork in 0.45% 120.657 222.925 NaCl 25,000 unit In 0.45 % NaCl 1 250ml.bag @ 12 UNITS/KG/HR 5.987 mls/hr IV .Q24H [facility] Rx#: [id number] Oral 350 350 Output: Urine 1000 1300 Other: Voiding Method External Catheter External Catheter External Catheter # Voids 1 - Labs CBC & Chem 7: 01/21/24 09:35 01/21/24 09:35 Labs: Abnormal Lab Results - Last 24 Hours (Table) 01/20/24 01/20/24 01/21/24 Range/Units 16:03 20:16 06:08 WBC (3.8-10.6) k/uL MCHC (31.0-37.0) g/dL Neutrophils # (1.3-7.7) k/uL Lymphocytes # (1.0-4.8) k/uL APTT (22.0-30.0) sec Sodium (137-145) mmol/L BUN (7-17) mg/dL Glucose (74-99) mg/dL POC Glucose (mg/dL) 196 H 174 H 136 H (70-110) mg/dL 01/21/24 01/21/24 01/21/24 Range/Units 09:35 09:35 09:35 WBC 18.0 H (3.8-10.6) k/uL MCHC 30.6 L (31.0-37.0) g/dL Neutrophils # 17.1 H (1.3-7.7) k/uL Lymphocytes # 0.4 L (1.0-4.8) k/uL APTT 93.6 H (22.0-30.0) sec Sodium 134 L (137-145) mmol/L BUN 29 H (7-17) mg/dL Glucose 166 H (74-99) mg/dL POC Glucose (mg/dL) (70-110) mg/dL 01/21/24 Range/Units 11:17 WBC (3.8-10.6) k/uL MCHC (31.0-37.0) g/dL Neutrophils # (1.3-7.7) k/uL Lymphocytes # (1.0-4.8) k/uL APTT (22.0-30.0) sec Sodium (137-145) mmol/L BUN (7-17) mg/dL Glucose (74-99) mg/dL POC Glucose (mg/dL) 163 H (70-110) mg/dL Microbiology - Last 24 Hours (Table) 01/19/24 02:10 Blood Culture - Preliminary Blood 01/19/24 01:55 Blood Culture - Preliminary Blood
[2024-01-21 16:12] LABS: Glucose,Whole Blood 149 mg/dL (70-110)
[2024-01-21 20:08] LABS: Glucose,Whole Blood 177 mg/dL (70-110)
[2024-01-22 06:09] LABS: Glucose,Whole Blood 131 mg/dL (70-110)
[2024-01-22 06:59] LABS: Basophils % (A) 0 %; Eosinophils % (A) 0 %; HCT 41.6 % (34.0-46.0); HGB 12.9 gm/dL (11.4-16.0); Lymphocytes # (A) 0.3 k/uL (1.0-4.8); Lymphocytes % (A) 2 %; MCH 30.2 pg (25.0-35.0); MCV 97.2 fL (80.0-100.0); Mean Platelet Volume 7.7; Monocytes # (A) 0.6 k/uL (0-1.0); Monocytes % (A) 3 %; Neutrophils # (A) 20.2 k/uL (1.3-7.7); Neutrophils % (A) 95 %; Platelet Count 460 k/uL (150-450); RBC 4.28 m/uL (3.80-5.40); RDW 14.4 % (11.5-15.5); WBC 21.2 k/uL (3.8-10.6)
[2024-01-22 07:26] LABS: African American GFR (CKD) >90 (>60 ml/min/1.73 sqM); Anion Gap 5 mmol/L; Blood Urea Nitrogen 28 mg/dL (7-17); Calcium 9.1 mg/dL (8.4-10.2); Carbon Dioxide 29 mmol/L (22-30); Chloride 99 mmol/L (98-107); Glucose 131 mg/dL (74-99); Non-African American GFR(CKD) >90 (>60 ml/min/1.73 sqM); Potassium 4.5 mmol/L (3.5-5.1); Sodium 133 mmol/L (137-145)
--- NOTE | 2024-01-22 11:02 | P.PN ---
Subjective Progress Note Date: 01/21/24 Patient is a 73-year-old female with a past medical history of COPD and recent admission due to exacerbation presents to ER with complaints of worsening shortness of breath, cough and unable to bring out any sputum. Patient was also having left retrosternal chest pain with elevated troponin level, non-ST elevated GA. Patient is being treated for possible pneumonia. 01/20/2024 Patient is currently sitting in the chair. Awake alert and oriented x 3. Still having shortness of breath and exertional dyspnea. Afebrile. No nausea or vomiting. Denied any complaints of chest pain. Cough without any sputum production. Chest x-ray showed COPD with superimposed patchy opacities right greater than left. Slight worsening on the right now. Patient is maintained on Lasix 40 mg IV daily and also on heparin drip. Continued on DuoNebs and IV Solu-Medrol 40 IV every 8 hourly. Patient is also on antibiotics in the home of [facility]. Laboratory test showed WBC 21.4 hemoglobin 12.3 and platelets 383 Sodium 133 potassium 4.5 chloride 106 bicarb is 25 BUN 26 and creatinine 0.46 and blood sugar 158 Calcium 8.2 total bili 0.8 AST 42 ALT 22 and alk phos 104 and albumin 2.6. Pulmonary and cardiology is on board. 01/21/2024 Patient is sitting in the chair. Awake alert and oriented x 3. Complains of chest tightness in the midsternal region and also shortness of breath. Requiring oxygen at 4 L via nasal cannula. Patient is being continued on heparin drip due to elevated troponin level/NSTEMI. Patient is also on antibiotics and also IV Solu-Medrol and DuoNebs. Laboratory data showed WBC 18.0 hemoglobin 13.0 and platelets 416, sodium 134 potassium 3.9 chloride 102 bicarb is 29 BUN 29 creatinine 0.53 and blood sugar 166 and calcium 9.1. Cardiology and pulmonary is on board. Current medications reviewed. Objective - Vital Signs Vital signs: Vital Signs Temp 97.9 F 01/21/24 08:00 Pulse 89 01/21/24 11:59 Resp 18 01/21/24 11:59 BP 95/63 01/21/24 11:59 Pulse Ox 93 L 01/21/24 11:59 FiO2 Intake & Output 01/20/24 01/21/24 01/21/24 18:59 06:59 18:59 Intake Total 470.657 572.925 Output Total 1000 1300 Balance -529.343 -727.075 Intake: Intake, IV Titration 120.657 222.925 Amount Heparin Sod,Pork in 0.45% 120.657 222.925 NaCl 25,000 unit In 0.45 % NaCl 1 250ml.bag @ 12 UNITS/KG/HR 5.987 mls/hr IV .[facility]H [facility] Rx#: [id number] Oral 350 350 Output: Urine 1000 1300 Other: Voiding Method External Catheter External Catheter External Catheter # Voids 1 - Exam PHYSICAL EXAMINATION: Patient is lying in the bed comfortably, no acute distress, awake alert and oriented.. HEENT: Normocephalic. Neck is supple. Pupils reactive. Nostrils clear. Oral cavity is moist. Neck reveals no JVD, carotid bruits, or thyromegaly. CHEST EXAMINATION: Trachea is central. Symmetrical expansion. Bilateral prolonged expiration and diminished sounds.. CARDIAC: Normal S1, S2 with no gallops. No murmurs ABDOMEN: Soft. Bowel sounds normal. No organomegaly. No abdominal bruits. Extremities: reveal no edema. No clubbing or cyanosis Neurologically awake, alert, oriented x3 with well-coordinated movements. No focal deficits noted Skin: No rash or skin lesions. Psychiatric: Coperative. Nonsuicidal Musculoskeletal: No joint swelling or deformity. Normal range of motion. - Labs CBC & Chem 7: 01/22/24 06:20 01/22/24 06:20 Labs: Abnormal Lab Results - Last 24 Hours (Table) 01/20/24 01/20/24 01/21/24 Range/Units 16:03 20:16 06:08 WBC (3.8-10.6) k/uL MCHC (31.0-37.0) g/dL Neutrophils # (1.3-7.7) k/uL Lymphocytes # (1.0-4.8) k/uL APTT (22.0-30.0) sec Sodium (137-145) mmol/L BUN (7-17) mg/dL Glucose (74-99) mg/dL POC Glucose (mg/dL) 196 H 174 H 136 H (70-110) mg/dL 01/21/24 01/21/24 01/21/24 Range/Units 09:35 09:35 09:35 WBC 18.0 H (3.8-10.6) k/uL MCHC 30.6 L (31.0-37.0) g/dL Neutrophils # 17.1 H (1.3-7.7) k/uL Lymphocytes # 0.4 L (1.0-4.8) k/uL APTT 93.6 H (22.0-30.0) sec Sodium 134 L (137-145) mmol/L BUN 29 H (7-17) mg/dL Glucose 166 H (74-99) mg/dL POC Glucose (mg/dL) (70-110) mg/dL 01/21/24 Range/Units 11:17 WBC (3.8-10.6) k/uL MCHC (31.0-37.0) g/dL Neutrophils # (1.3-7.7) k/uL Lymphocytes # (1.0-4.8) k/uL APTT (22.0-30.0) sec Sodium (137-145) mmol/L BUN (7-17) mg/dL Glucose (74-99) mg/dL POC Glucose (mg/dL) 163 H (70-110) mg/dL Microbiology - Last 24 Hours (Table) 01/19/24 02:10 Blood Culture - Preliminary Blood 01/19/24 01:55 Blood Culture - Preliminary Blood Assessment and Plan Assessment: Acute on chronic hypoxic respiratory failure secondary to COPD exacerbation Pneumonia with bilateral patchy infiltrates and sepsis Acute Non-ST elevated GA Ongoing nicotine addiction Rheumatoid arthritis Hypertension History of pleural effusions and thoracentesis several years ago Moderate to severe protein calorie malnutrition GI and DVT prophylaxis Plan: Patient will be continued on telemetry and heparin drip. Cardiology recommends angiogram. 2D echocardiogram was ordered. Continue with DuoNebs and IV Solu-Medrol and oxygen supplementation. Continue with antibiotics, Zosyn. Patient is also on IV Lasix 40 mg daily Follow-up CBC and BMP tomorrow. Prognosis guarded. Pulmonary and cardiology is on board. Time with Patient: Greater than 30
[2024-01-22 11:27] LABS: Glucose,Whole Blood 258 mg/dL (70-110)
[2024-01-22 11:27] LABS: Glucose,Whole Blood >600 mg/dL (70-110)
--- NOTE | 2024-01-22 12:55 | P.PN ---
Subjective Progress Note Date: 01/21/24 Principal diagnosis: Reason for follow-up is pneumonia and leukocytosis Patient is a 73-year-old female with a past medical history significant for COPD hypertension rheumatoid arthritis and heart failure presenting to [facility] ER for evaluation of increasing shortness of breath chest pain cough, patient did have a low-grade fever mild elevated procalcitonin chest x-ray with the patient recently right and left lower lung concerning for possible pneumonia. On today's evaluation that is 01/21/2024, patient has been afebrile, patient is breathing comfortably and is currently on 4 L nasal cannula oxygen, patient denies having any significant cough and chest pain has decreased in intensity shortness of breath, patient denies nausea vomiting or diarrhea and no abdominal pain Patient white count is down to 18.0, creatinine 0.53 Objective - Vital Signs Vital signs: Vital Signs Temp 97.9 F 01/21/24 08:00 Pulse 68 01/21/24 15:09 Resp 18 01/21/24 11:59 BP 95/63 01/21/24 11:59 Pulse Ox 93 L 01/21/24 11:59 FiO2 Intake & Output 01/20/24 01/21/24 01/21/24 18:59 06:59 18:59 Intake Total 470.657 600.000 Output Total 1000 1300 Balance -529.343 -700.000 Intake: Intake, IV Titration 120.657 250.000 Amount Heparin Sod,Pork in 0.45% 120.657 250.000 NaCl 25,000 unit In 0.45 % NaCl 1 250ml.bag @ 12 UNITS/KG/HR 5.987 mls/hr IV .Q24H [facility] Rx#: [id number] Oral 350 350 Output: Urine 1000 1300 Other: Voiding Method External Catheter External Catheter External Catheter # Voids 1 - Exam GENERAL DESCRIPTION: An elderly female lying in bed in no distress RESPIRATORY SYSTEM: Unlabored breathing , decreased intensity of breath sounds, no wheeze HEART: S1 S2 regular rate and rhythm , ABDOMEN: Soft , no tenderness EXTREMITIES: No edema feet - Labs CBC & Chem 7: 01/22/24 06:20 01/22/24 06:20 Labs: Abnormal Lab Results - Last 24 Hours (Table) 01/20/24 01/20/24 01/21/24 Range/Units 16:03 20:16 06:08 WBC (3.8-10.6) k/uL MCHC (31.0-37.0) g/dL Neutrophils # (1.3-7.7) k/uL Lymphocytes # (1.0-4.8) k/uL APTT (22.0-30.0) sec Sodium (137-145) mmol/L BUN (7-17) mg/dL Glucose (74-99) mg/dL POC Glucose (mg/dL) 196 H 174 H 136 H (70-110) mg/dL 01/21/24 01/21/24 01/21/24 Range/Units 09:35 09:35 09:35 WBC 18.0 H (3.8-10.6) k/uL MCHC 30.6 L (31.0-37.0) g/dL Neutrophils # 17.1 H (1.3-7.7) k/uL Lymphocytes # 0.4 L (1.0-4.8) k/uL APTT 93.6 H (22.0-30.0) sec Sodium 134 L (137-145) mmol/L BUN 29 H (7-17) mg/dL Glucose 166 H (74-99) mg/dL POC Glucose (mg/dL) (70-110) mg/dL 01/21/24 Range/Units 11:17 WBC (3.8-10.6) k/uL MCHC (31.0-37.0) g/dL Neutrophils # (1.3-7.7) k/uL Lymphocytes # (1.0-4.8) k/uL APTT (22.0-30.0) sec Sodium (137-145) mmol/L BUN (7-17) mg/dL Glucose (74-99) mg/dL POC Glucose (mg/dL) 163 H (70-110) mg/dL Microbiology - Last 24 Hours (Table) 01/19/24 02:10 Blood Culture - Preliminary Blood 01/19/24 01:55 Blood Culture - Preliminary Blood Assessment and Plan (1) Pneumonia Current Visit: Yes Status: Acute Code(s): J18.9 - PNEUMONIA, UNSPECIFIED ORGANISM SNOMED Code(s): 833485886 (2) Leukocytosis Current Visit: Yes Status: Acute Code(s): D72.829 - ELEVATED WHITE BLOOD CELL COUNT, UNSPECIFIED SNOMED Code(s): 406990262 Plan: 1patient presented to hospital with increasing shortness of breath which is lik arnol multifactorial in this patient will to have a cough elevated white count mildly elevated procalcitonin with the opacities in the right upper and left lower lobe concerning for pneumonia with question of possible gram-negative questionable aspiration 2try to obtain a sputum for Gram stain and culture 3patient is afebrile, the patient white count is trending down, patient to continue with Zosyn 3.375 g every 8 hours while waiting for the workup to be completed Dictation was produced using [employer] dictation software. please excuse any grammatical, word or spelling errors. Time with Patient: Less than 30
--- NOTE | 2024-01-22 12:56 | P.PN ---
Subjective Progress Note Date: 01/22/24 Principal diagnosis: Reason for follow-up is pneumonia and leukocytosis Patient is a 73-year-old female with a past medical history significant for COPD hypertension rheumatoid arthritis and heart failure presenting to [facility] ER for evaluation of increasing shortness of breath chest pain cough, patient did have a low-grade fever mild elevated procalcitonin chest x-ray with the patient recently right and left lower lung concerning for possible pneumonia. On today's evaluation that is 01/22/2024,the patient denies any fever or any chills, patient is breathing comfortably on 4 L nasal cannula oxygen, the patient denies chest pain shortness of breath and denies significant cough or sputum production, patient denies abdominal pain, no nausea vomiting or diarrhea. Patient white count is slightly up to 21.2 creatinine 0.63 Objective - Vital Signs Vital signs: Vital Signs Temp 98 F 01/22/24 08:35 Pulse 96 01/22/24 11:40 Resp 17 01/22/24 08:35 BP 91/58 01/22/24 08:35 Pulse Ox 93 L 01/22/24 08:35 FiO2 Intake & Output 01/21/24 01/22/24 01/22/24 18:59 06:59 18:59 Intake Total 1190.000 444 Output Total 1850 150 650 Balance -660.000 -150 -206 Intake: Intake, IV Titration 250.000 Amount Heparin Sod,Pork in 0.45% 250.000 NaCl 25,000 unit In 0.45 % NaCl 1 250ml.bag @ 12 UNITS/KG/HR 5.987 mls/hr IV .Q24H [facility] Rx#: [id number] Oral 940 444 Output: Urine 1850 150 650 Other: Voiding Method External Catheter External Catheter External Catheter # Voids 2 - Exam GENERAL DESCRIPTION: An elderly female lying in bed in no distress RESPIRATORY SYSTEM: Unlabored breathing , decreased intensity of breath sounds, no wheeze HEART: S1 S2 regular rate and rhythm , ABDOMEN: Soft , no tenderness EXTREMITIES: No edema feet - Labs CBC & Chem 7: 01/22/24 06:20 01/22/24 06:20 Labs: Abnormal Lab Results - Last 24 Hours (Table) 01/21/24 01/21/24 01/22/24 Range/Units 16:11 20:07 06:08 WBC (3.8-10.6) k/uL Plt Count (150-450) k/uL Neutrophils # (1.3-7.7) k/uL Lymphocytes # (1.0-4.8) k/uL Sodium (137-145) mmol/L BUN (7-17) mg/dL Glucose (74-99) mg/dL POC Glucose (mg/dL) 149 H 177 H 131 H (70-110) mg/dL 01/22/24 01/22/24 01/22/24 Range/Units 06:20 06:20 11:23 WBC 21.2 H (3.8-10.6) k/uL Plt Count 460 H (150-450) k/uL Neutrophils # 20.2 H (1.3-7.7) k/uL Lymphocytes # 0.3 L (1.0-4.8) k/uL Sodium 133 L (137-145) mmol/L BUN 28 H (7-17) mg/dL Glucose 131 H (74-99) mg/dL POC Glucose (mg/dL) >600 H (70-110) mg/dL 01/22/24 Range/Units 11:25 WBC (3.8-10.6) k/uL Plt Count (150-450) k/uL Neutrophils # (1.3-7.7) k/uL Lymphocytes # (1.0-4.8) k/uL Sodium (137-145) mmol/L BUN (7-17) mg/dL Glucose (74-99) mg/dL POC Glucose (mg/dL) 258 H (70-110) mg/dL Microbiology - Last 24 Hours (Table) 01/19/24 02:10 Blood Culture - Preliminary Blood 01/19/24 01:55 Blood Culture - Preliminary Blood Assessment and Plan (1) Pneumonia Current Visit: Yes Status: Acute Code(s): J18.9 - PNEUMONIA, UNSPECIFIED ORGANISM SNOMED Code(s): 061693475 (2) Leukocytosis Current Visit: Yes Status: Acute Code(s): D72.829 - ELEVATED WHITE BLOOD CELL COUNT, UNSPECIFIED SNOMED Code(s): 098725220 Plan: 1patient presented to hospital with increasing shortness of breath which is likely multifactorial in this patient will to have a cough elevated white count mildly elevated procalcitonin with the opacities in the right upper and left lower lobe concerning for pneumonia with question of possible gram-negative questionable aspiration 2try to obtain a sputum for Gram stain and culture 3patient is afebrile, patient noticed to have slight worsening of the white count which could be related to steroids and will monitor closely for now continue with the Zosyn Dictation was produced using [employer] dictation software. please excuse any grammatical, word or spelling errors. Time with Patient: Less than 30
--- NOTE | 2024-01-22 14:46 | P.PN ---
Subjective Progress Note Date: 01/22/24 Principal diagnosis: Myocardial infarction. This is a 73-year-old female patient with a history of chronic obstructive pulmonary disease, recently requiring home oxygen following her recent admission, hypertension, toyed arthritis, chronic and ongoing tobacco dependence. She was just discharged on January 13, 2024 following a COPD exacerbation atypical chest. She did continue her Augmentin, bronchodilators and a prednisone taper. She was to follow-up in our office in 1 week. She presented here to the emergency room yesterday 01/19/2024 with complaints again of increasing shortness of breath, chest pain, cough and congestion. Chest x- ray does reveal evidence of COPD and patchy infiltrate traits, right greater than left. Increased from previous. White count 22.9. Hemoglobin 13.8. Platelets 358. Sodium 132. Potassium 4.7. Bicarb 28. BUN 45. Creatinine 0.58. Glucose 169. AST 64. ALT 24. Troponin 4.180. proBNP 21,100. Viral screen was negative. She had been initiated on a heparin drip. An echocardiogram revealed a preserved left ventricular systolic function with ejection fraction of 55% and no significant aortic valve disease. She is seen today in consultation in the emergency department. She is awake and alert in no acute distress. She is dyspneic with conversation. Dyspneic with minimal exertion. Currently maintaining O2 saturations in the 90s on 3 L/min per nasal cannula. She is afebrile. Hemodynamically stable. The patient does appear to have cardiac injury but refused to undergo cardiac catheterization per cardiology consultation. Medical treatment will be recommended. She has also requested a DNR/DNI CODE STATUS. Progress note dated January 20, 2024. The patient is seen today in room 380. Currently, the patient is on O2 at 4 L by nasal cannula. She is receiving IV heparin, and saline at 20 cc an hour. Her procalcitonin level was 0.62. She continues on Zosyn. Her labs include a white count 21.4, hemoglobin 12.3, hematocrit 38.2, and a platelet count of 383,000. The patient's PTT was 48.9. Sodium 133, potassium 4.5, chlorides 106, CO2 25, BUN 26, creatinine 0.46. The glucose is 158. Calcium 8.2. Blood cu ltures are showing no growth. Chest x-ray shows some bilateral opacities, right greater than left, on top of changes of COPD. Progress note dated January 21, 2024. The patient was again seen in room 380. Currently, she is on 4 L of oxygen by nasal cannula. The patient is getting saline at 10 cc an hour, and IV heparin via protocol. The patient did not have any complaints today. She is laying nearly flat in bed. White count 18, hemoglobin 13, hematocrit 42.5, platelet count 416,000. PTT is 93.6. Sodium 134, potassium 3.9, chlorides 102, CO2 29, BUN 29 and creatinine 0.53. Glucose is 163. Calcium is 9.1. Blood cultures are currently negative. Chest x-ray shows patchy bilateral opacities. Progress note dated January 22, 2024. 73-year-old female seen today in room 380. Currently, the patient is on 4 L of oxygen by nasal cannula. She is getting saline at 10 cc an hour. She denies any complaints today. Currently, white count 21.2, hemoglobin 12.9, hematocrit 41.6, and platelet count 460,000. Sodium 133, potassium 4.5, chloride 99, CO2 29, BUN 28, and creatinine 0.63. Glucose is 258. Calcium is 9.1. Blood cultures are currently negative. Objective - Vital Signs Vital signs: Vital Signs Temp 97.9 F 01/22/24 11:35 Pulse 96 01/22/24 11:40 Resp 17 01/22/24 11:35 BP 89/53 01/22/24 11:35 Pulse Ox 95 01/22/24 11:35 FiO2 Intake & Output 01/21/24 01/22/24 01/22/24 18:59 06:59 18:59 Intake Total 1190.000 444 Output Total 1850 150 650 Balance -660.000 -150 -206 Intake: Intake, IV Titration 250.000 Amount Heparin Sod,Pork in 0.45% 250.000 NaCl 25,000 unit In 0.45 % NaCl 1 250ml.bag @ 12 UNITS/KG/HR 5.987 mls/hr IV .Q24H [facility] Rx#: [id number] Oral 940 444 Output: Urine 1850 150 650 Other: Voiding Method External Catheter External Catheter External Catheter # Voids 2 - Exam No acute distress, oriented 3. No acute distress. Currently on 4 L by nasal cannula. HEENT examination is grossly unremarkable. Mucous membranes are moist. No oral lesions. Neck supple. Full range of motion. No adenopathy thyromegaly or neck vein distention. Cardiovascular examination reveals regular rhythm rate. S1-S2 normal. No S3 or S4. No discernible murmur noted. Heart sounds are distant. Heart rate is 73 bpm. Lungs reveal rhonchi and crackles. Breath sounds equal. 4 L saturation is 95 %. Abdomen soft bowel sounds are heard. No masses or tenderness. Extremities are intact. No cyanosis clubbing or edema. Skin is without rash or lesion. Neurologic examination is brief but nonfocal. - Labs CBC & Chem 7: 01/22/24 06:20 01/22/24 06:20 Labs: Abnormal Lab Results - Last 24 Hours (Table) 01/21/24 01/21/24 01/22/24 Range/Units 16:11 20:07 06:08 WBC (3.8-10.6) k/uL Plt Count (150-450) k/uL Neutrophils # (1.3-7.7) k/uL Lymphocytes # (1.0-4.8) k/uL Sodium (137-145) mmol/L BUN (7-17) mg/dL Glucose (74-99) mg/dL POC Glucose (mg/dL) 149 H 177 H 131 H (70-110) mg/dL 01/22/24 01/22/24 01/22/24 Range/Units 06:20 06:20 11:23 WBC 21.2 H (3.8-10.6) k/uL Plt Count 460 H (150-450) k/uL Neutrophils # 20.2 H (1.3-7.7) k/uL Lymphocytes # 0.3 L (1.0-4.8) k/uL Sodium 133 L (137-145) mmol/L BUN 28 H (7-17) mg/dL Glucose 131 H (74-99) mg/dL POC Glucose (mg/dL) >600 H (70-110) mg/dL 01/22/24 Range/Units 11:25 WBC (3.8-10.6) k/uL Plt Count (150-450) k/uL Neutrophils # (1.3-7.7) k/uL Lymphocytes # (1.0-4.8) k/uL Sodium (137-145) mmol/L BUN (7-17) mg/dL Glucose (74-99) mg/dL POC Glucose (mg/dL) 258 H (70-110) mg/dL Microbiology - Last 24 Hours (Table) 01/19/24 02:10 Blood Culture - Preliminary Blood 01/19/24 01:55 Blood Culture - Preliminary Blood Assessment and Plan Assessment: Chest pain in a patient found to have elevated troponins and EKG changes. Acute exacerbation of chronic obstructive pulmonary disease. Chronic and ongoing tobacco dependence. Rheumatoid arthritis. History of previous pleural effusions attributed to rheumatoid arthritis with previous thoracentesis. Hypertension. Anorexia/cachexia syndrome. Plan: Plan dated January 20, 2024. The patient is seen today in room 380. The patient declined cardiac catheterization. She continues on 4 L by nasal cannula, saline at 20 cc an hour, IV heparin, and Zosyn. Chest x-ray does show some patchy bilateral infiltrates. Procalcitonin level was 0.62. Labs, x-rays, and medications are reviewed. We will continue to follow the patient, and make recommendations along the way. Prognosis is currently guarded. The patient is a DO NOT RESUSCITATE/DO NOT INTUBATE patient. Plan dated January 21, 2024. The patient was seen today in room 380. Currently, the patient is on 4 L of oxygen. She is getting saline at 10 cc an hour. She is also receiving IV heparin via protocol. Labs, x-rays, medications are reviewed. We will continue to follow the patient, make recommendations along the way. The patient is a no code patient. The patient did refuse cardiac catheterization. Prognosis is guarded. Plan dated January 22, 2024. The patient is seen today in room 380. The patient is currently on 4 L of oxygen. Labs, x-rays, and medications are reviewed. The patient was apparently offered a cardiac catheterization, but did not want to have one. The patient continues on usual medications, including Lipitor, Symbicort, Plavix, Lasix, insulin, updrafts, Solu-Medrol, and Zosyn. We will continue to follow make recommendations along the way. The patient's overall prognosis remains very guarded. Time with Patient: Less than 30
[2024-01-22] MEDS: ALPRAZolam 0.25 MG TAB PO PRN (15:13)
--- NOTE | 2024-01-22 15:23 | P.PN ---
Subjective Progress Note Date: 01/22/24 Chief complaint: Chest discomfort and shortness of breath History of present illness: The patient is a very pleasant 73-year-old female patient with a past medical history significant for smoking and chronic obstructive pulmonary disease and no cardiovascular history from before including coronary artery disease or diabetes or hypertension or dyslipidemia. She just was discharged from the hospital recently after she was admitted with a COPD exacerbation. During her hospital stay she underwent an echo and that showed normal LV systolic function. She was brought to the hospital again by her son complaining of shortness of breath and the chest discomfort started within the last 24 hours. She underwent further investigation including an EKG and that showed sinus mechanism with ST changes anteriorly concerning for severe underlying coronary artery disease. Also she underwent a blood work including troponin came in to be abnormal and consistent with acute coronary syndrome. NT proBNP came in to be elevated as well around 21,000. Her hemoglobin and kidney function and electrolytes are within normal limits with a chest x-ray showed finding consistent with COPD and possibly left pleural effusion. The patient was seen and evaluated this morning. She is having ongoing chest discomfort about 8/10 in intensity. Currently she is on heparin. She stated that the chest discomfort has came down slightly after she was started on heparin. No known history of coronary artery disease or congestive heart failure or any cardiac arrhythmia and never seen by any high school science tutor before. She was advised to undergo a heart catheterization given the ongoing chest discomfort and abnormal blood work with abnormal troponin which is consistent with acute coronary syndrome in her case but the patient refused and she would like medical treatment only. With that being said I am going to start the patient on dual antiplatelet therapy along with a statin along with beta-kenn. She does not seems in any overt congestive heart failure at this point. Examination revealed distant heart sounds with regular rhythm and diminished breathing sounds bilaterally. No edema was noted. 01/19 Patient states that she does have chest pain with movement but is fine when she is laying down. She was up in a chair for about an hour and felt very anxious a nd had pain. She feels the pain is about the same as when she came in to the hospital. Discussed results of the testing and recommendations for cardiac catheterization but patient is very adamant that she only wants to try medications at this time. She is on a heparin drip. Echocardiogram has been obtained and report is pending. 01/20 Patient states that she continues to have chest pain in the midsternal area. She states that [place] seems to help her a little bit. But it does not go away. Blood pressure 95/63, heart rate 89, pulse ox 93% on 4 L nasal cannula. Echocardiogram revealed EF of 25 to 30%. Results of the echocardiogram reviewed with the patient. She does state that her symptoms started with a stressful event so this could be related to Takotsubo cardiomyopathy. Patient offered cardiac catheterization again which she declined. 01/21 Patient states she still has a left chest pain but felt that when she got out of bed she was feeling better. The pain is worse with movement from lying to a sitting position. She states she walked a little bit last evening and sat in a chair for about 1 hour. She states she feels very weak. She did receive [place] about 1 hour ago. Blood pressure 89/53, heart rate 73, pulse ox 95% on 4 L nasal cannula. Repeat blood work reveals WBC 21, hemoglobin 12.9. BUN 28 creatinine 0.63. Heparin drip was discontinued yesterday. Patient maintained on dual antiplatelet therapy, statin, and beta-kenn. Physical Examination Gen: This is a 73-year-old female in no acute distress. HEENT: Head is atraumatic, normocephalic. Pupils equal, round. Sclerae is anicteric. NECK: Supple. No JVD. No lymphadenopathy. No thyromegaly. LUNGS: Clear to auscultation. No wheezes or rhonchi. No intercostal retractions. HEART: Regular rate and rhythm. No murmur. ABDOMEN: Soft. Bowel sounds are present. No masses. No tenderness. EXTREMITIES: No pedal edema. No calf tenderness. NEUROLOGICAL: Patient is awake, alert and oriented x3. Assessment Acute hypoxic respiratory failure likely secondary to COPD exacerbation Non-ST elevated myocardial infarction versus possible Takotsubo cardiomyopathy Chronic obstructive pulmonary disease Smoking and the patient is actively smoker Plan Patient declined undergoing coronary angiogram Continue medical management for the acute coronary syndrome Continue current cardiac medications: Aspirin 81 mg daily, atorvastatin 40 mg daily, Plavix 75 mg daily, lisinopril 10 mg daily, Toprol-XL 25 mg twice daily Discontinue IV Lasix Follow-up with the patient Nurse practitioner note has been reviewed, I agree with documented findings and plan of care. Patient was seen and examined. Objective - Vital Signs Vital signs: Vital Signs Temp 97.9 F 01/22/24 11:35 Pulse 96 01/22/24 11:40 Resp 17 01/22/24 11:35 BP 89/53 01/22/24 11:35 Pulse Ox 95 01/22/24 11:35 FiO2 Intake & Output 01/21/24 01/22/24 01/22/24 18:59 06:59 18:59 Intake Total 1190.000 444 Output Total 1850 150 650 Balance -660.000 -150 -206 Intake: Intake, IV Titration 250.000 Amount Heparin Sod,Pork in 0.45% 250.000 NaCl 25,000 unit In 0.45 % NaCl 1 250ml.bag @ 12 UNITS/KG/HR 5.987 mls/hr IV .Q24H [facility] Rx#: [id number] Oral 940 444 Output: Urine 1850 150 650 Other: Voiding Method External Catheter External Catheter External Catheter # Voids 2 - Labs CBC & Chem 7: 01/22/24 06:20 01/22/24 06:20 Labs: Abnormal Lab Results - Last 24 Hours (Table) 01/21/24 01/21/24 01/22/24 Range/Units 16:11 20:07 06:08 WBC (3.8-10.6) k/uL Plt Count (150-450) k/uL Neutrophils # (1.3-7.7) k/uL Lymphocytes # (1.0-4.8) k/uL Sodium (137-145) mmol/L BUN (7-17) mg/dL Glucose (74-99) mg/dL POC Glucose (mg/dL) 149 H 177 H 131 H (70-110) mg/dL 01/22/24 01/22/24 01/22/24 Range/Units 06:20 06:20 11:23 WBC 21.2 H (3.8-10.6) k/uL Plt Count 460 H (150-450) k/uL Neutrophils # 20.2 H (1.3-7.7) k/uL Lymphocytes # 0.3 L (1.0-4.8) k/uL Sodium 133 L (137-145) mmol/L BUN 28 H (7-17) mg/dL Glucose 131 H (74-99) mg/dL POC Glucose (mg/dL) >600 H (70-110) mg/dL 01/22/24 Range/Units 11:25 WBC (3.8-10.6) k/uL Plt Count (150-450) k/uL Neutrophils # (1.3-7.7) k/uL Lymphocytes # (1.0-4.8) k/uL Sodium (137-145) mmol/L BUN (7-17) mg/dL Glucose (74-99) mg/dL POC Glucose (mg/dL) 258 H (70-110) mg/dL Microbiology - Last 24 Hours (Table) 01/19/24 02:10 Blood Culture - Preliminary Blood 01/19/24 01:55 Blood Culture - Preliminary Blood
[2024-01-22 16:14] LABS: Glucose,Whole Blood 203 mg/dL (70-110)
[2024-01-22 20:17] LABS: Glucose,Whole Blood 202 mg/dL (70-110)
[2024-01-23] MEDS: MELOXICAM 7.5 MG TAB PO PRN (01:19)
[2024-01-23 05:51] LABS: Glucose,Whole Blood 106 mg/dL (70-110)
--- NOTE | 2024-01-23 10:33 | P.PN ---
Subjective Progress Note Date: 01/22/24 Patient is a 73-year-old female with a past medical history of COPD and recent admission due to exacerbation presents to ER with complaints of worsening shortness of breath, cough and unable to bring out any sputum. Patient was also having left retrosternal chest pain with elevated troponin level, non-ST elevated HI. Patient is being treated for possible pneumonia. 01/20/2024 Patient is currently sitting in the chair. Awake alert and oriented x 3. Still having shortness of breath and exertional dyspnea. Afebrile. No nausea or vomiting. Denied any complaints of chest pain. Cough without any sputum production. Chest x-ray showed COPD with superimposed patchy opacities right greater than left. Slight worsening on the right now. Patient is maintained on Lasix 40 mg IV daily and also on heparin drip. Continued on DuoNebs and IV Solu-Medrol 40 IV every 8 hourly. Patient is also on antibiotics in the home of [facility]. Laboratory test showed WBC 21.4 hemoglobin 12.3 and platelets 383 Sodium 133 potassium 4.5 chloride 106 bicarb is 25 BUN 26 and creatinine 0.46 and blood sugar 158 Calcium 8.2 total bili 0.8 AST 42 ALT 22 and alk phos 104 and albumin 2.6. Pulmonary and cardiology is on board. 01/21/2024 Patient is sitting in the chair. Awake alert and oriented x 3. Complains of chest tightness in the midsternal region and also shortness of breath. Requiring oxygen at 4 L via nasal cannula. Patient is being continued on heparin drip due to elevated troponin level/NSTEMI. Patient is also on antibiotics and also IV Solu-Medrol and DuoNebs. Laboratory data showed WBC 18.0 hemoglobin 13.0 and platelets 416, sodium 134 potassium 3.9 chloride 102 bicarb is 29 BUN 29 creatinine 0.53 and blood sugar 166 and calcium 9.1. Cardiology and pulmonary is on board. 01/22/2024 Patient is currently lying in bed. Awake alert and oriented x 3. Requiring 4 L oxygen via nasal cannula. Patient also states that she is feeling anxious and still short of breath with exertion/ambulation. Also still complaining of left retrosternal pain which has been constant.. Blood pressure is marginal. Heparin drip has been discontinued today patient was started on dual antiplatelet therapy. Other laboratory data showed WBC 21.2 hemoglobin 12.9 and platelets 460 Sodium 133 potassium 4.5 chloride 99 bicarb is 29 BUN 28 and creatinine 0.63 and blood sugar 131 and calcium 9.1. Patient is being continued on antibiotics in the form of Zosyn and also IV steroids and DuoNebs. 2D echocardiogram showed severe LV dysfunction with large apical septal and lateral infarct bilateral enlargement. Pulmonary and cardiology and ID is on board. Current medications reviewed. Objective - Vital Signs Vital signs: Vital Signs Temp 98 F 01/22/24 08:35 Pulse 97 01/22/24 08:35 Resp 17 01/22/24 08:35 BP 91/58 01/22/24 08:35 Pulse Ox 93 L 01/22/24 08:35 FiO2 Intake & Output 01/21/24 01/22/24 01/22/24 18:59 06:59 18:59 Intake Total 1190.000 222 Output Total 1850 150 Balance -660.000 -150 222 Intake: Intake, IV Titration 250.000 Amount Heparin Sod,Pork in 0.45% 250.000 NaCl 25,000 unit In 0.45 % NaCl 1 250ml.bag @ 12 UNITS/KG/HR 5.987 mls/hr IV .Q24H [facility] Rx#: [id number] Oral 940 222 Output: Urine 1850 150 Other: Voiding Method External Catheter External Catheter External Catheter # Voids 2 - Exam PHYSICAL EXAMINATION: Patient is lying in the bed comfortably, no acute distress, awake alert and oriented.. HEENT: Normocephalic. Neck is supple. Pupils reactive. Nostrils clear. Oral cavity is moist. Neck reveals no JVD, carotid bruits, or thyromegaly. CHEST EXAMINATION: Trachea is central. Symmetrical expansion. Bilateral prolonged expiration and diminished sounds.. Nonlabored breathing. CARDIAC: Normal S1, S2 with no gallops. No murmurs ABDOMEN: Soft. Bowel sounds normal. No organomegaly. No abdominal bruits. Extremities: reveal no edema. No clubbing or cyanosis Neurologically awake, alert, oriented x3 with well-coordinated movements. No focal deficits noted Skin: No rash or skin lesions. Psychiatric: Coperative. Nonsuicidal Musculoskeletal: No joint swelling or deformity. Normal range of motion. - Labs CBC & Chem 7: 01/22/24 06:20 04/24/24 06:20 Labs: Abnormal Lab Results - Last 24 Hours (Table) 01/21/24 01/21/24 01/21/24 Range/Units 11:17 16:11 20:07 WBC (3.8-10.6) k/uL Plt Count (150-450) k/uL Neutrophils # (1.3-7.7) k/uL Lymphocytes # (1.0-4.8) k/uL Sodium (137-145) mmol/L BUN (7-17) mg/dL Glucose (74-99) mg/dL POC Glucose (mg/dL) 163 H 149 H 177 H (70-110) mg/dL 01/22/24 01/22/24 01/22/24 Range/Units 06:08 06:20 06:20 WBC 21.2 H (3.8-10.6) k/uL Plt Count 460 H (150-450) k/uL Neutrophils # 20.2 H (1.3-7.7) k/uL Lymphocytes # 0.3 L (1.0-4.8) k/uL Sodium 133 L (137-145) mmol/L BUN 28 H (7-17) mg/dL Glucose 131 H (74-99) mg/dL POC Glucose (mg/dL) 131 H (70-110) mg/dL Microbiology - Last 24 Hours (Table) 01/19/24 02:10 Blood Culture - Preliminary Blood 01/19/24 01:55 Blood Culture - Preliminary Blood Assessment and Plan Assessment: Acute on chronic hypoxic respiratory failure secondary to COPD exacerbation Pneumonia with bilateral patchy infiltrates and sepsis. Procalcitonin level is 0.6 Acute Non-ST elevated HI Ongoing nicotine addiction Rheumatoid arthritis Hypertension History of pleural effusions and thoracentesis several years ago Moderate to severe protein calorie malnutrition GI and DVT prophylaxis Plan: Continue monitoring. Heparin drip has been discontinued and patient was started on dual antiplatelets. Cardiology recommends angiogram but patient does not wish to proceed at this time.. 2D echocardiogram was ordered. Continue with DuoNebs and IV Solu-Medrol and oxygen supplementation. Continue with antibiotics, Zosyn. Patient will be continued on aspirin, Plavix, metoprolol, statins and lisinopril. Follow-up CBC and BMP tomorrow. Prognosis guarded. Pulmonary and cardiology is on board. Time with Patient: Greater than 30
[2024-01-23 10:34] LABS: Basophils % (A) 0 %; Eosinophils # (A) 0.1 k/uL (0-0.7); Eosinophils % (A) 0 %; HCT 38.6 % (34.0-46.0); HGB 12.6 gm/dL (11.4-16.0); Lymphocytes # (A) 0.8 k/uL (1.0-4.8); Lymphocytes % (A) 4 %; MCH 32.1 pg (25.0-35.0); MCHC 32.8 g/dL (31.0-37.0); MCV 97.9 fL (80.0-100.0); Mean Platelet Volume 7.9; Monocytes # (A) 0.8 k/uL (0-1.0); Monocytes % (A) 4 %; Neutrophils # (A) 20.6 k/uL (1.3-7.7); Neutrophils % (A) 92 %; Platelet Count 360 k/uL (150-450); RBC 3.94 m/uL (3.80-5.40); RDW 14.9 % (11.5-15.5); WBC 22.5 k/uL (3.8-10.6)
[2024-01-23 11:01] LABS: African American GFR (CKD) >90 (>60 ml/min/1.73 sqM); Anion Gap 3 mmol/L; Blood Urea Nitrogen 35 mg/dL (7-17); Calcium 8.9 mg/dL (8.4-10.2); Carbon Dioxide 32 mmol/L (22-30); Chloride 100 mmol/L (98-107); Glucose 99 mg/dL (74-99); Non-African American GFR(CKD) >90 (>60 ml/min/1.73 sqM); Potassium 4.2 mmol/L (3.5-5.1); Sodium 135 mmol/L (137-145)
[2024-01-23 11:58] LABS: Glucose,Whole Blood 113 mg/dL (70-110)
--- NOTE | 2024-01-23 15:31 | XR ---
EXAMINATION TYPE: XR chest 1V portable DATE OF EXAM: 01/23/2024 Comparison: 01/20/2024 Clinical History: 73-year-old female CHF Findings: Heart mildly enlarged. Diffuse interstitial opacities persist. Some improving right upper lobe opacit y but with worsening right basilar opacity. Impression: Cardiomegaly with ongoing interstitial changes. Given some shifting opacities on the right, consider atypical patchy pulmonary edema on the right. Pneumonia can be excluded on a clinical basis.
--- NOTE | 2024-01-23 15:34 | P.PN ---
Subjective Progress Note Date: 01/23/24 Principal diagnosis: Myocardial infarction. This is a 73-year-old female patient with a history of chronic obstructive pulmonary disease, recently requiring home oxygen following her recent admission, hypertension, toyed arthritis, chronic and ongoing tobacco dependence. She was just discharged on January 13, 2024 following a COPD exacerbation atypical chest. She did continue her Augmentin, bronchodilators and a prednisone taper. She was to follow-up in our office in 1 week. She presented here to the emergency room yesterday 01/19/2024 with complaints again of increasing shortness of breath, chest pain, cough and congestion. Chest x- ray does reveal evidence of COPD and patchy infiltrate traits, right greater than left. Increased from previous. White count 22.9. Hemoglobin 13.8. Platelets 358. Sodium 132. Potassium 4.7. Bicarb 28. BUN 45. Creatinine 0.58. Glucose 169. AST 64. ALT 24. Troponin 4.180. proBNP 21,100. Viral screen was negative. She had been initiated on a heparin drip. An echocardiogram revealed a preserved left ventricular systolic function with ejection fraction of 55% and no significant aortic valve disease. She is seen today in consultation in the emergency department. She is awake and alert in no acute distress. She is dyspneic with conversation. Dyspneic with minimal exertion. Currently maintaining O2 saturations in the 90s on 3 L/min per nasal cannula. She is afebrile. Hemodynamically stable. The patient does appear to have cardiac injury but refused to undergo cardiac catheterization per cardiology consultation. Medical treatment will be recommended. She has also requested a DNR/DNI CODE STATUS. Progress note dated January 20, 2024. The patient is seen today in room 380. Currently, the patient is on O2 at 4 L by nasal cannula. She is receiving IV heparin, and saline at 20 cc an hour. Her procalcitonin level was 0.62. She continues on Zosyn. Her labs include a white count 21.4, hemoglobin 12.3, hematocrit 38.2, and a platelet count of 383,000. The patient's PTT was 48.9. Sodium 133, potassium 4.5, chlorides 106, CO2 25, BUN 26, creatinine 0.46. The glucose is 158. Calcium 8.2. Blood cu ltures are showing no growth. Chest x-ray shows some bilateral opacities, right greater than left, on top of changes of COPD. Progress note dated January 21, 2024. The patient was again seen in room 380. Currently, she is on 4 L of oxygen by nasal cannula. The patient is getting saline at 10 cc an hour, and IV heparin via protocol. The patient did not have any complaints today. She is laying nearly flat in bed. White count 18, hemoglobin 13, hematocrit 42.5, platelet count 416,000. PTT is 93.6. Sodium 134, potassium 3.9, chlorides 102, CO2 29, BUN 29 and creatinine 0.53. Glucose is 163. Calcium is 9.1. Blood cultures are currently negative. Chest x-ray shows patchy bilateral opacities. Progress note dated January 22, 2024. 73-year-old female seen today in room 380. Currently, the patient is on 4 L of oxygen by nasal cannula. She is getting saline at 10 cc an hour. She denies any complaints today. Currently, white count 21.2, hemoglobin 12.9, hematocrit 41.6, and platelet count 460,000. Sodium 133, potassium 4.5, chloride 99, CO2 29, BUN 28, and creatinine 0.63. Glucose is 258. Calcium is 9.1. Blood cultures are currently negative. Progress note dated January 23, 2024. 73-year-old female seen today in room 380. Currently, the patient is on O2 at 2 L. Her Solu-Medrol will be converted to prednisone 40 mg a day. Will order chest x-ray on the patient. She is on 2 L. She is getting saline at 10 cc an hour. Her daughter is in the room, and we speak to her about her mother. Current labs include a white count 22.5, hemoglobin 12.6, hematocrit 38.6, and a platelet count of 360,000. Sodium 135, potassium 4.2, chlorides 100, CO2 32, BUN 35, creatinine 0.48. Glucose is 113. Calcium is 8.9. Objective - Vital Signs Vital signs: Vital Signs Temp 98.7 F 01/23/24 12:00 Pulse 94 01/23/24 15:22 Resp 16 01/23/24 14:00 BP 101/67 01/23/24 12:00 Pulse Ox 92 L 01/23/24 12:15 FiO2 Intake & Output 01/22/24 01/23/2424 18:59 06:59 18:59 Intake Total 444 240 60 Output Total 650 250 Balance -206 -10 60 Intake: Oral 444 240 60 Output: Urine 650 250 Other: Voiding Method External Catheter External Catheter External Catheter # Voids 3 # Bowel Movements 1 - Exam No acute distress, oriented 3. No acute distress. Currently on 4 L by nasal cannula. HEENT examination is grossly unremarkable. Mucous membranes are moist. No oral lesions. Neck supple. Full range of motion. No adenopathy thyromegaly or neck vein distention. Cardiovascular examination reveals regular rhythm rate. S1-S2 normal. No S3 or S4. No discernible murmur noted. Heart sounds are distant. Heart rate is 94 bpm. Lungs reveal rhonchi and crackles. Breath sounds equal. 4 L saturation is 93 %. Abdomen soft bowel sounds are heard. No masses or tenderness. Extremities are intact. No cyanosis clubbing or edema. Skin is without rash or lesion. Neurologic examination is brief but nonfocal. - Labs CBC & Chem 7: 01/23/24 09:16 01/23/24 09:16 Labs: Abnormal Lab Results - Last 24 Hours (Table) 01/22/24 01/22/24 01/23/24 Range/Units 16:12 20:14 09:16 WBC 22.5 H (3.8-10.6) k/uL Neutrophils # 20.6 H (1.3-7.7) k/uL Lymphocytes # 0.8 L (1.0-4.8) k/uL Sodium (137-145) mmol/L Carbon Dioxide (22-30) mmol/L BUN (7-17) mg/dL Creatinine (0.52-1.04) mg/dL POC Glucose (mg/dL) 203 H 202 H (70-110) mg/dL 01/23/24 01/23/24 Range/Units 09:16 11:57 WBC (3.8-10.6) k/uL Neutrophils # (1.3-7.7) k/uL Lymphocytes # (1.0-4.8) k/uL Sodium 135 L (137-145) mmol/L Carbon Dioxide 32 H (22-30) mmol/L BUN 35 H (7-17) mg/dL Creatinine 0.48 L (0.52-1.04) mg/dL POC Glucose (mg/dL) 113 H (70-110) mg/dL Microbiology - Last 24 Hours (Table) 01/19/24 02:10 Blood Culture - Preliminary Blood 01/19/24 01:55 Blood Culture - Preliminary Blood Assessment and Plan Assessment: Chest pain in a patient found to have elevated troponins and EKG changes. Acute exacerbation of chronic obstructive pulmonary disease. Chronic and ongoing tobacco dependence. Rheumatoid arthritis. History of previous pleural effusions attributed to rheumatoid arthritis with previous thoracentesis. Hypertension. Anorexia/cachexia syndrome. Plan: Plan dated January 20, 2024. The patient is seen today in room 380. The patient declined cardiac catheterization. She continues on 4 L by nasal cannula, saline at 20 cc an hour, IV heparin, and Zosyn. Chest x-ray does show some patchy bilateral infil trates. Procalcitonin level was 0.62. Labs, x-rays, and medications are reviewed. We will continue to follow the patient, and make recommendations along the way. Prognosis is currently guarded. The patient is a DO NOT RESUSCITATE/DO NOT INTUBATE patient. Plan dated January 21, 2024. The patient was seen today in room 380. Currently, the patient is on 4 L of oxygen. She is getting saline at 10 cc an hour. She is also receiving IV heparin via protocol. Labs, x-rays, medications are reviewed. We will continue to follow the patient, make recommendations along the way. The patient is a no code patient. The patient did refuse cardiac catheterization. Prognosis is guarded. Plan dated January 22, 2024. The patient is seen today in room 380. The patient is currently on 4 L of oxygen. Labs, x-rays, and medications are reviewed. The patient was apparently offered a cardiac catheterization, but did not want to have one. The patient continues on usual medications, including Lipitor, Symbicort, Plavix, Lasix, insulin, updrafts, Solu-Medrol, and Zosyn. We will continue to follow make recommendations along the way. The patient's overall prognosis remains very guarded. Plan dated January 23, 2024. The patient was seen today in room 380. The patient's daughter is in the room. She continues on oxygen at 4 L by nasal cannula. Saturations are 93%. On room air, her saturations are 81%. The patient will have a portable chest x-ray ordered. In addition, her Solu-Medrol was discontinued in favor of prednisone 40 mg a day. Chest x-ray shows cardiomegaly, and diffuse interstitial changes. Will continue to follow the patient, and make recommendations along the way. Prognosis is certainly guarded. Time with Patient: Less than 30
--- NOTE | 2024-01-23 16:25 | P.PN ---
Subjective The patient is a very pleasant 73-year-old female patient with a past medical history significant for smoking and chronic obstructive pulmonary disease and no cardiovascular history from before including coronary artery disease or diabetes or hypertension or dyslipidemia. She just was discharged from the hospital recently after she was admitted with a COPD exacerbation. During her hospital stay she underwent an echo and that showed normal LV systolic function. She was brought to the hospital again by her son complaining of shortness of breath and the chest discomfort started within the last 24 hours. She underwent further investigation including an EKG and that showed sinus mechanism with ST changes anteriorly concerning for severe underlying coronary artery disease. Also she underwent a blood work including troponin came in to be abnormal and consistent with acute coronary syndrome. NT proBNP came in to be elevated as well around 21,000. Her hemoglobin and kidney function and electrolytes are within normal limits with a chest x-ray showed finding consistent with COPD and possibly left pleural effusion. The patient was seen and evaluated this morning. She is having ongoing chest discomfort about 8/10 in intensity. Currently she is on heparin. She stated that the chest discomfort has came down slightly after she was started on heparin. No known history of coronary artery disease or congestive heart failure or any cardiac arrhythmia and never seen by any treating machine operator before. She was advised to undergo a heart catheterization given the ongoing chest discomfort and abnormal blood work with abnormal troponin whic h is consistent with acute coronary syndrome in her case but the patient refused and she would like medical treatment only. With that being said I am going to start the patient on dual antiplatelet therapy along with a statin along with beta-kenn. She does not seems in any overt congestive heart failure at this point. Examination revealed distant heart sounds with regular rhythm and diminished breathing sounds bilaterally. No edema was noted. 01/19 Patient states that she does have chest pain with movement but is fine when she is laying down. She was up in a chair for about an hour and felt very anxious and had pain. She feels the pain is about the same as when she came in to the hospital. Discussed results of the testing and recommendations for cardiac catheterization but patient is very adamant that she only wants to try medications at this time. She is on a heparin drip. Echocardiogram has been obtained and report is pending. 01/20 Patient states that she continues to have chest pain in the midsternal area. She states that [place] seems to help her a little bit. But it does not go away. Blood pressure 95/63, heart rate 89, pulse ox 93% on 4 L nasal cannula. Echocar diogram revealed EF of 25 to 30%. Results of the echocardiogram reviewed with the patient. She does state that her symptoms started with a stressful event so this could be related to Takotsubo cardiomyopathy. Patient offered cardiac catheterization again which she declined. 01/21 Patient states she still has a left chest pain but felt that when she got out of bed she was feeling better. The pain is worse with movement from lying to a sitting position. She states she walked a little bit last evening and sat in a chair for about 1 hour. She states she feels very weak. She did receive [place] about 1 hour ago. Blood pressure 89/53, heart rate 73, pulse ox 95% on 4 L nasal cannula. Repeat blood work reveals WBC 21, hemoglobin 12.9. BUN 28 creatinine 0.63. Heparin drip was discontinued yesterday. Patient maintained on dual antiplatelet therapy, statin, and beta-kenn. 01/22 patient seen and examined. Unfortunately she is stating she is feeling much worse in terms of more chest pain and more fatigued with minimal exertion such as walking to the bathroom. She states she does find her sitting there but if she gets up to do anything she feels significantly fatiguedand has chest tightness..EKG was performed yesterday which shows diffuse T-wave inversions. Physical Examination Gen: This is a 73-year-old female in no acute distress. HEENT: Head is atraumatic, normocephalic. Pupils equal, round. Sclerae is anicteric. NECK: Supple. No JVD. No lymphadenopathy. No thyromegaly. LUNGS: Clear to auscultation. No wheezes or rhonchi. No intercostal retractions. HEART: Regular rate and rhythm. No murmur. ABDOMEN: Soft. Bowel sounds are present. No masses. No tenderness. EXTREMITIES: No pedal edema. No calf tenderness. NEUROLOGICAL: Patient is awake, alert and oriented x3. Assessment Acute hypoxic respiratory failure likely secondary to COPD exacerbation Non-ST elevated myocardial infarction versus possible Takotsubo cardiomyopathy Chronic obstructive pulmonary disease Smoking and the patient is actively smoker Plan patient originally declining heart catheterization however is having persistent chest pain and shortness of breath worse with exertion and improved with rest concerning for angina. We therefore discussed risks and benefits and potential benefit of patient feeling better. She states she wants to go home however does not want to feel like she currently is. We therefore discussed definitive diagnosis and treatment and patient agreeable to catheterization. She will need to lie flat and we will give additional dose of Lasix and monitor response. Likely heart catheterization 01/23. Objective - Vital Signs Vital signs: Vital Signs Temp 98.7 F 01/23/24 12:00 Pulse 95 01/23/24 15:39 Resp 16 01/23/24 14:00 BP 101/67 01/23/24 12:00 Pulse Ox 92 L 01/23/24 12:15 FiO2 Intake & Output 01/22/24 01/23/24 01/23/24 18:59 06:59 18:59 Intake Total 444 240 60 Output Total 650 250 Balance -206 -10 60 Intake: Oral 444 240 60 Output: Urine 650 250 Other: Voiding Method External Catheter External Catheter External Catheter # Voids 3 # Bowel Movements 1 - Labs CBC & Chem 7: 01/23/24 09:16 01/23/24 09:16 Labs: Abnormal Lab Results - Last 24 Hours (Table) 01/22/24 01/23/24 01/23/24 Range/Units 20:14 09:16 09:16 WBC 22.5 H (3.8-10.6) k/uL Neutrophils # 20.6 H (1.3-7.7) k/uL Lymphocytes # 0.8 L (1.0-4.8) k/uL Sodium 135 L (137-145) mmol/L Carbon Dioxide 32 H (22-30) mmol/L BUN 35 H (7-17) mg/dL Creatinine 0.48 L (0.52-1.04) mg/dL POC Glucose (mg/dL) 202 H (70-110) mg/dL 01/23/24 Range/Units 11:57 WBC (3.8-10.6) k/uL Neutrophils # (1.3-7.7) k/uL Lymphocytes # (1.0-4.8) k/uL Sodium (137-145) mmol/L Carbon Dioxide (22-30) mmol/L BUN (7-17) mg/dL Creatinine (0.52-1.04) mg/dL POC Glucose (mg/dL) 113 H (70-110) mg/dL Microbiology - Last 24 Hours (Table) 01/19/24 02:10 Blood Culture - Preliminary Blood 01/19/24 01:55 Blood Culture - Preliminary Blood
[2024-01-23 16:38] LABS: Glucose,Whole Blood 196 mg/dL (70-110)
--- NOTE | 2024-01-23 16:55 | P.PN ---
Subjective Progress Note Date: 01/23/24 Principal diagnosis: Reason for follow-up is pneumonia and leukocytosis Patient is a 73-year-old female with a past medical history significant for COPD hypertension rheumatoid arthritis and heart failure presenting to [facility] ER for evaluation of increasing shortness of breath chest pain cough, patient did have a low-grade fever mild elevated procalcitonin chest x-ray with the patient recently right and left lower lung concerning for possible pneumonia. On today's evaluation that is 01/23/2024,the patient remains to be afebrile, patient is on 4 L nasal cannula supplemental oxygen and breathing slightly comfortably no significant cough slightly decreased no chest pain.Patient denies having any nausea or vomiting, no abdominal pain and no diarrhea has been reported. Patient white count is 22.5 creatinine 0.48 blood culture negative sputum not collected chest x-ray cardiomegaly with interstitial changes opacity on the right Objective - Vital Signs Vital signs: Vital Signs Temp 98.7 F 01/23/24 12:00 Pulse 95 01/23/24 15:39 Resp 16 01/23/24 14:00 BP 101/67 01/23/24 12:00 Pulse Ox 92 L 01/23/24 12:15 FiO2 Intake & Output 01/22/24 01/23/24 01/23/24 18:59 06:59 18:59 Intake Total 444 240 60 Output Total 650 250 Balance -206 -10 60 Intake: Oral 444 240 60 Output: Urine 650 250 Other: Voiding Method External Catheter External Catheter External Catheter # Voids 3 # Bowel Movements 1 - Exam GENERAL DESCRIPTION: An elderly female lying in bed in no distress RESPIRATORY SYSTEM: Unlabored breathing , decreased intensity of breath sounds, no wheeze HEART: S1 S2 regular rate and rhythm , ABDOMEN: Soft , no tenderness EXTREMITIES: No edema feet - Labs CBC & Chem 7: 01/23/24 09:16 01/23/24 09:16 Labs: Abnormal Lab Results - Last 24 Hours (Table) 01/22/24 01/23/24 01/23/24 Range/Units 20:14 09:16 09:16 WBC 22.5 H (3.8-10.6) k/uL Neutrophils # 20.6 H (1.3-7.7) k/uL Lymphocytes # 0.8 L (1.0-4.8) k/uL Sodium 135 L (137-145) mmol/L Carbon Dioxide 32 H (22-30) mmol/L BUN 35 H (7-17) mg/dL Creatinine 0.48 L (0.52-1.04) mg/dL POC Glucose (mg/dL) 202 H (70-110) mg/dL 01/23/24 01/23/24 Range/Units 11:57 16:36 WBC (3.8-10.6) k/uL Neutrophils # (1.3-7.7) k/uL Lymphocytes # (1.0-4.8) k/uL Sodium (137-145) mmol/L Carbon Dioxide (22-30) mmol/L BUN (7-17) mg/dL Creatinine (0.52-1.04) mg/dL POC Glucose (mg/dL) 113 H 196 H (70-110) mg/dL Microbiology - Last 24 Hours (Table) 01/19/24 02:10 Blood Culture - Preliminary Blood 01/19/24 01:55 Blood Culture - Preliminary Blood Assessment and Plan (1) Pneumonia Current Visit: Yes Status: Acute Code(s): J18.9 - PNEUMONIA, UNSPECIFIED ORGANISM SNOMED Code(s): 539520021 (2) Leukocytosis Current Visit: Yes Status: Acute Code(s): D72.829 - ELEVATED WHITE BLOOD CELL COUNT, UNSPECIFIED SNOMED Code(s): 865133680 Plan: 1patient presented to hospital with increasing shortness of breath which is likely multifactorial in this patient will to have a cough elevated white count mildly elevated procalcitonin with the opacities in the right upper and left lower lobe concerning for pneumonia with question of possible gram-negative questionable aspiration 2sputum not collected blood cultures are negative 3patient is afebrile, worsening leukocytosis likely related to steroids which has been discontinued today and will monitor white count closely continue with Zosyn Daughter at the bedside question answered Dictation was produced using [employer] dictation software. please excuse any grammatical, word or spelling errors. Time with Patient: Less than 30
[2024-01-23] MEDS: FUROSEMIDE 10 MG/ML 4 ML VIAL IV SCH (17:07)
[2024-01-23 20:31] LABS: Glucose,Whole Blood 132 mg/dL (70-110)
--- NOTE | 2024-01-23 23:34 | P.PN ---
Subjective Progress Note Date: 01/23/24 Patient is a 73-year-old female with a past medical history of COPD and recent admission due to exacerbation presents to ER with complaints of worsening shortness of breath, cough and unable to bring out any sputum. Patient was also having left retrosternal chest pain with elevated troponin level, non-ST elevated PA. Patient is being treated for possible pneumonia. 01/20/2024 Patient is currently sitting in the chair. Awake alert and oriented x 3. Still having shortness of breath and exertional dyspnea. Afebrile. No nausea or vomiting. Denied any complaints of chest pain. Cough without any sputum production. Chest x-ray showed COPD with superimposed patchy opacities right greater than left. Slight worsening on the right now. Patient is maintained on Lasix 40 mg IV daily and also on heparin drip. Continued on DuoNebs and IV Solu-Medrol 40 IV every 8 hourly. Patient is also on antibiotics in the home of [facility]. Laboratory test showed WBC 21.4 hemoglobin 12.3 and platelets 383 Sodium 133 potassium 4.5 chloride 106 bicarb is 25 BUN 26 and creatinine 0.46 and blood sugar 158 Calcium 8.2 total bili 0.8 AST 42 ALT 22 and alk phos 104 and albumin 2.6. Pulmonary and cardiology is on board. 01/21/2024 Patient is sitting in the chair. Awake alert and oriented x 3. Complains of chest tightness in the midsternal region and also shortness of breath. Requiring oxygen at 4 L via nasal cannula. Patient is being continued on heparin drip due to elevated troponin level/NSTEMI. Patient is also on antibiotics and also IV Solu-Medrol and DuoNebs. Laboratory data showed WBC 18.0 hemoglobin 13.0 and platelets 416, sodium 134 potassium 3.9 chloride 102 bicarb is 29 BUN 29 creatinine 0.53 and blood sugar 166 and calcium 9.1. Cardiology and pulmonary is on board. 01/22/2024 Patient is currently lying in bed. Awake alert and oriented x 3. Requiring 4 L oxygen via nasal cannula. Patient also states that she is feeling anxious and still short of breath with exertion/ambulation. Also still complaining of left retrosternal pain which has been constant.. Blood pressure is marginal. Heparin drip has been discontinued today patient was started on dual antiplatelet therapy. Other laboratory data showed WBC 21.2 hemoglobin 12.9 and platelets 460 Sodium 133 potassium 4.5 chloride 99 bicarb is 29 BUN 28 and creatinine 0.63 and blood sugar 131 and calcium 9.1. Patient is being continued on antibiotics in the form of Zosyn and also IV steroids and DuoNebs. 2D echocardiogram showed severe LV dysfunction with large apical septal and lateral infarct bilateral enlargement. 01/23/2024 Patient is lying in the bed. Awake alert and oriented x 3. No complaints of chest pain. Breathing status remains the same. Requiring 2 L oxygen via nasal cannula. No headache or dizziness or lightheadedness. No fever no chills. Repeat chest x-ray was ordered by pulmonary today. Patient remained on IV Solu-Medrol, antibiotics and was started back on Lasix 40 mg IV daily. Laboratory data showed WBC 22.4 hemoglobin 12.6 and platelets 360, sodium 135 potassium 4.2 chloride 100 bicarb 32 BUN 35 and creatinine 0.48 and blood sugar 99. Cardiology and pulmonary is on board. Current medications reviewed. Objective - Vital Signs Vital signs: Vital Signs Temp 97.7 F 01/23/24 20:00 Pulse 88 01/23/24 20:25 Resp 18 01/23/24 20:00 BP 91/59 01/23/24 20:00 Pulse Ox 92 L 01/23/24 20:00 FiO2 Intake & Output 01/23/24 01/23/24 01/24/24 06:59 18:59 06:59 Intake Total 240 178 Output Total 250 Balance -10 178 Intake: Oral 240 178 Output: Urine 250 Other: Voiding Method External Catheter External Catheter # Voids 3 # Bowel Movements 1 - Exam PHYSICAL EXAMINATION: Patient is lying in the bed comfortably, no acute distress, awake alert and oriented.. HEENT: Normocephalic. Neck is supple. Pupils reactive. Nostrils clear. Oral cavity is moist. Neck reveals no JVD, carotid bruits, or thyromegaly. CHEST EXAMINATION: Trachea is central. Symmetrical expansion. Bilateral prolonged expiration and diminished sounds.. Nonlabored breathing. CARDIAC: Normal S1, S2 with no gallops. No murmurs ABDOMEN: Soft. Bowel sounds normal. No organomegaly. No abdominal bruits. Extremities: reveal no edema. No clubbing or cyanosis Neurologically awake, alert, oriented x3 with well-coordinated movements. No focal deficits noted Skin: No rash or skin lesions. Psychiatric: Coperative. Nonsuicidal Musculoskeletal: No joint swelling or deformity. Normal range of motion. - Labs CBC & Chem 7: 01/23/24 09:16 01/23/24 09:16 Labs: Abnormal Lab Results - Last 24 Hours (Table) 01/23/24 01/23/24 01/23/24 Range/Units 09:16 09:16 11:57 WBC 22.5 H (3.8-10.6) k/uL Neutrophils # 20.6 H (1.3-7.7) k/uL Lymphocytes # 0.8 L (1.0-4.8) k/uL Sodium 135 L (137-145) mmol/L Carbon Dioxide 32 H (22-30) mmol/L BUN 35 H (7-17) mg/dL Creatinine 0.48 L (0.52-1.04) mg/dL POC Glucose (mg/dL) 113 H (70-110) mg/dL 01/23/24 01/23/24 Range/Units 16:36 20:22 WBC (3.8-10.6) k/uL Neutrophils # (1.3-7.7) k/uL Lymphocytes # (1.0-4.8) k/uL Sodium (137-145) mmol/L Carbon Dioxide (22-30) mmol/L BUN (7-17) mg/dL Creatinine (0.52-1.04) mg/dL POC Glucose (mg/dL) 196 H 132 H (70-110) mg/dL Assessment and Plan Assessment: Acute on chronic hypoxic respiratory failure secondary to COPD exacerbation Pneumonia with bilateral patchy infiltrates and sepsis. Procalcitonin level is 0.6 Acute Non-ST elevated PA Acute CHF with reduced ejection fraction Ongoing nicotine addiction Rheumatoid arthritis Hypertension History of pleural effusions and thoracentesis several years ago Moderate to severe protein calorie malnutrition GI and DVT prophylaxis Plan: Continue telemetry. Heparin drip has been discontinued and patient was started on dual antiplatelets. Cardiology recommends angiogram but patient does not wish to proceed at this time.. 2D echocardiogram showed reduced ejection fraction.. Continue with DuoNebs and IV Solu-Medrol and oxygen supplementation. Continue with antibiotics, Zosyn. Continue with oxygen supplementation of 2 L via nasal cannula. Patient will be continued on aspirin, Plavix, metoprolol, statins and lisinopril. Follow-up repeat chest x-ray Follow-up CBC and BMP tomorrow. Prognosis guarded. Pulmonary and cardiology is on board. Time with Patient: Greater than 30
[2024-01-24 06:15] LABS: Glucose,Whole Blood 90 mg/dL (70-110)
[2024-01-24] MEDS: predniSONE 20 MG TAB PO SCH (08:37)
[2024-01-24 10:31] LABS: African American GFR (CKD) >90 (>60 ml/min/1.73 sqM); Anion Gap 3 mmol/L; Blood Urea Nitrogen 38 mg/dL (7-17); Calcium 8.8 mg/dL (8.4-10.2); Carbon Dioxide 33 mmol/L (22-30); Chloride 99 mmol/L (98-107); Glucose 82 mg/dL (74-99); Non-African American GFR(CKD) >90 (>60 ml/min/1.73 sqM); Potassium 4.4 mmol/L (3.5-5.1); Sodium 135 mmol/L (137-145)
[2024-01-24 10:37] LABS: Basophils % (A) 0 %; Eosinophils # (A) 0.2 k/uL (0-0.7); Eosinophils % (A) 1 %; HCT 40.3 % (34.0-46.0); HGB 12.7 gm/dL (11.4-16.0); Lymphocytes % (A) 4 %; MCH 30.9 pg (25.0-35.0); MCHC 31.4 g/dL (31.0-37.0); MCV 98.3 fL (80.0-100.0); Mean Platelet Volume 7.7; Monocytes # (A) 0.7 k/uL (0-1.0); Monocytes % (A) 3 %; Neutrophils # (A) 21.4 k/uL (1.3-7.7); Neutrophils % (A) 91 %; Platelet Count 344 k/uL (150-450); RDW 14.5 % (11.5-15.5); WBC 23.5 k/uL (3.8-10.6)
[2024-01-24 11:36] LABS: Glucose,Whole Blood 99 mg/dL (70-110)
[2024-01-24] MEDS ORDERED: ALPRAZolam 0.25 MG TAB PO PRN (12:33)
[2024-01-24] MEDS ORDERED: NITROGLYCERIN SL TABS 0.4 MG TAB SUBLINGUAL PRN (12:33)
[2024-01-24] MEDS: ASPIRIN 325 MG TAB PO STA (12:40)
[2024-01-24] MEDS: ATORVASTATIN 80 MG TAB PO STA (12:46)
[2024-01-24] MEDS: SODIUM CHLORIDE 0.9% 1,000 ML in EMPTY BAG 1 BAG IV SCH (12:47)
[2024-01-24] MEDS ORDERED: LIDOCAINE 1% INJ 10MG/ML (20 ML MDV) ONE (13:29)
[2024-01-24] MEDS ORDERED: VERAPAMIL 2.5 MG/ML 2 ML AMP ONE (13:29)
[2024-01-24] MEDS ORDERED: HEPARIN SODIUM 1,000 UN/ML (10ML VL) ONE (13:29)
[2024-01-24] MEDS: MIDAZOLAM 2 MG/2 ML VIAL IVP ONE (13:36)
--- NOTE | 2024-01-24 13:36 | P.PN ---
Subjective Progress Note Date: 01/24/24 Principal diagnosis: Myocardial infarction. This is a 73-year-old female patient with a history of chronic obstructive pulmonary disease, recently requiring home oxygen following her recent admission, hypertension, toyed arthritis, chronic and ongoing tobacco dependence. She was just discharged on January 13, 2024 following a COPD exacerbation atypical chest. She did continue her Augmentin, bronchodilators and a prednisone taper. She was to follow-up in our office in 1 week. She presented here to the emergency room yesterday 01/19/2024 with complaints again of increasing shortness of breath, chest pain, cough and congestion. Chest x- ray does reveal evidence of COPD and patchy infiltrate traits, right greater than left. Increased from previous. White count 22.9. Hemoglobin 13.8. Platelets 358. Sodium 132. Potassium 4.7. Bicarb 28. BUN 45. Creatinine 0.58. Glucose 169. AST 64. ALT 24. Troponin 4.180. proBNP 21,100. Viral screen was negative. She had been initiated on a heparin drip. An echocardiogram revealed a preserved left ventricular systolic function with ejection fraction of 55% and no significant aortic valve disease. She is seen today in consultation in the emergency department. She is awake and alert in no acute distress. She is dyspneic with conversation. Dyspneic with minimal exertion. Currently maintaining O2 saturations in the 90s on 3 L/min per nasal cannula. She is afebrile. Hemodynamically stable. The patient does appear to have cardiac injury but refused to undergo cardiac catheterization per cardiology consultation. Medical treatment will be recommended. She has also requested a DNR/DNI CODE STATUS. Progress note dated January 20, 2024. The patient is seen today in room 380. Currently, the patient is on O2 at 4 L by nasal cannula. She is receiving IV heparin, and saline at 20 cc an hour. Her procalcitonin level was 0.62. She continues on Zosyn. Her labs include a white count 21.4, hemoglobin 12.3, hematocrit 38.2, and a platelet count of 383,000. The patient's PTT was 48.9. Sodium 133, potassium 4.5, chlorides 106, CO2 25, BUN 26, creatinine 0.46. The glucose is 158. Calcium 8.2. Blood cu ltures are showing no growth. Chest x-ray shows some bilateral opacities, right greater than left, on top of changes of COPD. Progress note dated January 21, 2024. The patient was again seen in room 380. Currently, she is on 4 L of oxygen by nasal cannula. The patient is getting saline at 10 cc an hour, and IV heparin via protocol. The patient did not have any complaints today. She is laying nearly flat in bed. White count 18, hemoglobin 13, hematocrit 42.5, platelet count 416,000. PTT is 93.6. Sodium 134, potassium 3.9, chlorides 102, CO2 29, BUN 29 and creatinine 0.53. Glucose is 163. Calcium is 9.1. Blood cultures are currently negative. Chest x-ray shows patchy bilateral opacities. Progress note dated January 22, 2024. 73-year-old female seen today in room 380. Currently, the patient is on 4 L of oxygen by nasal cannula. She is getting saline at 10 cc an hour. She denies any complaints today. Currently, white count 21.2, hemoglobin 12.9, hematocrit 41.6, and platelet count 460,000. Sodium 133, potassium 4.5, chloride 99, CO2 29, BUN 28, and creatinine 0.63. Glucose is 258. Calcium is 9.1. Blood cultures are currently negative. Progress note dated January 23, 2024. 73-year-old female seen today in room 380. Currently, the patient is on O2 at 2 L. Her Solu-Medrol will be converted to prednisone 40 mg a day. Will order chest x-ray on the patient. She is on 2 L. She is getting saline at 10 cc an hour. Her daughter is in the room, and we speak to her about her mother. Current labs include a white count 22.5, hemoglobin 12.6, hematocrit 38.6, and a platelet count of 360,000. Sodium 135, potassium 4.2, chlorides 100, CO2 32, BUN 35, creatinine 0.48. Glucose is 113. Calcium is 8.9. Progress note dated January 24, 2024. 73-year-old female seen in room 380. The patient is currently on 3 L of oxygen. She is getting saline at 20 cc an hour. She continues on Zosyn. She was admitted with a diagnosis of non-ST segment elevation myocardial infarction, CHF/fluid overload, possible pneumonia. Initially, the patient refused a cardiac catheterization, but apparently she is change her mind, and will have a cardiac catheterization later this afternoon. Current labs include a white count 23.5, hemoglobin 12.7, hematocrit 40.3, and a platelet count of 344,000. Sodium 135, potassium 4.4, chlorides 99, CO2 33, BUN 38, and creatinine 0.61. Glucose is 82. Calcium is 8.8. Blood cultures are negative. Chest x-ray from yesterday shows cardiomegaly, and some interstitial edema. Objective - Vital Signs Vital signs: Vital Signs Temp 97.7 F 01/24/24 08:30 Pulse 84 01/24/24 12:26 Resp 17 01/24/24 11:11 BP 93/51 01/24/24 11:11 Pulse Ox 95 01/24/24 11:11 FiO2 Intake & Output 01/23/24 01/24/24 01/24/24 18:59 06:59 18:59 Intake Total 178 360 Output Total 250 Balance 178 110 Intake: Intake, IV Titration 360 Amount Piperacillin-Tazobactam 3 200 .375 gm In Sodium Chloride 0.9% 100 ml @ 25 mls/hr IVPB Q8H [facility] Rx#: [id number] Sodium Chloride 0.9% 1, 160 000 ml @ 20 mls/hr IV . Q24H [facility] Rx#:[id number] Oral 178 Output: Urine 250 Other: Voiding Method External Catheter External Catheter External Catheter # Voids 3 # Bowel Movements 1 - Exam No acute distress, oriented 3. No acute distress. Currently on 3 L by nasal cannula. HEENT examination is grossly unremarkable. Mucous membranes are moist. No oral lesions. Neck supple. Full range of motion. No adenopathy thyromegaly or neck vein distention. Cardiovascular examination reveals regular rhythm rate. S1-S2 normal. No S3 or S4. No discernible murmur noted. Heart sounds are distant. Heart rate is 84 bpm. Lungs reveal rhonchi and crackles. Breath sounds equal. 3 L saturation is 95%. Abdomen soft bowel sounds are heard. No masses or tenderness. Extremities are intact. No cyanosis clubbing or edema. Skin is without rash or lesion. Neurologic examination is brief but nonfocal. - Labs CBC & Chem 7: 01/24/24 09:28 01/24/24 09:28 Labs: Abnormal Lab Results - Last 24 Hours (Table) 01/23/24 01/23/24 01/24/24 Range/Units 16:36 20:22 09:28 WBC 23.5 H (3.8-10.6) k/uL Neutrophils # 21.4 H (1.3-7.7) k/uL Sodium (137-145) mmol/L Carbon Dioxide (22-30) mmol/L BUN (7-17) mg/dL POC Glucose (mg/dL) 196 H 132 H (70-110) mg/dL 01/24/24 Range/Units 09:28 WBC (3.8-10.6) k/uL Neutrophils # (1.3-7.7) k/uL Sodium 135 L (137-145) mmol/L Carbon Dioxide 33 H (22-30) mmol/L BUN 38 H (7-17) mg/dL POC Glucose (mg/dL) (70-110) mg/dL Microbiology - Last 24 Hours (Table) 01/19/24 02:10 Blood Culture - Final Blood 01/19/24 01:55 Blood Culture - Final Blood Assessment and Plan Assessment: Chest pain in a patient found to have elevated troponins and EKG changes. Acute exacerbation of chronic obstructive pulmonary disease. Chronic and ongoing tobacco dependence. Rheumatoid arthritis. History of previous pleural effusions attributed to rheumatoid arthritis with previous thoracentesis. Hypertension. Anorexia/cachexia syndrome. Plan: Plan dated January 20, 2024. The patient is seen today in room 380. The patient declined cardiac catheterization. She continues on 4 L by nasal cannula, saline at 20 cc an h our, IV heparin, and Zosyn. Chest x-ray does show some patchy bilateral infiltrates. Procalcitonin level was 0.62. Labs, x-rays, and medications are reviewed. We will continue to follow the patient, and make recommendations along the way. Prognosis is currently guarded. The patient is a DO NOT RESUSCITATE/DO NOT INTUBATE patient. Plan dated January 21, 2024. The patient was seen today in room 380. Currently, the patient is on 4 L of oxygen. She is getting saline at 10 cc an hour. She is also receiving IV heparin via protocol. Labs, x-rays, medications are reviewed. We will continue to follow the patient, make recommendations along the way. The patient is a no code patient. The patient did refuse cardiac catheterization. Prognosis is guarded. Plan dated January 22, 2024. The patient is seen today in room 380. The patient is currently on 4 L of oxygen. Labs, x-rays, and medications are reviewed. The patient was apparently offered a cardiac catheterization, but did not want to have one. The patient continues on usual medications, including Lipitor, Symbicort, Plavix, Lasix, insulin, updrafts, Solu-Medrol, and Zosyn. We will continue to follow make recommendations along the way. The patient's overall prognosis remains very guarded. Plan dated January 23, 2024. The patient was seen today in room 380. The patient's daughter is in the room. She continues on oxygen at 4 L by nasal cannula. Saturations are 93%. On room air, her saturations are 81%. The patient will have a portable chest x-ray ordered. In addition, her Solu-Medrol was discontinued in favor of prednisone 40 mg a day. Chest x-ray shows cardiomegaly, and diffuse interstitial changes. Will continue to follow the patient, and make recommendations along the way. Prognosis is certainly guarded. Plan dated January 24, 2024. Previously, the patient refused cardiac catheterization. Apparently now she agrees to cardiac catheterization. Will be done this afternoon. Labs, x-rays, medications are reviewed. The Solu-Medrol was discontinued in favor of prednisone. We will continue to follow the patient, make recommendations along the way. Prognosis is guarded. Time with Patient: Less than 30
[2024-01-24] MEDS: LIDOCAINE 1% INJ 10MG/ML (20 ML MDV) SQ ONE (13:37)
[2024-01-24] MEDS: VERAPAMIL SYRINGE (5 MG/10 ML) INTRAARTER ONE (13:37)
[2024-01-24] MEDS: IV FLUID CONTINUATION 400 ML IV ONE (13:43)
[2024-01-24] MEDS: HEPARIN SODIUM 1,000 UN/ML (10ML VL) IVP ONE (13:43)
[2024-01-24] MEDS ORDERED: RX INFO: IV CONTRAST WAS GIVEN 1 EACH MISC MISCELLANE PRN (13:55)
[2024-01-24] MEDS: IOPAMIDOL-370 100ML BTL INJ ONE (13:56)
--- NOTE | 2024-01-24 14:00 | P.PCN ---
Date of Procedure: 01/24/24 Operative Findings: CARDIAC CATHETERIZATION PERFORMING PHYSICIAN: Partha Eller MD, RPVI PROCEDURE PERFORMED: 1. Selective right and left coronary angiogram 2. Left heart catheterization INDICATION: Acute non-ST elevation myocardial infarction COMPLICATION: None APPROACH: Right radial artery LEVEL OF SEDATION: Moderate with a sedation length of 14 minutes PROCEDURE DESCRIPTION: After obtaining an informed consent, the patient was brought to cardiac trestle mainternance laborer. Local anesthesia was performed using lidocaine subcutaneously. The right radial artery was cannulated using Seldinger technique, the guidewire passed easily, following that we advanced a 5-Mauritian sheath dilator assembly, the wire and dilator were removed and sheath was flushed. Following that, 2 mg of verapamil along with 3000 unit heparin were given. Selective right and left coronary angiogram using a 6-Mauritian JR4 and JL 4 c atheters. Following that we did left heart catheterization using 6-Mauritian pigtail catheter. The procedure was completed there was no complication. SELECTIVE CORONARY ANGIOGRAM: The right coronary artery: Large-caliber vessel and a dominant vessel and appears to have mild disease only and calcified vessel Left main: Calcified with mild disease only The left circumflex: Large-caliber vessel nondominant vessel. The LCx distally is occluded in the AV groove but becomes small caliber vessel and seems to be chronically occluded. Gives rise into an OM which has mild disease only The left anterior descending artery: Large-caliber vessel with mild disease only and gives rise into the first and second diagonal branches and both appear to have mild disease only HEMODYNAMICS: LVEDP was 4 mmHg with no significant gradient across aortic valve CONCLUSION: 1. 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 Overall calcified right and left coronary system 3. Normal left-sided filling pressure POSTPROCEDURE MANAGEMENT: Medical treatment
[2024-01-24] MEDS: SODIUM CHLORIDE 0.9% 1,000 ML IV SCH (15:53)
[2024-01-24 16:46] LABS: Glucose,Whole Blood 154 mg/dL (70-110)
--- NOTE | 2024-01-24 16:46 | P.PN ---
Subjective Progress Note Date: 01/24/24 73-year-old female patient with a history of chronic obstructive pulmonary disease, recently requiring home oxygen following her recent admission, hypertension, toyed arthritis, chronic and ongoing tobacco dependence. She was just discharged on January 13, 2024 following a COPD exacerbation atypical chest. She did continue her Augmentin, bronchodilators and a prednisone taper. She was to follow-up in our office in 1 week. She presented here to the emergency room yesterday 01/19/2024 with complaints again of increasing shortness of breath, chest pain, cough and congestion. Chest x-ray does reveal evidence of COPD and patchy infiltrate traits, right greater than left. Increased from previous. Wh ite count 22.9. Hemoglobin 13.8. Platelets 358. Sodium 132. Potassium 4.7. Bicarb 28. BUN 45. Creatinine 0.58. Glucose 169. AST 64. ALT 24. Troponin 4.180. proBNP 21,100. Viral screen was negative. She had been initiated on a heparin drip. An echocardiogram revealed a preserved left ventricular systolic function with ejection fraction of 55% and no significant aortic valve disease. She is seen today in consultation in the emergency department. She is awake and alert in no acute distress. She is dyspneic with conversation. Dyspneic with minimal exertion. Currently maintaining O2 saturations in the 90s on 3 L/min per nasal cannula. She is afebrile. Hemodynamically stable. The patient does appear to have cardiac injury but refused to undergo cardiac catheterization per cardiology consultation. Medical treatment will be recommended. She has also requested a DNR/DNI CODE STATUS. Objective - Vital Signs Vital signs: Vital Signs Temp 97.7 F 01/24/24 08:30 Pulse 78 01/24/24 11:11 Resp 17 01/24/24 11:11 BP 93/51 01/24/24 11:11 Pulse Ox 95 01/24/24 11:11 FiO2 Intake & Output 01/23/24 01/24/24 01/24/24 18:59 06:59 18:59 Intake Total 178 360 Output Total 250 Balance 178 110 Intake: Intake, IV Titration 360 Amount Piperacillin-Tazobactam 3 200 .375 gm In Sodium Chloride 0.9% 100 ml @ 25 mls/hr IVPB Q8H [facility] Rx#: [id number] Sodium Chloride 0.9% 1, 160 000 ml @ 20 mls/hr IV . Q24H [facility] Rx#:[id number] Oral 178 Output: Urine 250 Other: Voiding Method External Catheter External Catheter External Catheter # Voids 3 # Bowel Movements 1 - Exam Patient is lying in the bed comfortably, no acute distress, awake alert and oriented.. HEENT: Normocephalic. Neck is supple. Pupils reactive. Nostrils clear. Oral cavity is moist. Neck reveals no JVD, carotid bruits, or thyromegaly. CHEST EXAMINATION: Trachea is central. Symmetrical expansion. Bilateral prolonged expiration and diminished sounds.. Nonlabored breathing. CARDIAC: Normal S1, S2 with no gallops. No murmurs ABDOMEN: Soft. Bowel sounds normal. No organomegaly. No abdominal bruits. Extremities: reveal no edema. No clubbing or cyanosis Neurologically awake, alert, oriented x3 with well-coordinated movements. No focal deficits noted Skin: No rash or skin lesions. Psychiatric: Coperative. Nonsuicidal Musculoskeletal: No joint swelling or deformity. Normal range of motion. - Labs CBC & Chem 7: 01/24/24 09:28 01/24/24 09:28 Labs: Abnormal Lab Results - Last 24 Hours (Table) 01/23/24 01/23/24 01/23/24 Range/Units 11:57 16:36 20:22 WBC (3.8-10.6) k/uL Neutrophils # (1.3-7.7) k/uL Sodium (137-145) mmol/L Carbon Dioxide (22-30) mmol/L BUN (7-17) mg/dL POC Glucose (mg/dL) 113 H 196 H 132 H (70-110) mg/dL 01/24/24 01/24/24 Range/Units 09:28 09:28 WBC 23.5 H (3.8-10.6) k/uL Neutrophils # 21.4 H (1.3-7.7) k/uL Sodium 135 L (137-145) mmol/L Carbon Dioxide 33 H (22-30) mmol/L BUN 38 H (7-17) mg/dL POC Glucose (mg/dL) (70-110) mg/dL Assessment and Plan Assessment: Acute on chronic hypoxic respiratory failure secondary to COPD exacerbation Pneumonia with bilateral patchy infiltrates and sepsis. Procalcitonin level is 0.6 Acute Non-ST elevated MO Acute CHF with reduced ejection fraction Ongoing nicotine addiction Rheumatoid arthritis Hypertension History of pleural effusions and thoracentesis several years ago Moderate to severe protein calorie malnutrition GI and DVT prophylaxis Plan: Continue telemetry. Heparin drip has been discontinued and patient was started on dual antiplatelets. Cardiology recommends angiogram but patient does not wish to proceed at this time.. 2D echocardiogram showed reduced ejection fraction.. Continue with DuoNebs and IV Solu-Medrol and oxygen supplementation. Continue with antibiotics, Zosyn. Continue with oxygen supplementation of 2 L via nasal cannula. Patient will be continued on aspirin, Plavix, metoprolol, statins and lisinopril. Follow-up repeat chest x-ray Follow-up CBC and BMP tomorrow. Prognosis guarded. Pulmonary and cardiology is on board.
[2024-01-24 18:21] VITALS: BMI 21.4
[2024-01-24 21:04] LABS: Glucose,Whole Blood 171 mg/dL (70-110)
--- NOTE | 2024-01-24 21:37 | P.PN ---
Subjective Progress Note Date: 01/24/24 Principal diagnosis: Reason for follow-up is pneumonia and leukocytosis Patient is a 73-year-old female with a past medical history significant for COPD hypertension rheumatoid arthritis and heart failure presenting to [facility] ER for evaluation of increasing shortness of breath chest pain cough, patient did have a low-grade fever mild elevated procalcitonin chest x-ray with the patient recently right and left lower lung concerning for possible pneumonia. On today's evaluation that is 01/24/2024, the patient continues to be afebrile, the patient is on 3 L nasal cannula oxygen and breathing comfortably, the Pt denies having any chest pain or any worsening cough, the patient denies having any abdominal pain no vomiting or any diarrhea has been reported by the nursing staff. Patient white count of 23.5, creatinine 0.61 Objective - Vital Signs Vital signs: Vital Signs Temp 97.7 F 01/24/24 08:30 Pulse 84 01/24/24 16:05 Resp 15 01/24/24 15:55 BP 79/52 01/24/24 15:55 Pulse Ox 93 L 01/24/24 15:55 FiO2 Intake & Output 01/23/24 01/24/24 01/24/24 18:59 06:59 18:59 Intake Total 178 360 100 Output Total 250 Balance 178 110 100 Intake: IV 100 Intake, IV Titration 360 Amount Piperacillin-Tazobactam 3 200 .375 gm In Sodium Chloride 0.9% 100 ml @ 25 mls/hr IVPB Q8H [facility] Rx#: [id number] Sodium Chloride 0.9% 1, 160 000 ml @ 20 mls/hr IV . Q24H [facility] Rx#:[id number] Oral 178 Output: Urine 250 Other: Voiding Method External Catheter External Catheter External Catheter # Voids 3 # Bowel Movements 1 - Exam GENERAL DESCRIPTION: An elderly female lying in bed in no distress RESPIRATORY SYSTEM: Unlabored breathing , decreased intensity of breath sounds, no wheeze HEART: S1 S2 regular rate and rhythm , ABDOMEN: Soft , no tenderness EXTREMITIES: No edema feet - Labs CBC & Chem 7: 01/24/24 09:28 01/24/24 09:28 Labs: Abnormal Lab Results - Last 24 Hours (Table) 01/23/24 01/24/24 01/24/24 Range/Units 20:22 09:28 09:28 WBC 23.5 H (3.8-10.6) k/uL Neutrophils # 21.4 H (1.3-7.7) k/uL Sodium 135 L (137-145) mmol/L Carbon Dioxide 33 H (22-30) mmol/L BUN 38 H (7-17) mg/dL POC Glucose (mg/dL) 132 H (70-110) mg/dL Microbiology - Last 24 Hours (Table) 01/19/24 02:10 Blood Culture - Final Blood 01/19/24 01:55 Blood Culture - Final Blood Assessment and Plan (1) Pneumonia Current Visit: Yes Status: Acute Code(s): J18.9 - PNEUMONIA, UNSPECIFIED ORGANISM SNOMED Code(s): 438540006 (2) Leukocytosis Current Visit: Yes Status: Acute Code(s): D72.829 - ELEVATED WHITE BLOOD CELL COUNT, UNSPECIFIED SNOMED Code(s): 379961850 Plan: 1patient presented to hospital with increasing shortness of breath which is likely multifactorial in this patient will to have a cough elevated white count mildly elevated procalcitonin with the opacities in the right upper and left lower lobe concerning for pneumonia with question of possible gram-negative questionable aspiration 2sputum not collected blood cultures are negative 3patient is afebrile, worsening leukocytosis likely related to steroids as no evidence of any worsening clinical condition and will monitor closely continue with empiric Zosyn Dictation was produced using [employer] dictation software. please excuse any grammatical, word or spelling errors. Time with Patient: Less than 30
--- NOTE | 2024-01-24 23:40 | PN ---
PROGRESS NOTE Susana has a history of COPD, hypertension, diabetes, dyslipidemia, and coronary artery disease. She complains of persistent chest discomfort and the EKG showed ischemic changes. She is to undergo cardiac catheterization today. Her EF is poor at 25% to 30%. PHYSICAL EXAMINATION: GENERAL: Afebrile. VITAL SIGNS: Stable. CHEST: Reveals diminished air entry at the bases. HEART: Reveals first and second heart sounds. Systolic murmur at the apex. ABDOMEN: Soft. EXTREMITIES: Did not reveal any edema. LABORATORIES: Show a potassium of 4.4, creatinine 0.6. White cell count is elevated. ASSESSMENT AND PLAN: Persistent chest pain, cardiomyopathy, possible Takotsubo syndrome. PLAN: Patient will have a catheterization today. MMODL / IJN: [id number] /
[2024-01-25 06:21] LABS: Glucose,Whole Blood 89 mg/dL (70-110)
[2024-01-25] MEDS ORDERED: HEPARIN SODIUM,PORCINE (1 ML) 2,500 UNIT in SODIUM CHLORIDE 0.9% 250 ML IRRIGATION PRN (07:00)
[2024-01-25] MEDS ORDERED: HEPARIN SODIUM,PORCINE 10,000 UNIT in SODIUM CHLORIDE 0.9% 1,000 ML IRRIGATION PRN (07:00)
[2024-01-25 07:58] LABS: Basophils % (A) 0 %; Eosinophils # (A) 0.3 k/uL (0-0.7); Eosinophils % (A) 2 %; HCT 36.3 % (34.0-46.0); HGB 11.2 gm/dL (11.4-16.0); Lymphocytes # (A) 0.9 k/uL (1.0-4.8); Lymphocytes % (A) 5 %; MCH 30.3 pg (25.0-35.0); MCHC 30.8 g/dL (31.0-37.0); MCV 98.3 fL (80.0-100.0); Mean Platelet Volume 7.6; Monocytes % (A) 5 %; Neutrophils # (A) 17.4 k/uL (1.3-7.7); Neutrophils % (A) 88 %; Platelet Count 299 k/uL (150-450); RBC 3.69 m/uL (3.80-5.40); RDW 14.9 % (11.5-15.5); WBC 19.7 k/uL (3.8-10.6)
[2024-01-25 08:18] LABS: African American GFR (CKD) >90 (>60 ml/min/1.73 sqM); Anion Gap 2 mmol/L; Blood Urea Nitrogen 33 mg/dL (7-17); Calcium 8.1 mg/dL (8.4-10.2); Carbon Dioxide 33 mmol/L (22-30); Chloride 101 mmol/L (98-107); Glucose 76 mg/dL (74-99); Non-African American GFR(CKD) >90 (>60 ml/min/1.73 sqM); Potassium 3.7 mmol/L (3.5-5.1); Sodium 136 mmol/L (137-145)
[2024-01-25] MEDS: ALPRAZolam 0.5 MG TAB PO PRN (09:03)
[2024-01-25 11:41] LABS: Glucose,Whole Blood 158 mg/dL (70-110)
--- NOTE | 2024-01-25 11:54 | P.PN ---
Subjective Progress Note Date: 01/25/24 Chief complaint: Chest discomfort and shortness of breath History of present illness: The patient is a very pleasant 73-year-old female patient with a past medical history significant for smoking and chronic obstructive pulmonary disease and no cardiovascular history from before including coronary artery disease or diabetes or hypertension or dyslipidemia. She just was discharged from the hospital recently after she was admitted with a COPD exacerbation. During her hospital stay she underwent an echo and that showed normal LV systolic function. She was brought to the hospital again by her son complaining of shortness of breath and the chest discomfort started within the last 24 hours. She underwent further investigation including an EKG and that showed sinus mechanism with ST changes anteriorly concerning for severe underlying coronary artery disease. Also she underwent a blood work including troponin came in to be abnormal and consistent with acute coronary syndrome. NT proBNP came in to be elevated as well around 21,000. Her hemoglobin and kidney function and electrolytes are within normal limits with a chest x-ray showed finding consistent with COPD and possibly left pleural effusion. The patient was seen and evaluated this morning. She is having ongoing chest discomfort about 8/10 in intensity. Currently she is on heparin. She stated that the chest discomfort has came down slightly after she was started on heparin. No known history of coronary artery disease or congestive heart failure or any cardiac arrhythmia and never seen by any binder lockstitch before. She was advised to undergo a heart catheterization given the ongoing chest discomfort and abnormal blood work with abnormal troponin which is consistent with acute coronary syndrome in her case but the patient refused and she would like medical treatment only. With that being said I am going to start the patient on dual antiplatelet therapy along with a statin along with beta-kenn. She does not seems in any overt congestive heart failure at this point. Examination revealed distant heart sounds with regular rhythm and diminished breathing sounds bilaterally. No edema was noted. 01/19 Patient states that she does have chest pain with movement but is fine when she is laying down. She was up in a chair for about an hour and felt very anxious a nd had pain. She feels the pain is about the same as when she came in to the hospital. Discussed results of the testing and recommendations for cardiac catheterization but patient is very adamant that she only wants to try medications at this time. She is on a heparin drip. Echocardiogram has been obtained and report is pending. 01/20 Patient states that she continues to have chest pain in the midsternal area. She states that [place] seems to help her a little bit. But it does not go away. Blood pressure 95/63, heart rate 89, pulse ox 93% on 4 L nasal cannula. Echocardiogram revealed EF of 25 to 30%. Results of the echocardiogram reviewed with the patient. She does state that her symptoms started with a stressful event so this could be related to Takotsubo cardiomyopathy. Patient offered cardiac catheterization again which she declined. 01/21 Patient states she still has a left chest pain but felt that when she got out of bed she was feeling better. The pain is worse with movement from lying to a sitting position. She states she walked a little bit last evening and sat in a chair for about 1 hour. She states she feels very weak. She did receive [place] about 1 hour ago. Blood pressure 89/53, heart rate 73, pulse ox 95% on 4 L nasal cannula. Repeat blood work reveals WBC 21, hemoglobin 12.9. BUN 28 creatinine 0.63. Heparin drip was discontinued yesterday. Patient maintained on dual antiplatelet therapy, statin, and beta-kenn. 01/24 Yesterday, patient underwent cardiac catheterization with Dr. 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 Overall calcified right and left coronary system. Normal left-sided filling pressure. Plan was for medical management. Blood pressure 121/64, heart rate in the 70s. Pulse ox is 97% on 2 L nasal cannula. Repeat blood work reveals hemoglobin 11.2. BUN 33 creatinine 0.55, potassium 3.7. Physical Examination Gen: This is a 73-year-old female in no acute distress. HEENT: Head is atraumatic, normocephalic. Pupils equal, round. Sclerae is anicteric. NECK: Supple. No JVD. No lymphadenopathy. No thyromegaly. LUNGS: Clear to auscultation. No wheezes or rhonchi. No intercostal retra ctions. HEART: Regular rate and rhythm. No murmur. ABDOMEN: Soft. Bowel sounds are present. No masses. No tenderness. EXTREMITIES: No pedal edema. No calf tenderness. NEUROLOGICAL: Patient is awake, alert and oriented x3. Assessment Acute hypoxic respiratory failure likely secondary to COPD exacerbation Non-ST elevated myocardial infarction versus possible Takotsubo cardiomyopathy Chronic obstructive pulmonary disease Smoking and the patient is actively smoker Plan Continue medical management for the acute coronary syndrome Continue current cardiac medications: Aspirin 81 mg daily, atorvastatin 40 mg daily, Plavix 75 mg daily, lisinopril 10 mg daily, Toprol-XL 25 mg twice daily Transition IV Lasix to oral 40 mg daily Follow-up with the patient Nurse practitioner note has been reviewed, I agree with documented findings and plan of care. Patient was seen and examined. Objective - Vital Signs Vital signs: Vital Signs Temp 97.9 F 01/25/24 04:00 Pulse 76 01/25/24 09:25 Resp 18 01/25/24 04:00 BP 128/64 01/25/24 04:00 Pulse Ox 97 01/25/24 09:14 FiO2 Intake & Output 01/24/24 01/25/24 01/25/24 18:59 06:59 18:59 Intake Total 100 Output Total 300 400 Balance -200 -400 Weight 49.895 kg Intake: IV 100 Output: Urine 300 400 Straight 400 Other: Voiding Method External Catheter External Catheter - Labs CBC & Chem 7: 01/25/24 06:42 01/25/24 06:42 Labs: Abnormal Lab Results - Last 24 Hours (Table) 01/24/24 01/24/24 01/24/24 Range/Units 09:28 09:28 16:44 WBC 23.5 H (3.8-10.6) k/uL RBC (3.80-5.40) m/uL Hgb (11.4-16.0) gm/dL MCHC (31.0-37.0) g/dL Neutrophils # 21.4 H (1.3-7.7) k/uL Lymphocytes # (1.0-4.8) k/uL Sodium 135 L (137-145) mmol/L Carbon Dioxide 33 H (22-30) mmol/L BUN 38 H (7-17) mg/dL POC Glucose (mg/dL) 154 H (70-110) mg/dL Calcium (8.4-10.2) mg/dL 01/24/24 01/25/24 01/25/24 Range/Units 20:59 06:42 06:42 WBC 19.7 H (3.8-10.6) k/uL RBC 3.69 L (3.80-5.40) m/uL Hgb 11.2 L (11.4-16.0) gm/dL MCHC 30.8 L (31.0-37.0) g/dL Neutrophils # 17.4 H (1.3-7.7) k/uL Lymphocytes # 0.9 L (1.0-4.8) k/uL Sodium 136 L (137-145) mmol/L Carbon Dioxide 33 H (22-30) mmol/L BUN 33 H (7-17) mg/dL POC Glucose (mg/dL) 171 H (70-110) mg/dL Calcium 8.1 L (8.4-10.2) mg/dL Microbiology - Last 24 Hours (Table) 01/19/24 02:10 Blood Culture - Final Blood 01/19/24 01:55 Blood Culture - Final Blood
--- NOTE | 2024-01-25 14:39 | P.PN ---
Subjective Progress Note Date: 01/25/24 73-year-old female patient with a history of chronic obstructive pulmonary disease, recently requiring home oxygen following her recent admission, hypertension, toyed arthritis, chronic and ongoing tobacco dependence. She was just discharged on January 13, 2024 following a COPD exacerbation atypical chest. She did continue her Augmentin, bronchodilators and a prednisone taper. She was to follow-up in our office in 1 week. She presented here to the emergency room yesterday 01/19/2024 with complaints again of increasing shortness of breath, chest pain, cough and congestion. Chest x-ray does reveal evidence of COPD and patchy infiltrate traits, right greater than left. Increased from previous. Wh ite count 22.9. Hemoglobin 13.8. Platelets 358. Sodium 132. Potassium 4.7. Bicarb 28. BUN 45. Creatinine 0.58. Glucose 169. AST 64. ALT 24. Troponin 4.180. proBNP 21,100. Viral screen was negative. She had been initiated on a heparin drip. An echocardiogram revealed a preserved left ventricular systolic function with ejection fraction of 55% and no significant aortic valve disease. She is seen today in consultation in the emergency department. She is awake and alert in no acute distress. She is dyspneic with conversation. Dyspneic with minimal exertion. Currently maintaining O2 saturations in the 90s on 3 L/min per nasal cannula. She is afebrile. Hemodynamically stable. The patient does appear to have cardiac injury but refused to undergo cardiac catheterization per cardiology consultation. Medical treatment will be recommended. She has also requested a DNR/DNI CODE STATUS. 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; calcified right and left coronary system with normal left-sided filling pressure; current management is recommended Objective - Vital Signs Vital signs: Vital Signs Temp 97.9 F 01/25/24 08:00 Pulse 76 01/25/24 09:25 Resp 20 01/25/24 08:00 BP 121/64 01/25/24 08:00 Pulse Ox 97 01/25/24 09:14 FiO2 Intake & Output 01/24/24 01/25/24 01/25/24 18:59 06:59 18:59 Intake Total 100 Output Total 300 400 Balance -200 -400 Weight 49.895 kg Intake: IV 100 Output: Urine 300 400 Straight 400 Other: Voiding Method External Catheter External Catheter External Catheter - Exam Patient is lying in the bed comfortably, no acute distress, awake alert and oriented.. HEENT: Normocephalic. Neck is supple. Pupils reactive. Nostrils clear. Oral cavity is moist. Neck reveals no JVD, carotid bruits, or thyromegaly. CHEST EXAMINATION: Trachea is central. Symmetrical expansion. Bilateral prolonged expiration and diminished sounds.. Nonlabored breathing. CARDIAC: Normal S1, S2 with no gallops. No murmurs ABDOMEN: Soft. Bowel sounds normal. No organomegaly. No abdominal bruits. Extremities: reveal no edema. No clubbing or cyanosis Neurologically awake, alert, oriented x3 with well-coordinated movements. No focal deficits noted Skin: No rash or skin lesions. Psychiatric: Coperative. Nonsuicidal Musculoskeletal: No joint swelling or deformity. Normal range of motion. - Labs CBC & Chem 7: 01/25/24 06:42 01/25/24 06:42 Labs: Abnormal Lab Results - Last 24 Hours (Table) 01/24/24 01/24/24 01/24/24 Range/Units 09:28 09:28 16:44 WBC 23.5 H (3.8-10.6) k/uL RBC (3.80-5.40) m/uL Hgb (11.4-16.0) gm/dL MCHC (31.0-37.0) g/dL Neutrophils # 21.4 H (1.3-7.7) k/uL Lymphocytes # (1.0-4.8) k/uL Sodium 135 L (137-145) mmol/L Carbon Dioxide 33 H (22-30) mmol/L BUN 38 H (7-17) mg/dL POC Glucose (mg/dL) 154 H (70-110) mg/dL Calcium (8.4-10.2) mg/dL 01/24/24 01/25/24 01/25/24 Range/Units 20:59 06:42 06:42 WBC 19.7 H (3.8-10.6) k/uL RBC 3.69 L (3.80-5.40) m/uL Hgb 11.2 L (11.4-16.0) gm/dL MCHC 30.8 L (31.0-37.0) g/dL Neutrophils # 17.4 H (1.3-7.7) k/uL Lymphocytes # 0.9 L (1.0-4.8) k/uL Sodium 136 L (137-145) mmol/L Carbon Dioxide 33 H (22-30) mmol/L BUN 33 H (7-17) mg/dL POC Glucose (mg/dL) 171 H (70-110) mg/dL Calcium 8.1 L (8.4-10.2) mg/dL Microbiology - Last 24 Hours (Table) 01/19/24 02:10 Blood Culture - Final Blood 01/19/24 01:55 Blood Culture - Final Blood Assessment and Plan Assessment: Acute on chronic hypoxic respiratory failure secondary to COPD exacerbation Pneumonia with bilateral patchy infiltrates and sepsis. Procalcitonin level is 0.6 Acute Non-ST elevated SD Acute CHF with reduced ejection fraction Ongoing nicotine addiction Rheumatoid arthritis Hypertension History of pleural effusions and thoracentesis several years ago Moderate to severe protein calorie malnutrition GI and DVT prophylaxis Plan: Continue telemetry. Heparin drip has been discontinued and patient was started on dual antiplatelets. Cardiology recommends angiogram but patient does not wish to proceed at this time.. 2D echocardiogram showed reduced ejection fraction.. Continue with DuoNebs and IV Solu-Medrol and oxygen supplementation. Continue with antibiotics, Zosyn. Continue with oxygen supplementation of 2 L via nasal cannula. Patient will be continued on aspirin, Plavix, metoprolol, statins and lisinopril. Follow-up repeat chest x-ray Follow-up CBC and BMP tomorrow. Prognosis guarded. Pulmonary and cardiology is on board.
--- NOTE | 2024-01-25 15:33 | P.PN ---
Subjective Progress Note Date: 01/25/24 This is a 73-year-old female patient with a history of chronic obstructive pulmonary disease, recently requiring home oxygen following her recent admission, hypertension, toyed arthritis, chronic and ongoing tobacco dependence. She was just discharged on January 13, 2024 following a COPD exacerbation atypical chest. She did continue her Augmentin, bronchodilators and a prednisone taper. She was to follow-up in our office in 1 week. She presented here to the emergency room yesterday 01/19/2024 with complaints again of increasing shortness of breath, chest pain, cough and congestion. Chest x- ray does reveal evidence of COPD and patchy infiltrate traits, right greater than left. Increased from previous. White count 22.9. Hemoglobin 13.8. Platelets 358. Sodium 132. Potassium 4.7. Bicarb 28. BUN 45. Creatinine 0.58. Glucose 169. AST 64. ALT 24. Troponin 4.180. proBNP 21,100. Viral s creen was negative. She had been initiated on a heparin drip. An echocardiogram revealed a preserved left ventricular systolic function with ejection fraction of 55% and no significant aortic valve disease. She is seen today in consultation in the emergency department. She is awake and alert in no acute distress. She is dyspneic with conversation. Dyspneic with minimal exertion. Currently maintaining O2 saturations in the 90s on 3 L/min per nasal cannula. She is afebrile. Hemodynamically stable. The patient does appear to have cardiac injury but refused to undergo cardiac catheterization per cardiology consultation. Medical treatment will be recommended. She has also requested a DNR/DNI CODE STATUS. Progress note dated January 20, 2024. The patient is seen today in room 380. Currently, the patient is on O2 at 4 L by nasal cannula. She is receiving IV heparin, and saline at 20 cc an hour. Her procalcitonin level was 0.62. She continues on Zosyn. Her labs include a white count 21.4, hemoglobin 12.3, hematocrit 38.2, and a platelet count of 383,000. The patient's PTT was 48.9. Sodium 133, potassium 4.5, chlorides 106, CO2 25, BUN 26, creatinine 0.46. The glucose is 158. Calcium 8.2. Blood cultures are showing no growth. Chest x-ray shows some bilateral opacities, right greater than left, on top of changes of COPD. Progress note dated January 21, 2024. The patient was again seen in room 380. Currently, she is on 4 L of oxygen by nasal cannula. The patient is getting saline at 10 cc an hour, and IV heparin via protocol. The patient did not have any complaints today. She is laying nearly flat in bed. White count 18, hemoglobin 13, hematocrit 42.5, platelet count 416,000. PTT is 93.6. Sodium 134, potassium 3.9, chlorides 102, CO2 29, BUN 29 and creatinine 0.53. Glucose is 163. Calcium is 9.1. Blood cultures are currently negative. Chest x-ray shows patchy bilateral opacities. Progress note dated January 22, 2024. 73-year-old female seen today in room 380. Currently, the patient is on 4 L of oxygen by nasal cannula. She is getting saline at 10 cc an hour. She denies any complaints today. Currently, white count 21.2, hemoglobin 12.9, hematocrit 41.6, and platelet count 460,000. Sodium 133, potassium 4.5, chloride 99, CO2 29, BUN 28, and creatinine 0.63. Glucose is 258. Calcium is 9.1. Blood cultures are currently negative. Progress note dated January 23, 2024. 73-year-old female seen today in room 380. Currently, the patient is on O2 at 2 L. Her Solu-Medrol will be converted to prednisone 40 mg a day. Will order chest x-ray on the patient. She is on 2 L. She is getting saline at 10 cc an hour. Her daughter is in the room, and we speak to her about her mother. Current labs include a white count 22.5, hemoglobin 12.6, hematocrit 38.6, and a platelet count of 360,000. Sodium 135, potassium 4.2, chlorides 100, CO2 32, BUN 35, creatinine 0.48. Glucose is 113. Calcium is 8.9. Progress note dated January 24, 2024. 73-year-old female seen in room 380. The patient is currently on 3 L of oxygen. She is getting saline at 20 cc an hour. She continues on Zosyn. She was admitted with a diagnosis of non-ST segment elevation myocardial infarction, CHF/fluid overload, possible pneumonia. Initially, the patient refused a cardiac catheterization, but apparently she is change her mind, and will have a cardiac catheterization later this afternoon. Current labs include a white count 23.5, hemoglobin 12.7, hematocrit 40.3, and a platelet count of 344,000. Sodium 135, potassium 4.4, chlorides 99, CO2 33, BUN 38, and creatinine 0.61. Glucose is 82. Calcium is 8.8. Blood cultures are negative. Chest x-ray from yesterday shows cardiomegaly, and some interstitial edema. The patient is seen today January 25, 2024 in follow-up on the selective care unit. She is awake and alert in no acute distress. Resting fairly comfortably in bed. She is maintaining O2 saturations in the 90s on 2 L/min per nasal can nula. She has normal staying at 20 MLS per hour. Her heparin drip is off. 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 Overall calcified right and left coronary system. Normal filling pressures. Recommended medical treatment. Denies any chest pain. No worsening shortness of breath, cough or congestion. Cultures revealed no growth. White count 19.7. Hemoglobin 11.2. Platelets 299. Sodium 136. Potassium 3.7. Bicarb 33. BUN 33. Creatinine 0.55. Glucose 76. She remains on DuoNeb ventilations, Symbicort, prednisone taper. She remains on Zosyn. Initial procalcitonin was 0.62. Objective - Vital Signs Vital signs: Vital Signs Temp 98.3 F 01/25/24 12:00 Pulse 80 01/25/24 14:00 Resp 18 01/25/24 14:00 BP 105/64 01/25/24 12:00 Pulse Ox 92 L 01/25/24 12:00 FiO2 Intake & Output 01/24/24 01/25/24 01/25/24 18:59 06:59 18:59 Intake Total 100 Output Total 300 400 Balance -200 -400 Weight 49.895 kg Intake: IV 100 Output: Urine 300 400 Straight 400 Other: Voiding Method External Catheter External Catheter External Catheter - Exam GENERAL EXAM: Alert, frail 73-year-old female, on 3 L nasal cannula, in no apparent distress. HEAD: Normocephalic. EYES: Normal reaction of pupils, equal size. NOSE: Clear with pink turbinates. THROAT: No erythema or exudates. NECK: No masses, no JVD. CHEST: No chest wall deformity. LUNGS: Equal air entry with crackles in the bilateral bases right greater than left. CVS: S1 and S2 normal with no audible murmur, regular rhythm. ABDOMEN: No hepatosplenomegaly, normal bowel sounds, no guarding or rigidity. SPINE: No scoliosis or deformity SKIN: No rashes ecchymosis and noted thin skin CENTRAL NERVOUS SYSTEM: No focal deficits, tone is normal in all 4 extremities. EXTREMITIES: Deformities from rheumatoid arthritis noted, there is no peripheral edema. No clubbing, no cyanosis. Peripheral pulses are intact. - Labs CBC & Chem 7: 01/25/24 06:42 01/25/24 06:42 Labs: Abnormal Lab Results - Last 24 Hours (Table) 01/24/24 01/24/24 01/25/24 Range/Units 16:44 20:59 06:42 WBC 19.7 H (3.8-10.6) k/uL RBC 3.69 L (3.80-5.40) m/uL Hgb 11.2 L (11.4-16.0) gm/dL MCHC 30.8 L (31.0-37.0) g/dL Neutrophils # 17.4 H (1.3-7.7) k/uL Lymphocytes # 0.9 L (1.0-4.8) k/uL Sodium (137-145) mmol/L Carbon Dioxide (22-30) mmol/L BUN (7-17) mg/dL POC Glucose (mg/dL) 154 H 171 H (70-110) mg/dL Calcium (8.4-10.2) mg/dL 01/25/24 01/25/24 Range/Units 06:42 11:39 WBC (3.8-10.6) k/uL RBC (3.80-5.40) m/uL Hgb (11.4-16.0) gm/dL MCHC (31.0-37.0) g/dL Neutrophils # (1.3-7.7) k/uL Lymphocytes # (1.0-4.8) k/uL Sodium 136 L (137-145) mmol/L Carbon Dioxide 33 H (22-30) mmol/L BUN 33 H (7-17) mg/dL POC Glucose (mg/dL) 158 H (70-110) mg/dL Calcium 8.1 L (8.4-10.2) mg/dL Microbiology - Last 24 Hours (Table) 01/19/24 02:10 Blood Culture - Final Blood 01/19/24 01:55 Blood Culture - Final Blood Assessment and Plan Assessment: Chest pain in a patient found to have elevated troponins and EKG changes. 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 Overall calcified right and left coronary systems and was recommended medical therapy Acute exacerbation of chronic obstructive pulmonary disease Chronic and ongoing tobacco dependence Rheumatoid arthritis History of previous pleural effusions attributed to rheumatoid arthritis with previous thoracentesis Hypertension Anorexia/cachexia syndrome Plan: The patient was seen and evaluated Labs and medications reviewed Cardiac catheterization results reviewed Plan is to treat medically Continued on bronchodilators and steroids Continued on Zosyn DNR/DNI CODE STATUS We will continue to follow I have personally seen and examined the patient, performed the documentation and the assessment and plan as written. Number of minutes spent on the visit: 10.
[2024-01-25 16:58] LABS: Glucose,Whole Blood 193 mg/dL (70-110)
[2024-01-25 20:21] LABS: Glucose,Whole Blood 195 mg/dL (70-110)
[2024-01-26 06:27] LABS: Glucose,Whole Blood 109 mg/dL (70-110)
[2024-01-26 07:47] LABS: Basophils % (A) 0 %; Eosinophils # (A) 0.2 k/uL (0-0.7); Eosinophils % (A) 1 %; HGB 12.3 gm/dL (11.4-16.0); Lymphocytes # (A) 0.8 k/uL (1.0-4.8); Lymphocytes % (A) 4 %; MCH 30.8 pg (25.0-35.0); MCHC 31.6 g/dL (31.0-37.0); MCV 97.5 fL (80.0-100.0); Mean Platelet Volume 7.8; Monocytes # (A) 0.7 k/uL (0-1.0); Monocytes % (A) 4 %; Neutrophils # (A) 16.9 k/uL (1.3-7.7); Neutrophils % (A) 90 %; Platelet Count 290 k/uL (150-450); RDW 14.9 % (11.5-15.5); WBC 18.8 k/uL (3.8-10.6)
[2024-01-26 07:59] LABS: African American GFR (CKD) >90 (>60 ml/min/1.73 sqM); Anion Gap 5 mmol/L; Blood Urea Nitrogen 30 mg/dL (7-17); Calcium 8.4 mg/dL (8.4-10.2); Carbon Dioxide 30 mmol/L (22-30); Chloride 101 mmol/L (98-107); Glucose 100 mg/dL (74-99); Non-African American GFR(CKD) >90 (>60 ml/min/1.73 sqM); Potassium 3.5 mmol/L (3.5-5.1); Sodium 136 mmol/L (137-145)
[2024-01-26] MEDS: FUROSEMIDE 40 MG TAB PO SCH (08:23)
[2024-01-26 11:49] LABS: Glucose,Whole Blood 159 mg/dL (70-110)
--- NOTE | 2024-01-26 11:55 | P.PN ---
Subjective Progress Note Date: 01/26/24 Chief complaint: Chest discomfort and shortness of breath History of present illness: The patient is a very pleasant 73-year-old female patient with a past medical history significant for smoking and chronic obstructive pulmonary disease and no cardiovascular history from before including coronary artery disease or diabetes or hypertension or dyslipidemia. She just was discharged from the hospital recently after she was admitted with a COPD exacerbation. During her hospital stay she underwent an echo and that showed normal LV systolic function. She was brought to the hospital again by her son complaining of shortness of breath and the chest discomfort started within the last 24 hours. She underwent further investigation including an EKG and that showed sinus mechanism with ST changes anteriorly concerning for severe underlying coronary artery disease. Also she underwent a blood work including troponin came in to be abnormal and consistent with acute coronary syndrome. NT proBNP came in to be elevated as well around 21,000. Her hemoglobin and kidney function and electrolytes are within normal limits with a chest x-ray showed finding consistent with COPD and possibly left pleural effusion. The patient was seen and evaluated this morning. She is having ongoing chest discomfort about 8/10 in intensity. Currently she is on heparin. She stated that the chest discomfort has came down slightly after she was started on heparin. No known history of coronary artery disease or congestive heart failure or any cardiac arrhythmia and never seen by any armed guard before. She was advised to undergo a heart catheterization given the ongoing chest discomfort and abnormal blood work with abnormal troponin which is consistent with acute coronary syndrome in her case but the patient refused and she would like medical treatment only. With that being said I am going to start the patient on dual antiplatelet therapy along with a statin along with beta-kenn. She does not seems in any overt congestive heart failure at this point. Examination revealed distant heart sounds with regular rhythm and diminished breathing sounds bilaterally. No edema was noted. 01/19 Patient states that she does have chest pain with movement but is fine when she is laying down. She was up in a chair for about an hour and felt very anxious a nd had pain. She feels the pain is about the same as when she came in to the hospital. Discussed results of the testing and recommendations for cardiac catheterization but patient is very adamant that she only wants to try medications at this time. She is on a heparin drip. Echocardiogram has been obtained and report is pending. 01/20 Patient states that she continues to have chest pain in the midsternal area. She states that [place] seems to help her a little bit. But it does not go away. Blood pressure 95/63, heart rate 89, pulse ox 93% on 4 L nasal cannula. Echocardiogram revealed EF of 25 to 30%. Results of the echocardiogram reviewed with the patient. She does state that her symptoms started with a stressful event so this could be related to Takotsubo cardiomyopathy. Patient offered cardiac catheterization again which she declined. 01/21 Patient states she still has a left chest pain but felt that when she got out of bed she was feeling better. The pain is worse with movement from lying to a sitting position. She states she walked a little bit last evening and sat in a chair for about 1 hour. She states she feels very weak. She did receive [place] about 1 hour ago. Blood pressure 89/53, heart rate 73, pulse ox 95% on 4 L nasal cannula. Repeat blood work reveals WBC 21, hemoglobin 12.9. BUN 28 creatinine 0.63. Heparin drip was discontinued yesterday. Patient maintained on dual antiplatelet therapy, statin, and beta-kenn. 01/24 Yesterday, patient underwent cardiac catheterization with Dr. 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 Overall calcified right and left coronary system. Normal left-sided filling pressure. Plan was for medical management. Blood pressure 121/64, heart rate in the 70s. Pulse ox is 97% on 2 L nasal cannula. Repeat blood work reveals hemoglobin 11.2. BUN 33 creatinine 0.55, potassium 3.7. 01/25 Blood pressure 122/72, heart rate is in the 80s, pulse ox 98% on 2 L nasal cannula. Yesterday, IV Lasix was transitioned to oral 40 mg daily. Patient has a negative fluid balance. Repeat blood work reveals WBC 18.8, hemoglobin 12.3. Potassium is 3.5, creatinine 0.5. Physical Examination Gen: This is a 73-year-old female in no acute distress. HEENT: Head is atraumatic, normocephalic. Pupils equal, round. Sclerae is anicteric. NECK: Supple. No JVD. No lymphadenopathy. No thyromegaly. LUNGS: Clear to auscultation. No wheezes or rhonchi. No intercostal retractions. HEART: Regular rate and rhythm. No murmur. ABDOMEN: Soft. Bowel sounds are present. No masses. No tenderness. EXTREMITIES: No pedal edema. No calf tenderness. NEUROLOGICAL: Patient is awake, alert and oriented x3. Assessment Acute hypoxic respiratory failure likely secondary to COPD exacerbation Non-ST elevated myocardial infarction versus possible Takotsubo cardiomyopathy Chronic obstructive pulmonary disease Smoking and the patient is actively smoker Plan Continue medical management for the acute coronary syndrome Continue current cardiac medications: Aspirin 81 mg daily, atorvastatin 40 mg daily, Plavix 75 mg daily, lisinopril 10 mg daily, Toprol-XL 25 mg twice daily Continue Lasix oral 40 mg daily Follow-up with the patient Nurse practitioner note has been reviewed, I agree with documented findings and plan of care. Patient was seen and examined. Objective - Vital Signs Vital signs: Vital Signs Temp 97.5 F L 01/25/24 20:00 Pulse 84 01/26/24 08:21 Resp 16 01/26/24 04:00 BP 122/72 01/26/24 04:00 Pulse Ox 98 01/26/24 04:00 FiO2 Intake & Output 01/25/24 01/26/24 01/26/24 18:59 06:59 18:59 Intake Total 118 100 Output Total 1325 400 Balance -1207 -300 Intake: Oral 118 100 Output: Urine 1325 400 Straight 725 Other: Voiding Method External Catheter Indwelling Catheter - Labs CBC & Chem 7: 01/26/24 06:26 01/26/24 06:26 Labs: Abnormal Lab Results - Last 24 Hours (Table) 01/25/24 01/25/24 01/25/24 Range/Units 11:39 16:57 20:20 WBC (3.8-10.6) k/uL Neutrophils # (1.3-7.7) k/uL Lymphocytes # (1.0-4.8) k/uL Sodium (137-145) mmol/L BUN (7-17) mg/dL Creatinine (0.52-1.04) mg/dL Glucose (74-99) mg/dL POC Glucose (mg/dL) 158 H 193 H 195 H (70-110) mg/dL 01/26/24 01/26/24 Range/Units 06:26 06:26 WBC 18.8 H (3.8-10.6) k/uL Neutrophils # 16.9 H (1.3-7.7) k/uL Lymphocytes # 0.8 L (1.0-4.8) k/uL Sodium 136 L (137-145) mmol/L BUN 30 H (7-17) mg/dL Creatinine 0.50 L (0.52-1.04) mg/dL Glucose 100 H (74-99) mg/dL POC Glucose (mg/dL) (70-110) mg/dL
--- NOTE | 2024-01-26 13:23 | P.PN ---
Subjective Progress Note Date: 01/26/24 Principal diagnosis: Myocardial infarction. This is a 73-year-old female patient with a history of chronic obstructive pulmonary disease, recently requiring home oxygen following her recent admission, hypertension, toyed arthritis, chronic and ongoing tobacco dependence. She was just discharged on January 13, 2024 following a COPD exacerbation atypical chest. She did continue her Augmentin, bronchodilators and a prednisone taper. She was to follow-up in our office in 1 week. She presented here to the emergency room yesterday 01/19/2024 with complaints again of increasing shortness of breath, chest pain, cough and congestion. Chest x- ray does reveal evidence of COPD and patchy infiltrate traits, right greater than left. Increased from previous. White count 22.9. Hemoglobin 13.8. Platelets 358. Sodium 132. Potassium 4.7. Bicarb 28. BUN 45. Creatinine 0.58. Glucose 169. AST 64. ALT 24. Troponin 4.180. proBNP 21,100. Viral screen was negative. She had been initiated on a heparin drip. An echocardiogram revealed a preserved left ventricular systolic function with ejection fraction of 55% and no significant aortic valve disease. She is seen today in consultation in the emergency department. She is awake and alert in no acute distress. She is dyspneic with conversation. Dyspneic with minimal exertion. Currently maintaining O2 saturations in the 90s on 3 L/min per nasal cannula. She is afebrile. Hemodynamically stable. The patient does appear to have cardiac injury but refused to undergo cardiac catheterization per cardiology consultation. Medical treatment will be recommended. She has also requested a DNR/DNI CODE STATUS. Progress note dated January 20, 2024. The patient is seen today in room 380. Currently, the patient is on O2 at 4 L by nasal cannula. She is receiving IV heparin, and saline at 20 cc an hour. Her procalcitonin level was 0.62. She continues on Zosyn. Her labs include a white count 21.4, hemoglobin 12.3, hematocrit 38.2, and a platelet count of 383,000. The patient's PTT was 48.9. Sodium 133, potassium 4.5, chlorides 106, CO2 25, BUN 26, creatinine 0.46. The glucose is 158. Calcium 8.2. Blood cu ltures are showing no growth. Chest x-ray shows some bilateral opacities, right greater than left, on top of changes of COPD. Progress note dated January 21, 2024. The patient was again seen in room 380. Currently, she is on 4 L of oxygen by nasal cannula. The patient is getting saline at 10 cc an hour, and IV heparin via protocol. The patient did not have any complaints today. She is laying nearly flat in bed. White count 18, hemoglobin 13, hematocrit 42.5, platelet count 416,000. PTT is 93.6. Sodium 134, potassium 3.9, chlorides 102, CO2 29, BUN 29 and creatinine 0.53. Glucose is 163. Calcium is 9.1. Blood cultures are currently negative. Chest x-ray shows patchy bilateral opacities. Progress note dated January 22, 2024. 73-year-old female seen today in room 380. Currently, the patient is on 4 L of oxygen by nasal cannula. She is getting saline at 10 cc an hour. She denies any complaints today. Currently, white count 21.2, hemoglobin 12.9, hematocrit 41.6, and platelet count 460,000. Sodium 133, potassium 4.5, chloride 99, CO2 29, BUN 28, and creatinine 0.63. Glucose is 258. Calcium is 9.1. Blood cultures are currently negative. Progress note dated January 23, 2024. 73-year-old female seen today in room 380. Currently, the patient is on O2 at 2 L. Her Solu-Medrol will be converted to prednisone 40 mg a day. Will order chest x-ray on the patient. She is on 2 L. She is getting saline at 10 cc an hour. Her daughter is in the room, and we speak to her about her mother. Current labs include a white count 22.5, hemoglobin 12.6, hematocrit 38.6, and a platelet count of 360,000. Sodium 135, potassium 4.2, chlorides 100, CO2 32, BUN 35, creatinine 0.48. Glucose is 113. Calcium is 8.9. Progress note dated January 24, 2024. 73-year-old female seen in room 380. The patient is currently on 3 L of oxygen. She is getting saline at 20 cc an hour. She continues on Zosyn. She was admitted with a diagnosis of non-ST segment elevation myocardial infarction, CHF/fluid overload, possible pneumonia. Initially, the patient refused a cardiac catheterization, but apparently she is change her mind, and will have a cardiac catheterization later this afternoon. Current labs include a white count 23.5, hemoglobin 12.7, hematocrit 40.3, and a platelet count of 344,000. Sodium 135, potassium 4.4, chlorides 99, CO2 33, BUN 38, and creatinine 0.61. Glucose is 82. Calcium is 8.8. Blood cultures are negative. Chest x-ray from yesterday shows cardiomegaly, and some interstitial edema. Progress note dated January 26, 2024. 73-year-old female seen in room 380. The patient's daughter is at the bedside. The patient is currently on nasal O2 at 2 L. The patient is getting saline at 20 cc an hour. The patient continues on Zosyn. Clinically, from the pulmonary standpoint, she is doing much better. We will recheck a procalcitonin level. Current labs include a white count 18.8, hemoglobin 12.3, hematocrit 39, platelet count 290,000. Sodium 136, potassium 3.5, chlorides 10 once, CO2 30, BUN 30, creatinine 0.5. Patient's calcium is 8.4. Glucose is 159. Blood cultures are negative. No recent chest x-ray. Objective - Vital Signs Vital signs: Vital Signs Temp 98.0 F 01/26/24 08:00 Pulse 76 01/26/24 11:22 Resp 20 01/26/24 08:00 BP 115/63 01/26/24 08:00 Pulse Ox 98 01/26/24 08:00 FiO2 Intake & Output 01/25/24 01/26/24 01/26/24 18:59 06:59 18:59 Intake Total 118 100 240 Output Total 1325 400 Balance -1207 -300 240 Intake: Oral 118 100 240 Output: Urine 1325 400 Straight 725 Other: Voiding Method External Catheter Indwelling Catheter Indwelling Catheter - Exam No acute distress, oriented 3. No acute distress. Currently on 2 L by nasal cannula. HEENT examination is grossly unremarkable. Mucous membranes are moist. No oral lesions. Neck supple. Full range of motion. No adenopathy thyromegaly or neck vein distention. Cardiovascular examination reveals regular rhythm rate. S1-S2 normal. No S3 or S4. No discernible murmur noted. Heart sounds are distant. Heart rate is 76 bpm. Lungs reveal rhonchi and crackles. Breath sounds equal. 2 L saturation is 97 %. Abdomen soft bowel sounds are heard. No masses or tenderness. Extremities are intact. No cyanosis clubbing or edema. Skin is without rash or lesion. Neurologic examination is brief but nonfocal. - Labs CBC & Chem 7: 01/26/24 06:26 01/26/24 06:26 Labs: Abnormal Lab Results - Last 24 Hours (Table) 01/25/24 01/25/24 01/26/24 Range/Units 16:57 20:20 06:26 WBC 18.8 H (3.8-10.6) k/uL Neutrophils # 16.9 H (1.3-7.7) k/uL Lymphocytes # 0.8 L (1.0-4.8) k/uL Sodium (137-145) mmol/L BUN (7-17) mg/dL Creatinine (0.52-1.04) mg/dL Glucose (74-99) mg/dL POC Glucose (mg/dL) 193 H 195 H (70-110) mg/dL 01/26/24 01/26/24 Range/Units 06:26 11:47 WBC (3.8-10.6) k/uL Neutrophils # (1.3-7.7) k/uL Lymphocytes # (1.0-4.8) k/uL Sodium 136 L (137-145) mmol/L BUN 30 H (7-17) mg/dL Creatinine 0.50 L (0.52-1.04) mg/dL Glucose 100 H (74-99) mg/dL POC Glucose (mg/dL) 159 H (70-110) mg/dL Assessment and Plan Assessment: Chest pain in a patient found to have elevated troponins and EKG changes. 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 The patient is to be treated medically. Acute exacerbation of chronic obstructive pulmonary disease. Chronic and ongoing tobacco dependence. Rheumatoid arthritis. History of previous pleural effusions attributed to rheumatoid arthritis with pr evious thoracentesis. Hypertension. Anorexia/cachexia syndrome. Plan: Plan dated January 20, 2024. The patient is seen today in room 380. The patient declined cardiac catheterization. She continues on 4 L by nasal cannula, saline at 20 cc an hour, IV heparin, and Zosyn. Chest x-ray does show some patchy bilateral infiltrates. Procalcitonin level was 0.62. Labs, x-rays, and medications are reviewed. We will continue to follow the patient, and make recommendations along the way. Prognosis is currently guarded. The patient is a DO NOT RESUSCITATE/DO NOT INTUBATE patient. Plan dated January 21, 2024. The patient was seen today in room 380. Currently, the patient is on 4 L of oxygen. She is getting saline at 10 cc an hour. She is also receiving IV heparin via protocol. Labs, x-rays, medications are reviewed. We will continue to follow the patient, make recommendations along the way. The patient is a no code patient. The patient did refuse cardiac catheterization. Prognosis is guarded. Plan dated January 22, 2024. The patient is seen today in room 380. The patient is currently on 4 L of oxygen. Labs, x-rays, and medications are reviewed. The patient was apparently offered a cardiac catheterization, but did not want to have one. The patient continues on usual medications, including Lipitor, Symbicort, Plavix, Lasix, insulin, updrafts, Solu-Medrol, and Zosyn. We will continue to follow make recommendations along the way. The patient's overall prognosis remains very guarded. Plan dated January 23, 2024. The patient was seen today in room 380. The patient's daughter is in the room. She continues on oxygen at 4 L by nasal cannula. Saturations are 93%. On room air, her saturations are 81%. The patient will have a portable chest x-ray ordered. In addition, her Solu-Medrol was discontinued in favor of prednisone 40 mg a day. Chest x-ray shows cardiomegaly, and diffuse interstitial changes. Will continue to follow the patient, and make recommendations along the way. Prognosis is certainly guarded. Plan dated January 24, 2024. Previously, the patient refused cardiac catheterization. Apparently now she agrees to cardiac catheterization. Will be done this afternoon. Labs, x-rays, medications are reviewed. The Solu-Medrol was discontinued in favor of prednisone. We will continue to follow the patient, make recommendations along the way. Prognosis is guarded. Plan dated January 26, 2024. The patient is doing reasonably well from the respiratory standpoint. She continues on 2 L of oxygen. We will check a procalcitonin level. She continues on Zosyn. That can probably be stopped if the procalcitonin level is normal. We will continue to follow make recommendations along the way. Her daughter is at the bedside. She is not manifesting any signs or symptoms of respiratory distress. Prognosis is guarded. Time with Patient: Less than 30
--- NOTE | 2024-01-26 15:20 | P.PN ---
Subjective Progress Note Date: 01/25/24 Principal diagnosis: Reason for follow-up is pneumonia and leukocytosis Patient is a 73-year-old female with a past medical history significant for COPD hypertension rheumatoid arthritis and heart failure presenting to [facility] ER for evaluation of increasing shortness of breath chest pain cough, patient did have a low-grade fever mild elevated procalcitonin chest x-ray with the patient recently right and left lower lung concerning for possible pneumonia. On today's evaluation that is 01/25/2024, Patient is afebrile patient is currently on 2 L nasal cannula oxygen and denies having any shortness of breath, the patient denies any chest pain or cough, the patient denies any nausea vomiting did not have any abdominal pain and no diarrhea, no new symptoms Patient white count is down to 19.7, creatinine 0.55 Objective - Vital Signs Vital signs: Vital Signs Temp 98.3 F 01/25/24 12:00 Pulse 80 01/25/24 14:00 Resp 18 01/25/24 14:00 BP 105/64 01/25/24 12:00 Pulse Ox 92 L 01/25/24 12:00 FiO2 Intake & Output 01/24/24 01/25/24 01/25/24 18:59 06:59 18:59 Intake Total 100 Output Total 300 400 Balance -200 -400 Weight 49.895 kg Intake: IV 100 Output: Urine 300 400 Straight 400 Other: Voiding Method External Catheter External Catheter External Catheter - Exam GENERAL DESCRIPTION: An elderly female lying in bed in no distress RESPIRATORY SYSTEM: Unlabored breathing , decreased intensity of breath sounds, no wheeze HEART: S1 S2 regular rate and rhythm , ABDOMEN: Soft , no tenderness EXTREMITIES: No edema feet - Labs CBC & Chem 7: 01/26/24 06:26 01/26/24 06:26 Labs: Abnormal Lab Results - Last 24 Hours (Table) 01/24/24 01/24/24 01/25/24 Range/Units 16:44 20:59 06:42 WBC 19.7 H (3.8-10.6) k/uL RBC 3.69 L (3.80-5.40) m/uL Hgb 11.2 L (11.4-16.0) gm/dL MCHC 30.8 L (31.0-37.0) g/dL Neutrophils # 17.4 H (1.3-7.7) k/uL Lymphocytes # 0.9 L (1.0-4.8) k/uL Sodium (137-145) mmol/L Carbon Dioxide (22-30) mmol/L BUN (7-17) mg/dL POC Glucose (mg/dL) 154 H 171 H (70-110) mg/dL Calcium (8.4-10.2) mg/dL 01/25/24 01/25/24 Range/Units 06:42 11:39 WBC (3.8-10.6) k/uL RBC (3.80-5.40) m/uL Hgb (11.4-16.0) gm/dL MCHC (31.0-37.0) g/dL Neutrophils # (1.3-7.7) k/uL Lymphocytes # (1.0-4.8) k/uL Sodium 136 L (137-145) mmol/L Carbon Dioxide 33 H (22-30) mmol/L BUN 33 H (7-17) mg/dL POC Glucose (mg/dL) 158 H (70-110) mg/dL Calcium 8.1 L (8.4-10.2) mg/dL Microbiology - Last 24 Hours (Table) 01/19/24 02:10 Blood Culture - Final Blood 01/19/24 01:55 Blood Culture - Final Blood Assessment and Plan (1) Pneumonia Current Visit: Yes Status: Acute Code(s): J18.9 - PNEUMONIA, UNSPECIFIED OR GANISM SNOMED Code(s): 928521438 (2) Leukocytosis Current Visit: Yes Status: Acute Code(s): D72.829 - ELEVATED WHITE BLOOD CELL COUNT, UNSPECIFIED SNOMED Code(s): 889362678 Plan: 1patient presented to hospital with increasing shortness of breath which is likely multifactorial in this patient will to have a cough elevated white count mildly elevated procalcitonin with the opacities in the right upper and left lower lobe concerning for pneumonia with question of possible gram-negative questionable aspiration 2sputum not collected blood cultures has been negative 3patient is afebrile, worsening leukocytosis likely related to steroids as no evidence of any worsening clinical condition and the patient white count trending down we will monitor daily, continue with the Zosyn Dictation was produced using dragon dictation software. please excuse any grammatical, word or spelling errors. Time with Patient: Less than 30
--- NOTE | 2024-01-26 15:21 | P.PN ---
Subjective Progress Note Date: 01/26/24 Principal diagnosis: Reason for follow-up is pneumonia and leukocytosis Patient is a 73-year-old female with a past medical history significant for COPD hypertension rheumatoid arthritis and heart failure presenting to [facility] ER for evaluation of increasing shortness of breath chest pain cough, patient did have a low-grade fever mild elevated procalcitonin chest x-ray with the patient recently right and left lower lung concerning for possible pneumonia. On today's evaluation that is 01/25/2024, Patient is afebrile patient is currently on 2 L nasal cannula oxygen and denies having any shortness of breath, the patient denies any chest pain or cough, the patient denies any nausea vomiting did not have any abdominal pain and no diarrhea. Patient white count is down to 18.8 creatinine 0.50 blood culture has been negative no sputum was collected Objective - Vital Signs Vital signs: Vital Signs Temp 98.0 F 01/26/24 08:00 Pulse 76 01/26/24 11:22 Resp 20 01/26/24 08:00 BP 115/63 01/26/24 08:00 Pulse Ox 98 01/26/24 08:00 FiO2 Intake & Output 01/25/24 01/26/24 01/26/24 18:59 06:59 18:59 Intake Total 118 100 240 Output Total 1325 400 Balance -1207 -300 240 Intake: Oral 118 100 240 Output: Urine 1325 400 Straight 725 Other: Voiding Method External Catheter Indwelling Catheter Indwelling Catheter - Exam GENERAL DESCRIPTION: An elderly female lying in bed in no distress RESPIRATORY SYSTEM: Unlabored breathing , decreased intensity of breath sounds, no wheeze HEART: S1 S2 regular rate and rhythm , ABDOMEN: Soft , no tenderness EXTREMITIES: No edema feet - Labs CBC & Chem 7: 01/26/24 06:26 01/26/24 06:26 Labs: Abnormal Lab Results - Last 24 Hours (Table) 01/25/24 01/25/24 01/26/24 Range/Units 16:57 20:20 06:26 WBC 18.8 H (3.8-10.6) k/uL Neutrophils # 16.9 H (1.3-7.7) k/uL Lymphocytes # 0.8 L (1.0-4.8) k/uL Sodium (137-145) mmol/L BUN (7-17) mg/dL Creatinine (0.52-1.04) mg/dL Glucose (74-99) mg/dL POC Glucose (mg/dL) 193 H 195 H (70-110) mg/dL 01/26/24 01/26/24 Range/Units 06:26 11:47 WBC (3.8-10.6) k/uL Neutrophils # (1.3-7.7) k/uL Lymphocytes # (1.0-4.8) k/uL Sodium 136 L (137-145) mmol/L BUN 30 H (7-17) mg/dL Creatinine 0.50 L (0.52-1.04) mg/dL Glucose 100 H (74-99) mg/dL POC Glucose (mg/dL) 159 H (70-110) mg/dL Assessment and Plan (1) Pneumonia Current Visit: Yes Status: Acute Code(s): J18.9 - PNEUMONIA, UNSPECIFIED ORGANISM SNOMED Code(s): 973153079 (2) Leukocytosis Current Visit: Yes Status: Acute Code(s): D72.829 - ELEVATED WHITE BLOOD CELL COUNT, UNSPECIFIED SNOMED Code(s): 195501966 Plan: 1patient presented to hospital with increasing shortness of breath which is likely multifactorial in this patient will to have a cough elevated white count mildly elevated procalcitonin with the opacities in the right upper and left lower lobe concerning for pneumonia with question of possible gram-negative questionable aspiration 2sputum not collected blood cultures has been negative 3patient is afebrile, and the patient white count is trending down, patient has completed a course of Zosyn as of today and the patient will be monitored closely off antibiotic therapy Dictation was produced using [employer] dictation software. please excuse any grammatical, word or spelling errors. Time with Patient: Less than 30
--- NOTE | 2024-01-26 15:30 | P.PN ---
Subjective Progress Note Date: 01/26/24 73-year-old female patient with a history of chronic obstructive pulmonary disease, recently requiring home oxygen following her recent admission, hypertension, toyed arthritis, chronic and ongoing tobacco dependence. She was just discharged on January 13, 2024 following a COPD exacerbation atypical chest. She did continue her Augmentin, bronchodilators and a prednisone taper. She was to follow-up in our office in 1 week. She presented here to the emergency room yesterday 01/19/2024 with complaints again of increasing shortness of breath, chest pain, cough and congestion. Chest x-ray does reveal evidence of COPD and patchy infiltrate traits, right greater than left. Increased from previous. Wh ite count 22.9. Hemoglobin 13.8. Platelets 358. Sodium 132. Potassium 4.7. Bicarb 28. BUN 45. Creatinine 0.58. Glucose 169. AST 64. ALT 24. Troponin 4.180. proBNP 21,100. Viral screen was negative. She had been initiated on a heparin drip. An echocardiogram revealed a preserved left ventricular systolic function with ejection fraction of 55% and no significant aortic valve disease. She is seen today in consultation in the emergency department. She is awake and alert in no acute distress. She is dyspneic with conversation. Dyspneic with minimal exertion. Currently maintaining O2 saturations in the 90s on 3 L/min per nasal cannula. She is afebrile. Hemodynamically stable. The patient does appear to have cardiac injury but refused to undergo cardiac catheterization per cardiology consultation. Medical treatment will be recommended. She has also requested a DNR/DNI CODE STATUS. 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; calcified right and left coronary system with normal left-sided filling pressure; current management is recommended 24-hour interval change 01/26/2024 Patient is seen and evaluated in room at bedside; discussed with nursing staff; no specific complaints reported patient presented to hospital with increasing shortness of breath which is likely multifactorial in this patient will to have a cough elevated white count mildly elevated procalcitonin with the opacities in the right upper and left lower lobe concerning for pneumonia with question of possible gram-negative questionable aspiration sputum not collected blood cultures has been negative patient is afebrile, and the patient white count is trending down, patient has completed a course of Zosyn as of today and the patient will be monitored closely off antibiotic therapy Objective - Vital Signs Vital signs: Vital Signs Temp 98.0 F 01/26/24 08:00 Pulse 84 01/26/24 08:21 Resp 20 01/26/24 08:00 BP 115/63 01/26/24 08:00 Pulse Ox 98 01/26/24 08:00 FiO2 Intake & Output 01/25/24 01/26/24 01/26/24 18:59 06:59 18:59 Intake Total 118 100 240 Output Total 1325 400 Balance -1207 -300 240 Intake: Oral 118 100 240 Output: Urine 1325 400 Straight 725 Other: Voiding Method External Catheter Indwelling Catheter Indwelling Catheter - Exam Patient is lying in the bed comfortably, no acute distress, awake alert and oriented.. HEENT: Normocephalic. Neck is supple. Pupils reactive. Nostrils clear. Oral cavity is moist. Neck reveals no JVD, carotid bruits, or thyromegaly. CHEST EXAMINATION: Trachea is central. Symmetrical expansion. Bilateral prolonged expiration and diminished sounds.. Nonlabored breathing. CARDIAC: Normal S1, S2 with no gallops. No murmurs ABDOMEN: Soft. Bowel sounds normal. No organomegaly. No abdominal bruits. Extremities: reveal no edema. No clubbing or cyanosis Neurologically awake, alert, oriented x3 with well-coordinated movements. No focal deficits noted Skin: No rash or skin lesions. Psychiatric: Coperative. Nonsuicidal Musculoskeletal: No joint swelling or deformity. Normal range of motion. - Labs CBC & Chem 7: 01/26/24 06:26 01/26/24 06:26 Labs: Abnormal Lab Results - Last 24 Hours (Table) 01/25/24 01/25/24 01/25/24 Range/Units 11:39 16:57 20:20 WBC (3.8-10.6) k/uL Neutrophils # (1.3-7.7) k/uL Lymphocytes # (1.0-4.8) k/uL Sodium (137-145) mmol/L BUN (7-17) mg/dL Creatinine (0.52-1.04) mg/dL Glucose (74-99) mg/dL POC Glucose (mg/dL) 158 H 193 H 195 H (70-110) mg/dL 01/26/24 01/26/24 Range/Units 06:26 06:26 WBC 18.8 H (3.8-10.6) k/uL Neutrophils # 16.9 H (1.3-7.7) k/uL Lymphocytes # 0.8 L (1.0-4.8) k/uL Sodium 136 L (137-145) mmol/L BUN 30 H (7-17) mg/dL Creatinine 0.50 L (0.52-1.04) mg/dL Glucose 100 H (74-99) mg/dL POC Glucose (mg/dL) (70-110) mg/dL Assessment and Plan Assessment: Acute on chronic hypoxic respiratory failure secondary to COPD exacerbation Pneumonia with bilateral patchy infiltrates and sepsis. Procalcitonin level is 0.6 Acute Non-ST elevated UT Acute CHF with reduced ejection fraction Ongoing nicotine addiction Rheumatoid arthritis Hypertension History of pleural effusions and thoracentesis several years ago Moderate to severe protein calorie malnutrition GI and DVT prophylaxis Plan: Continue telemetry. Heparin drip has been discontinued and patient was started on dual antiplatelets. Cardiology recommends angiogram but patient does not wis h to proceed at this time.. 2D echocardiogram showed reduced ejection fraction.. Continue with DuoNebs and IV Solu-Medrol and oxygen supplementation. Continue with antibiotics, Zosyn. Continue with oxygen supplementation of 2 L via nasal cannula. Patient will be continued on aspirin, Plavix, metoprolol, statins and lisinopril. Follow-up repeat chest x-ray Follow-up CBC and BMP tomorrow. Prognosis guarded. Pulmonary and cardiology is on board.
[2024-01-26 16:57] LABS: Glucose,Whole Blood 199 mg/dL (70-110)
[2024-01-26 21:16] LABS: Glucose,Whole Blood 126 mg/dL (70-110)
[2024-01-27 05:37] LABS: Glucose,Whole Blood 94 mg/dL (70-110)
[2024-01-27 11:05] LABS: African American GFR (CKD) >90 (>60 ml/min/1.73 sqM); Anion Gap 3 mmol/L; Blood Urea Nitrogen 20 mg/dL (7-17); Calcium 8.9 mg/dL (8.4-10.2); Carbon Dioxide 30 mmol/L (22-30); Chloride 102 mmol/L (98-107); Glucose 113 mg/dL (74-99); Non-African American GFR(CKD) >90 (>60 ml/min/1.73 sqM); Potassium 4.1 mmol/L (3.5-5.1); Sodium 135 mmol/L (137-145)
[2024-01-27 11:09] LABS: Basophils % (A) 0 %; Eosinophils # (A) 0.4 k/uL (0-0.7); Eosinophils % (A) 2 %; HCT 39.8 % (34.0-46.0); HGB 12.9 gm/dL (11.4-16.0); Lymphocytes % (A) 7 %; MCH 31.6 pg (25.0-35.0); MCHC 32.5 g/dL (31.0-37.0); MCV 97.3 fL (80.0-100.0); Mean Platelet Volume 7.9; Monocytes # (A) 0.7 k/uL (0-1.0); Monocytes % (A) 5 %; Neutrophils % (A) 86 %; Platelet Count 283 k/uL (150-450); RBC 4.09 m/uL (3.80-5.40); RDW 14.9 % (11.5-15.5); WBC 15.2 k/uL (3.8-10.6)
[2024-01-27 11:39] LABS: Glucose,Whole Blood 133 mg/dL (70-110)
--- NOTE | 2024-01-27 12:10 | P.PN ---
Subjective Progress Note Date: 01/27/24 Principal diagnosis: Reason for follow-up is pneumonia and leukocytosis Patient is a 73-year-old female with a past medical history significant for COPD hypertension rheumatoid arthritis and heart failure presenting to [facility] for evaluation of increasing shortness of breath chest pain cough, patient did have a low-grade fever mild elevated procalcitonin chest x-ray with the patient recently right and left lower lung concerning for possible pneumonia. On today's evaluation that is 01/27/2024,the patient denies any fever or any chills, patient is complaining of shortness of breath today patient is currently on 2 L nasal cannula oxygen denies any chest pain no worsening cough or sputum production no nausea vomiting no abdominal pain or diarrhea. Patient white count is down to 15.2 creatinine 0.44 blood culture has been negative Objective - Vital Signs Vital signs: Vital Signs Temp 97.5 F L 01/27/24 08:00 Pulse 70 01/27/24 10:22 Resp 18 01/27/24 08:00 BP 105/56 01/27/24 08:00 Pulse Ox 95 01/27/24 10:08 FiO2 Intake & Output 01/26/24 01/27/24 01/27/24 18:59 06:59 18:59 Intake Total 240 Output Total 1100 Balance 240 -1100 Intake: Oral 240 Output: Urine 1100 Other: Voiding Method Indwelling Catheter Indwelling Catheter Indwelling Catheter - Exam GENERAL DESCRIPTION: An elderly female lying in bed in no distress RESPIRATORY SYSTEM: Unlabored breathing , decreased intensity of breath sounds, no wheeze HEART: S1 S2 regular rate and rhythm , ABDOMEN: Soft , no tenderness EXTREMITIES: No edema feet - Labs CBC & Chem 7: 01/27/24 10:28 01/27/24 10:28 Labs: Abnormal Lab Results - Last 24 Hours (Table) 01/26/24 01/26/24 01/27/24 Range/Units 16:55 21:15 10:28 WBC 15.2 H (3.8-10.6) k/uL Neutrophils # 13.0 H (1.3-7.7) k/uL Sodium (137-145) mmol/L BUN (7-17) mg/dL Creatinine (0.52-1.04) mg/dL Glucose (74-99) mg/dL POC Glucose (mg/dL) 199 H 126 H (70-110) mg/dL 01/27/24 01/27/24 Range/Units 10:28 11:37 WBC (3.8-10.6) k/uL Neutrophils # (1.3-7.7) k/uL Sodium 135 L (137-145) mmol/L BUN 20 H (7-17) mg/dL Creatinine 0.44 L (0.52-1.04) mg/dL Glucose 113 H (74-99) mg/dL POC Glucose (mg/dL) 133 H (70-110) mg/dL Assessment and Plan (1) Pneumonia Current Visit: Yes Status: Acute Code(s): J18.9 - PNEUMONIA, UNSPECIFIED ORGANISM SNOMED Code(s): 471424630 (2) Leukocytosis Current Visit: Yes Status: Acute Code(s): D72.829 - ELEVATED WHITE BLOOD CE LL COUNT, UNSPECIFIED SNOMED Code(s): 358158939 Plan: 1patient presented to hospital with increasing shortness of breath which is likely multifactorial in this patient will to have a cough elevated white count mildly elevated procalcitonin with the opacities in the right upper and left lower lobe concerning for pneumonia with question of possible gram-negative questionable aspiration 2sputum not collected blood cultures has been negative 3patient is afebrile, and the patient white count is trending down, the patient will be monitored closely off antibiotic therapy question concern answered Dictation was produced using [employer] dictation software. please excuse any grammatical, word or spelling errors. Time with Patient: Less than 30
[2024-01-27] MEDS: SPIRONOLACTONE 25 MG TAB PO SCH (12:26)
[2024-01-27] MEDS: DAPAGLIFLOZIN PROPANEDIOL 10 MG TABLET PO SCH (12:26)
--- NOTE | 2024-01-27 12:31 | XR ---
EXAMINATION TYPE: XR chest 1V portable DATE OF EXAM: 01/27/2024 COMPARISON: 01/23/2024 INDICATION: Difficulty breathing TECHNIQUE: Single frontal view of the chest is obtained. FINDINGS: The heart size is mildly prominent. The pulmonary vasculature is upper limits for normal. Linear opacities at the right lung base. Correlate for atelectasis. Mild increased central lung yordy ngs are present related to atelectasis or early pulmonary edema. There is some opacification of the right base. Consider some mild pleural effusion IMPRESSION: 1. Correlate for atelectasis and/or early pulmonary edema. Minimal right pleural effusion may be pres ent.
[2024-01-27] MEDS ORDERED: LORATADINE 10 MG TAB PO PRN (13:48)
--- NOTE | 2024-01-27 14:29 | P.PN ---
Subjective HISTORY OF PRESENT ILLNESS: The patient is a very pleasant 73-year-old female patient with a past medical history significant for smoking and chronic obstructive pulmonary disease and no cardiovascular history from before including coronary artery disease or diabetes or hypertension or dyslipidemia. She just was discharged from the hospital re cently after she was admitted with a COPD exacerbation. During her hospital stay she underwent an echo and that showed normal LV systolic function. She was brought to the hospital again by her son complaining of shortness of breath and the chest discomfort started within the last 24 hours. She underwent further investigation including an EKG and that showed sinus mechanism with ST changes anteriorly concerning for severe underlying coronary artery disease. Also she underwent a blood work including troponin came in to be abnormal and consistent with acute coronary syndrome. NT proBNP came in to be elevated as well around 21,000. Her hemoglobin and kidney function and electrolytes are within normal limits with a chest x-ray showed finding consistent with COPD and possibly left pleural effusion. The patient was seen and evaluated this morning. She is having ongoing chest discomfort about 8/10 in intensity. Currently she is on heparin. She stated that the chest discomfort has came down slightly after she was started on heparin. No known history of coronary artery disease or co ngestive heart failure or any cardiac arrhythmia and never seen by any mash processing operator before. She was advised to undergo a heart catheterization given the ongoing chest discomfort and abnormal blood work with abnormal troponin which is consistent with acute coronary syndrome in her case but the patient refused and she would like medical treatment only. With that being said I am going to start the patient on dual antiplatelet therapy along with a statin along with beta-kenn. She does not seems in any overt congestive heart failure at this point. Examination revealed distant heart sounds with regular rhythm and diminished breathing sounds bilaterally. No edema was noted. 01/19 Patient states that she does have chest pain with movement but is fine when she is laying down. She was up in a chair for about an hour and felt very anxious and had pain. She feels the pain is about the same as when she came in to the hospital. Discussed results of the testing and recommendations for cardiac catheterization but patient is very adamant that she only wants to try medications at this time. She is on a heparin drip. Echocardiogram has been obtained and report is pending. 01/20 Patient states that she continues to have chest pain in the midsternal area. She states that Marion seems to help her a little bit. But it does not go away. Blood pressure 95/63, heart rate 89, pulse ox 93% on 4 L nasal cannula. Echocardiogram revealed EF of 25 to 30%. Results of the echocardiogram reviewed with the patient. She does state that her symptoms started with a stressful event so this could be related to Takotsubo cardiomyopathy. Patient offered cardiac catheterization again which she declined. 01/21 Patient states she still has a left chest pain but felt that when she got out of bed she was feeling better. The pain is worse with movement from lying to a sitting position. She states she walked a little bit last evening and sat in a chair for about 1 hour. She states she feels very weak. She did receive Marion about 1 hour ago. Blood pressure 89/53, heart rate 73, pulse ox 95% on 4 L nasal cannula. Repeat blood work reveals WBC 21, hemoglobin 12.9. BUN 28 creatinine 0.63. Heparin drip was discontinued yesterday. Patient maintained on dual antiplatelet therapy, statin, and beta-kenn. 01/24 Yesterday, patient underwent cardiac catheterization with Dr. 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 Overall calcified right and left coronary system. Normal left-sided filling pressure. Plan was for medical management. Blood pressure 121/64, heart rate in the 70s. Pulse ox is 97% on 2 L nasal cannula. Repeat blood work reveals hemoglobin 11.2. BUN 33 creatinine 0.55, potassium 3.7. 01/25 Blood pressure 122/72, heart rate is in the 80s, pulse ox 98% on 2 L nasal cannula. Yesterday, IV Lasix was transitioned to oral 40 mg daily. Patient has a negative fluid balance. Repeat blood work reveals WBC 18.8, hemoglobin 12.3. Potassium is 3.5, creatinine 0.5. 01/27/2024 Patient examined this morning at the bedside. Patient reports having mild chest discomfort in the middle of her chest. She denies shortness of breath at the time of examination. Patient's vital signs are stable. PHYSICAL EXAM: VITAL SIGNS: Reviewed. GENERAL: Well-developed in no acute distress. NECK: Supple. No JVD or thyromegaly LUNGS: Respirations even and unlabored. Lungs essentially clear to auscultation bilaterally. HEART: Regular rate and rhythm. S1 and S2 heard. Systolic murmur noted. EXTREMITIES: Normal range of motion. No clubbing or cyanosis. Peripheral pulses intact. 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 Eller Nurse practitioner note has been reviewed by physician. Signing provider agrees with the documented findings, assessment, and plan of care documented by [employer] AIR OPERATOR as a scribe. Objective - Vital Signs Vital signs: Vital Signs Temp 98.2 F 01/27/24 12:00 Pulse 70 01/27/24 13:46 Resp 18 01/27/24 12:00 BP 124/72 01/27/24 12:00 Pulse Ox 97 01/27/24 12:00 FiO2 Intake & Output 01/26/24 01/27/24 01/27/24 18:59 06:59 18:59 Intake Total 240 1140 Output Total 1100 Balance 240 -1100 1140 Intake: Oral 240 1140 Output: Urine 1100 Other: Voiding Method Indwelling Catheter Indwelling Catheter Indwelling Catheter - Labs CBC & Chem 7: 01/27/24 10:28 01/27/24 10:28 Labs: Abnormal Lab Results - Last 24 Hours (Table) 01/26/24 01/26/24 01/27/24 Range/Units 16:55 21:15 10:28 WBC 15.2 H (3.8-10.6) k/uL Neutrophils # 13.0 H (1.3-7.7) k/uL Sodium (137-145) mmol/L BUN (7-17) mg/dL Creatinine (0.52-1.04) mg/dL Glucose (74-99) mg/dL POC Glucose (mg/dL) 199 H 126 H (70-110) mg/dL 01/27/24 01/27/24 Range/Units 10:28 11:37 WBC (3.8-10.6) k/uL Neutrophils # (1.3-7.7) k/uL Sodium 135 L (137-145) mmol/L BUN 20 H (7-17) mg/dL Creatinine 0.44 L (0.52-1.04) mg/dL Glucose 113 H (74-99) mg/dL POC Glucose (mg/dL) 133 H (70-110) mg/dL
--- NOTE | 2024-01-27 16:45 | P.PN ---
Subjective Progress Note Date: 01/27/24 This is a 73-year-old female patient with a history of chronic obstructive pulmonary disease, recently requiring home oxygen following her recent admission, hypertension, toyed arthritis, chronic and ongoing tobacco dependence. She was just discharged on January 13, 2024 following a COPD exacerbation atypical chest. She did continue her Augmentin, bronchodilators and a prednisone taper. She was to follow-up in our office in 1 week. She presented here to the emergency room yesterday 01/19/2024 with complaints again of increasing shortness of breath, chest pain, cough and congestion. Chest x- ray does reveal evidence of COPD and patchy infiltrate traits, right greater than left. Increased from previous. White count 22.9. Hemoglobin 13.8. Platelets 358. Sodium 132. Potassium 4.7. Bicarb 28. BUN 45. Creatinine 0.58. Glucose 169. AST 64. ALT 24. Troponin 4.180. proBNP 21,100. Viral screen was negative. She had been initiated on a heparin drip. An echocardiogram revealed a preserved left ventricular systolic function with ejection fraction of 55% and no significant aortic valve disease. She is seen today in consultation in the emergency department. She is awake and alert in no acute distress. She is dyspneic with conversation. Dyspneic with minimal exertion. Currently maintaining O2 saturations in the 90s on 3 L/min per nasal cannula. She is afebrile. Hemodynamically stable. The patient does appear to have cardiac injury but refused to undergo cardiac catheterization per cardiology consultation. Medical treatment will be recommended. She has also requested a DNR/DNI CODE STATUS. Progress note dated January 20, 2024. The patient is seen today in room 380. Currently, the patient is on O2 at 4 L by nasal cannula. She is receiving IV heparin, and saline at 20 cc an hour. Her procalcitonin level was 0.62. She continues on Zosyn. Her labs include a white count 21.4, hemoglobin 12.3, hematocrit 38.2, and a platelet count of 383,000. The patient's PTT was 48.9. Sodium 133, potassium 4.5, chlorides 106, CO2 25, BUN 26, creatinine 0.46. The glucose is 158. Calcium 8.2. Blood cultures are showing no growth. Chest x-ray shows some bilateral opacities, right greater than left, on top of changes of COPD. Progress note dated January 21, 2024. The patient was again seen in room 380. Currently, she is on 4 L of oxygen by nasal cannula. The patient is getting saline at 10 cc an hour, and IV heparin via protocol. The patient did not have any complaints today. She is laying nearly flat in bed. White count 18, hemoglobin 13, hematocrit 42.5, platelet count 416,000. PTT is 93.6. Sodium 134, potassium 3.9, chlorides 102, CO2 29, BUN 29 and creatinine 0.53. Glucose is 163. Calcium is 9.1. Blood cultures are currently negative. Chest x-ray shows patchy bilateral opacities. Progress note dated January 22, 2024. 73-year-old female seen today in room 380. Currently, the patient is on 4 L of oxygen by nasal cannula. She is getting saline at 10 cc an hour. She denies any complaints today. Currently, white count 21.2, hemoglobin 12.9, hematocrit 41.6, and platelet count 460,000. Sodium 133, potassium 4.5, chloride 99, CO2 29, BUN 28, and creatinine 0.63. Glucose is 258. Calcium is 9.1. Blood cultures are currently negative. Progress note dated January 23, 2024. 73-year-old female seen today in room 380. Currently, the patient is on O2 at 2 L. Her Solu-Medrol will be converted to prednisone 40 mg a day. Will order chest x-ray on the patient. She is on 2 L. She is getting saline at 10 cc an hour. Her daughter is in the room, and we speak to her about her mother. Current labs include a white count 22.5, hemoglobin 12.6, hematocrit 38.6, and a platelet count of 360,000. Sodium 135, potassium 4.2, chlorides 100, CO2 32, BUN 35, creatinine 0.48. Glucose is 113. Calcium is 8.9. Progress note dated January 24, 2024. 73-year-old female seen in room 380. The patient is currently on 3 L of oxygen. She is getting saline at 20 cc an hour. She continues on Zosyn. She was admitted with a diagnosis of non-ST segment elevation myocardial infarction, CHF/fluid overload, possible pneumonia. Initially, the patient refused a cardiac catheterization, but apparently she is change her mind, and will have a cardiac catheterization later this afternoon. Current labs include a white count 23.5, hemoglobin 12.7, hematocrit 40.3, and a platelet count of 344,000. Sodium 135, potassium 4.4, chlorides 99, CO2 33, BUN 38, and creatinine 0.61. Glucose is 82. Calcium is 8.8. Blood cultures are negative. Chest x-ray from yesterday shows cardiomegaly, and some interstitial edema. Progress note dated January 26, 2024. 73-year-old female seen in room 380. The patient's daughter is at the bedside. The patient is currently on nasal O2 at 2 L. The patient is getting saline at 20 cc an hour. The patient continues on Zosyn. Clinically, from the pulmonary standpoint, she is doing much better. We will recheck a procalcitonin level. Current labs include a white count 18.8, hemoglobin 12.3, hematocrit 39, jerrell telet count 290,000. Sodium 136, potassium 3.5, chlorides 10 once, CO2 30, BUN 30, creatinine 0.5. Patient's calcium is 8.4. Glucose is 159. Blood cultures are negative. No recent chest x-ray. On today's evaluation of 01/27/2024, the patient is being seen for a follow-up. The patient has advanced COPD and rheumatoid arthritis. The patient was also suspected to have a right lower lobe pneumonia based on the series of x-ray that was done during this current admission. Overall condition is stable. The patient's white cell count is 15, sodium is at 135 with a potassium level of 4.1, BUN is at 20 with a creatinine of 0.44. The procalcitonin level at the time of admission was 0.62 and remained on elevated. Blood cultures have been negative. Currently she is on 2 L with a pulse ox of 97%. She remains on DuoNeb nebulized treatments [id number]. She is on a prednisone burst tap er starting with 40 mg p.o. daily. IV fluids at 20 cc an hour. The patient is also on a combination of Lasix and Aldactone and metoprolol 25 mg twice a day. She is known to have COPD. She has hypertension and history of smoking. Her echocardiogram showed a preserved LV function with an ejection fraction of 55%. She is a DNR/DNI CODE STATUS. Based on all this, I repeat chest x-ray was done and showed some interstitial edema and minimal atelectatic changes and effusion in the right lung base. Objective - Vital Signs Vital signs: Vital Signs Temp 97.5 F L 01/27/24 08:00 Pulse 70 01/27/24 10:22 Resp 18 01/27/24 08:00 BP 105/56 01/27/24 08:00 Pulse Ox 95 01/27/24 10:08 FiO2 Intake & Output 01/26/24 01/27/24 01/27/24 18:59 06:59 18:59 Intake Total 240 Output Total 1100 Balance 240 -1100 Intake: Oral 240 Output: Urine 1100 Other: Voiding Method Indwelling Catheter Indwelling Catheter Indwelling Catheter - Exam No acute distress, oriented 3. No acute distress. Currently on 2 L by nasal cannula. Calm and comfortable, no signs of any respiratory distress HEENT examination is grossly unremarkable. Mucous membranes are moist. No oral lesions. Neck supple. Full range of motion. No adenopathy thyromegaly or neck vein distention. Cardiovascular examination reveals regular rhythm rate. S1-S2 normal. No S3 or S4. No discernible murmur noted. Heart sounds are distant. Lungs reveal rhonchi and crackles. Breath sounds equal. Abdomen soft bowel sounds are heard. No masses or tenderness. Extremities are intact. No cyanosis clubbing or edema. Skin is without rash or lesion. Neurologic examination is brief but nonfocal. - Labs CBC & Chem 7: 01/27/24 10:28 01/27/24 10:28 Labs: Abnormal Lab Results - Last 24 Hours (Table) 01/26/24 01/26/24 01/27/24 Range/Units 16:55 21:15 10:28 WBC 15.2 H (3.8-10.6) k/uL Neutrophils # 13.0 H (1.3-7.7) k/uL Sodium (137-145) mmol/L BUN (7-17) mg/dL Creatinine (0.52-1.04) mg/dL Glucose (74-99) mg/dL POC Glucose (mg/dL) 199 H 126 H (70-110) mg/dL 01/27/24 01/27/24 Range/Units 10:28 11:37 WBC (3.8-10.6) k/uL Neutrophils # (1.3-7.7) k/uL Sodium 135 L (137-145) mmol/L BUN 20 H (7-17) mg/dL Creatinine 0.44 L (0.52-1.04) mg/dL Glucose 113 H (74-99) mg/dL POC Glucose (mg/dL) 133 H (70-110) mg/dL Assessment and Plan Plan: COPD with chronic hypoxic respiratory failure, currently on 2 L of oxygen by nasal cannula Acute Exacerbation, improving and the patient is obviously short of breath Right basilar atelectatic changes with possibly a small effusion Chest pain in a patient found to have elevated troponins and EKG changes, noncardiac in nature and the echocardiogram shows a preserved LV function. 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 The patient is to be treated medically. Chronic and ongoing tobacco dependence. Rheumatoid arthritis. History of previous pleural effusions attributed to rheumatoid arthritis with previous thoracentesis. Hypertension. Anorexia/cachexia syndrome. Plan: Patient completed the course of Zosyn Repeat chest x-ray shows some atelectatic changes small effusions right lung base Procalcitonin level is not elevated Currently on 2 L of O2 nasal cannula Will continue to follow
[2024-01-27 17:06] LABS: Glucose,Whole Blood 212 mg/dL (70-110)
[2024-01-27 20:12] LABS: Glucose,Whole Blood 201 mg/dL (70-110)
--- NOTE | 2024-01-28 02:25 | P.PN ---
Subjective Progress Note Date: 01/27/24 73-year-old female patient with a history of chronic obstructive pulmonary disease, recently requiring home oxygen following her recent admission, hypertension, toyed arthritis, chronic and ongoing tobacco dependence. She was just discharged on January 13, 2024 following a COPD exacerbation atypical chest. She did continue her Augmentin, bronchodilators and a prednisone taper. She was to follow-up in our office in 1 week. She presented here to the emergency room yesterday 01/19/2024 with complaints again of increasing shortness of breath, chest pain, cough and congestion. Chest x-ray does reveal evidence of COPD and patchy infiltrate traits, right greater than left. Increased from previous. W lia count 22.9. Hemoglobin 13.8. Platelets 358. Sodium 132. Potassium 4.7. Bicarb 28. BUN 45. Creatinine 0.58. Glucose 169. AST 64. ALT 24. Troponin 4.180. proBNP 21,100. Viral screen was negative. She had been initiated on a heparin drip. An echocardiogram revealed a preserved left ventricular systolic function with ejection fraction of 55% and no significant aortic valve disease. She is seen today in consultation in the emergency department. She is awake and alert in no acute distress. She is dyspneic with conversation. Dyspneic with minimal exertion. Currently maintaining O2 saturations in the 90s on 3 L/min per nasal cannula. She is afebrile. Hemodynamically stable. The patient does appear to have cardiac injury but refused to undergo cardiac catheterization per cardiology consultation. Medical treatment will be recommended. She has also requested a DNR/DNI CODE STATUS. 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; calcified right and left coronary system with normal left-sided filling pressure; current management is recommended 01/26/2024 Patient is seen and evaluated in room at bedside; discussed with nursing staff; no specific complaints reported patient presented to hospital with increasing shortness of breath which is likely multifactorial in this patient will to have a cough elevated white count mildly elevated procalcitonin with the opacities in the right upper and left lower lobe concerning for pneumonia with question of possible gram-negative questionable aspiration sputum not collected blood cultures has been negative patient is afebrile, and the patient white count is trending down, patient has completed a course of Zosyn as of today and the patient will be monitored closely off antibiotic therapy 01/27/2024 Patient is seen and evaluated in follow-up with cardiology and pulmonary following. Patient is status post cardiac catheterization recommending maximizing medical management. Patient continues with significant shortness of breath with minimal exertion and extreme weakness and is currently being considered for ECF. Patient has no code and does have extensive comorbidities and patient is appropriate for hospice. Discussion was had with patient regarding this and she reports "I am taking it 1 day at a time". Patient reports plans on going to rehab for strength and mobility. Lengthy discussion was had with family as well and are extremely realistic in regards to patient's overall prognosis. They have had multiple conversations regarding treatment plan. Patient is afebrile with no reports of chest pain or palpitations. Patient tolerating diet with no reported nausea or vomiting. Encouraged oral in take and increased activity as tolerated. Patient has completed antibiotic therapy. Review of systems: Constitutional: No reports of fatigue, fever, or chills Cardiovascular: No reports of chest pain or palpitations Respiratory: reports of continued shortness of breath and continued cough GI: No reports of nausea, vomiting, or diarrhea : No reports of dysuria or retention Neurovascular: reports of generalized weakness All medications have been reviewed Physical exam: Patient is lying in the bed comfortably, no acute distress, awake alert and oriented.. Thin built, elderly appearing, ill-appearing, cachectic HEENT: Normocephalic. Neck is supple. Pupils reactive. Nostrils clear. Oral cavity is moist. Neck reveals no JVD, carotid bruits, or thyromegaly. CHEST EXAMINATION: Trachea is central. Symmetrical expansion. Bilateral prolonged expiration and diminished sounds.. Coarse scattered rhonchi noted. Nonlabored breathing. CARDIAC: S1, S2 are muffled ABDOMEN: Soft. Thin. Bowel sounds normal. No organomegaly. No abdominal bruits. Extremities: reveal no edema. No clubbing or cyanosis Neurologically awake, alert, oriented x3 with well-coordinated movements. No focal deficits noted, diffusely weak Skin: No rash or skin lesions. Psychiatric: Cooperative. Non-suicidal Musculoskeletal: No joint swelling or deformity. Normal range of motion. Assessment: Acute on chronic hypoxic respiratory failure secondary to COPD exacerbation Pneumonia with bilateral patchy infiltrates and sepsis. Present on admission, procalcitonin level is 0.6 Acute Non-ST elevated MN, status post cardiac catheterization recommending maximizing medical management Acute CHF with reduced ejection fraction Ongoing nicotine addiction Rheumatoid arthritis Gait dysfunction and generalized weakness with prolonged hospitalization Hypertension History of pleural effusions and thoracentesis several years ago severe protein calorie malnutrition with a BMI of 21.5 GI and DVT prophylaxis No code Plan: Continue telemetry. Cardiology following and patient is continued on on dual antiplatelets. Cardiology recommends angiogram but patient does not wish to proceed at this time. Recommending maximizing medical management. 2D echocardiogram showed reduced ejection fraction.. Continue with DuoNebs and has been transition to oral prednisone. Patient has completed a course of Zosyn Continue with oxygen supplementation of 2 L via nasal cannula. Patient will be continued on aspirin, Plavix, metoprolol, statins and lisinopril. Follow-up repeat labs and chest x-ray ordered for a.m. PT/OT therapy to evaluate and plan is for patient to go to rehab for continued strength and mobility. CODE STATUS addressed and patient is no code. Prognosis and overall treatment plan discussed with patient and possible hospice and patient is unsure at this time. Due to significant comorbidities, overall prognosis is poor and guarded Possible discharge planning to ECF in the next 24 to 48 hours. Patient is extremely high risk for rehospitalization and readmissions The impression and plan of care has been dictated by Dali Patel, Nurse Practitioner as directed. Dr. Kam MD I have performed a history and examination and MDM of this patient, discussed the same with the dictator, and agree with the dictator's assessment and plan as written ,documented as a scribe. Based on total visit time, I have performed more than 50% of the visit. Objective - Vital Signs Vital signs: Vital Signs Temp 97.5 F L 01/27/24 08:00 Pulse 66 01/27/24 08:00 Resp 18 01/27/24 08:00 BP 105/56 01/27/24 08:00 Pulse Ox 95 01/27/24 08:00 FiO2 Intake & Output 01/26/24 01/27/24 01/27/24 18:59 06:59 18:59 Intake Total 240 Output Total 1100 Balance 240 -1100 Intake: Oral 240 Output: Urine 1100 Other: Voiding Method Indwelling Catheter Indwelling Catheter - Labs CBC & Chem 7: 01/27/24 10:28 01/27/24 10:28 Labs: Abnormal Lab Results - Last 24 Hours (Table) 01/26/24 01/26/24 01/26/24 Range/Units 11:47 16:55 21:15 POC Glucose (mg/dL) 159 H 199 H 126 H (70-110) mg/dL
[2024-01-28 06:18] LABS: Glucose,Whole Blood 98 mg/dL (70-110)
[2024-01-28] MEDS: lisinopriL 5 MG TAB PO SCH (09:16)
[2024-01-28 10:22] LABS: African American GFR (CKD) >90 (>60 ml/min/1.73 sqM); Anion Gap 3 mmol/L; Blood Urea Nitrogen 26 mg/dL (7-17); Calcium 8.7 mg/dL (8.4-10.2); Carbon Dioxide 31 mmol/L (22-30); Chloride 102 mmol/L (98-107); Glucose 100 mg/dL (74-99); Non-African American GFR(CKD) >90 (>60 ml/min/1.73 sqM); Potassium 3.9 mmol/L (3.5-5.1); Sodium 136 mmol/L (137-145)
[2024-01-28 10:26] LABS: NT-Pro-B-Type Natriuretic Pept 3170 pg/mL
[2024-01-28 11:41] LABS: Glucose,Whole Blood 129 mg/dL (70-110)
--- NOTE | 2024-01-28 14:00 | P.PN ---
Subjective HISTORY OF PRESENT ILLNESS: The patient is a very pleasant 73-year-old female patient with a past medical history significant for smoking and chronic obstructive pulmonary disease and no cardiovascular history from before including coronary artery disease or diabetes or hypertension or dyslipidemia. She just was discharged from the hospital re cently after she was admitted with a COPD exacerbation. During her hospital stay she underwent an echo and that showed normal LV systolic function. She was brought to the hospital again by her son complaining of shortness of breath and the chest discomfort started within the last 24 hours. She underwent further investigation including an EKG and that showed sinus mechanism with ST changes anteriorly concerning for severe underlying coronary artery disease. Also she underwent a blood work including troponin came in to be abnormal and consistent with acute coronary syndrome. NT proBNP came in to be elevated as well around 21,000. Her hemoglobin and kidney function and electrolytes are within normal limits with a chest x-ray showed finding consistent with COPD and possibly left pleural effusion. The patient was seen and evaluated this morning. She is having ongoing chest discomfort about 8/10 in intensity. Currently she is on heparin. She stated that the chest discomfort has came down slightly after she was started on heparin. No known history of coronary artery disease or co ngestive heart failure or any cardiac arrhythmia and never seen by any filter screen cleaner before. She was advised to undergo a heart catheterization given the ongoing chest discomfort and abnormal blood work with abnormal troponin which is consistent with acute coronary syndrome in her case but the patient refused and she would like medical treatment only. With that being said I am going to start the patient on dual antiplatelet therapy along with a statin along with beta-kenn. She does not seems in any overt congestive heart failure at this point. Examination revealed distant heart sounds with regular rhythm and diminished breathing sounds bilaterally. No edema was noted. 01/19 Patient states that she does have chest pain with movement but is fine when she is laying down. She was up in a chair for about an hour and felt very anxious and had pain. She feels the pain is about the same as when she came in to the hospital. Discussed results of the testing and recommendations for cardiac catheterization but patient is very adamant that she only wants to try medications at this time. She is on a heparin drip. Echocardiogram has been obtained and report is pending. 01/20 Patient states that she continues to have chest pain in the midsternal area. She states that [place] seems to help her a little bit. But it does not go away. Blood pressure 95/63, heart rate 89, pulse ox 93% on 4 L nasal cannula. Echocardiogram revealed EF of 25 to 30%. Results of the echocardiogram reviewed with the patient. She does state that her symptoms started with a stressful event so this could be related to Takotsubo cardiomyopathy. Patient offered cardiac catheterization again which she declined. 01/21 Patient states she still has a left chest pain but felt that when she got out of bed she was feeling better. The pain is worse with movement from lying to a sitting position. She states she walked a little bit last evening and sat in a chair for about 1 hour. She states she feels very weak. She did receive [place] about 1 hour ago. Blood pressure 89/53, heart rate 73, pulse ox 95% on 4 L nasal cannula. Repeat blood work reveals WBC 21, hemoglobin 12.9. BUN 28 creatinine 0.63. Heparin drip was discontinued yesterday. Patient maintained on dual antiplatelet therapy, statin, and beta-kenn. 01/24 Yesterday, patient underwent cardiac catheterization with Dr. 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 Overall calcified right and left coronary system. Normal left-sided filling pressure. Plan was for medical management. Blood pressure 121/64, heart rate in the 70s. Pulse ox is 97% on 2 L nasal cannula. Repeat blood work reveals hemoglobin 11.2. BUN 33 creatinine 0.55, potassium 3.7. 01/25 Blood pressure 122/72, heart rate is in the 80s, pulse ox 98% on 2 L nasal cannula. Yesterday, IV Lasix was transitioned to oral 40 mg daily. Patient has a negative fluid balance. Repeat blood work reveals WBC 18.8, hemoglobin 12.3. Potassium is 3.5, creatinine 0.5. 01/27/2024 Patient examined this morning at the bedside. Patient reports having mild chest discomfort in the middle of her chest. She denies shortness of breath at the time of examination. Patient's vital signs are stable. 01/28/2024 Patient examined this morning at the bedside. Patient states she is breathing better today compared to yesterday. She does report mild chest discomfort with exertion. She remains on 2 L nasal cannula with oxygen saturations greater than 92%. Vital signs are stable. Blood pressure 101/66. Limited echo has been obtained and results are currently pending. PHYSICAL EXAM: VITAL SIGNS: Reviewed. GENERAL: Well-developed in no acute distress. NECK: Supple. No JVD or thyromegaly LUNGS: Respirations even and unlabored. Lungs essentially clear to auscultation bilaterally. HEART: Regular rate and rhythm. S1 and S2 heard. Systolic murmur noted. EXTREMITIES: Normal range of motion. No clubbing or cyanosis. Peripheral pulses intact. No lower extremity edema ASSESSMENT: Non-STEMI, status post cardiac catheterization revealing chronic total occlusion of the distal left circumflex Nonischemic cardiomyopathy, ejection fraction 25 to 30% COPD exacerbation Acute hypoxic respiratory failure Nicotine dependence PLAN: Continue current cardiac medications Possible discharge home this afternoon pending results of repeat echo Patient to follow-up postdischarge with Dr. Eller Nurse practitioner note has been reviewed by physician. Signing provider agrees with the documented findings, assessment, and plan of care documented by [employer] as a scribe. Objective - Vital Signs Vital signs: Vital Signs Temp 97.9 F 01/28/24 04:00 Pulse 85 01/28/24 11:47 Resp 16 01/28/24 11:47 BP 101/66 01/28/24 11:47 Pulse Ox 97 01/28/24 11:47 FiO2 Intake & Output 01/27/24 01/28/24 01/28/24 18:59 06:59 18:59 Intake Total 1140 236 Output Total 1200 750 Balance -60 -750 236 Weight 49.895 kg Intake: Oral 1140 236 Output: Urine 1200 750 Other: Voiding Method Indwelling Catheter Indwelling Catheter Indwelling Catheter - Labs CBC & Chem 7: 01/27/24 10:28 01/28/24 09:05 Labs: Abnormal Lab Results - Last 24 Hours (Table) 01/27/24 01/27/24 01/28/24 Range/Units 17:03 20:06 09:05 Sodium 136 L (137-145) mmol/L Carbon Dioxide 31 H (22-30) mmol/L BUN 26 H (7-17) mg/dL Creatinine 0.45 L (0.52-1.04) mg/dL Glucose 100 H (74-99) mg/dL POC Glucose (mg/dL) 212 H 201 H (70-110) mg/dL 01/28/24 Range/Units 11:39 Sodium (137-145) mmol/L Carbon Dioxide (22-30) mmol/L BUN (7-17) mg/dL Creatinine (0.52-1.04) mg/dL Glucose (74-99) mg/dL POC Glucose (mg/dL) 129 H (70-110) mg/dL
--- NOTE | 2024-01-28 14:50 | P.DS ---
Providers Date of admission: 01/19/24 03:01 Expected date of discharge: 01/28/24 Attending physician: Andre Gong Consults: 01/19/24 03:01 Consult Physician Routine Consulting Provider: [facility] Consult Reason/Comments: nstemi Do you want consulting provider notified?: Yes Consult Physician Routine Consulting Provider: Carly Triana Consult Reason/Comments: copd, dyspnea Do you want consulting provider notified?: Yes 01/19/24 12:49 Consult Physician Routine Consulting Provider: Vahid Morris Consult Reason/Comments: pneumonia Do you want consulting provider notified?: Yes [facility] Course: Final diagnosis Acute on chronic hypoxic respiratory failure secondary to COPD exacerbation Pneumonia with bilateral patchy infiltrates and sepsis. Present on admission, procalcitonin level is 0.6 Acute Non-ST elevated PR, status post cardiac catheterization recommending maximizing medical management Acute CHF with reduced ejection fraction Ongoing nicotine addiction Rheumatoid arthritis Gait dysfunction and generalized weakness with prolonged hospitalization Hypertension History of pleural effusions and thoracentesis several years ago severe protein calorie malnutrition with a BMI of 21.5 GI and DVT prophylaxis No code Discharge disposition Patient is being discharged in a stable condition with guarded prognosis to [facility]. Patient will follow-up with Dr. Dupont in the outpatient setting upon discharge. Patient is to continue with current medications and close outpatient follow-up with cardiology and pulmonary as scheduled. Total time taken is greater than 35 minutes. Hospital course This is a 73-year-old female who was recently admitted with increased shortness of breath with acute on chronic hypoxic respiratory failure multifactorial most likely secondary to COPD exacerbation. Concerns of possible sepsis present on admission and recent hospitalization with concerns of pneumonia. Patient also with acute CHF exacerbation being monitored by cardiology. Adjustments to medications made recommending outpatient follow-up. Patient did undergo cardiac catheterization this admission recommending maximizing medical management and close outpatient follow-up. Patient with significant weakness and prolonged hospitalization and recent hospitalization previously is extremely weak and physical therapy evaluated the patient recommending rehab. Patient is agreeable and has been accepted at [facility]. Overall prognosis is extremely poor and guarded at this time given significant comorbidities patient is extremely high risk for readmissions. Discussion was had about CODE STATUS and patient wishes to remain no code. Lengthy discussion was had about overall prognosis and discussion of possible hospice although patient is not quite ready yet. Family is understanding and will follow-up with the patient in the outpatient setting. Currently no reports of chest pain, no worsening shortness of breath, or palpitations. Patient is afebrile. No reports of nausea or vomiting and patient is tolerating diet. Patient will be going to [facility] today. Extremely guarded prognosis and high risk for readmissions given patient's significant comorbidities. Physical exam: Gen: This is a 73-year-old female who is awake, alert and oriented x 3, well- developed, thin built, cachectic, elderly appearing, ill-appearing HEENT: Head is atraumatic, normocephalic. Pupils equal, round. Sclerae is anicteric. NECK: Supple. No JVD. No lymphadenopathy. No thyromegaly. LUNGS: Diminished breath sounds bilaterally with scattered rhonchi, faint expiratory wheezing noted on exam. No intercostal retractions. HEART: S1, S2 are muffled ABDOMEN: Soft. Thin, bowel sounds are present. No masses. No tenderness. EXTREMITIES: No pedal edema. No calf tenderness. NEUROLOGICAL: Patient is awake, alert and oriented x3. Cranial nerves 2 through 12 are grossly intact. Diffusely weak Please refer to medication reconciliation sheet for a list of medications. The impression and plan of care has been dictated by Dali Patel, Nurse Practitioner as directed. Dr. Kam MD I have performed a history and examination and MDM of this patient, discussed the same with the dictator, and agree with the dictator's assessment and plan as written ,documented as a scribe. Based on total visit time, I have performed more than 50% of the visit. Patient Condition at Discharge: Poor Plan - Discharge Summary New Discharge Prescriptions: New Aspirin 81 mg PO DAILY tab Ipratropium-Albuterol Nebulize [Duoneb 0.5 mg-3 mg/3 ml Soln] 3 ml INHALATION RT-Q2H PRN each PRN Reason: Shortness Of Breath Or Wheezing predniSONE 10 mg PO DIRECTED #30 tab Budesonide-Formot 160-4.5 Mcg [Symbicort 160-4.5 Mcg Inhaler] 2 puff INHALATION RT-BID each Metoprolol Succinate (ER) [Toprol XL] 25 mg PO BID tab Spironolactone [Aldactone] 25 mg PO DAILY tab Ipratropium-Albuterol Nebulize [Duoneb 0.5 mg-3 mg/3 ml Soln] 3 ml INHALATION RT-QID each Dapagliflozin Propanediol [Farxiga] 10 mg PO DAILY tab Furosemide [Lasix] 40 mg PO DAILY tab Atorvastatin [Lipitor] 40 mg PO DAILY tab Nitroglycerin Sl Tabs [Nitrostat] 0.4 mg SUBLINGUAL Q5M PRN tab PRN Reason: Chest Pain HYDROcodone/APAP 10-325MG [Nedrow 10-325] 1 each PO Q6HR PRN #4 tab PRN Reason: Pain INSULIN ASPART (NovoLOG) [NovoLOG (formulary)] 0 unit SQ ACHS each Clopidogrel [Plavix] 75 mg PO DAILY tab Pantoprazole [Protonix] 40 mg PO AC-BRKFST tab ALPRAZolam [Xanax] 0.25 mg PO BID PRN #4 tab PRN Reason: Anxiety lisinopriL [Zestril] 5 mg PO DAILY tab Continue Albuterol Sulfate [Albuterol Sulfate Hfa] 1 - 2 puff INHALATION RT-Q4H PRN PRN Reason: Shortness Of Breath Benzonatate [Tessalon Perles] 100 mg PO TID PRN PRN Reason: Cough Celecoxib [CeleBREX] 200 mg PO BID PRN PRN Reason: Pain Levocetirizine Dihydrochloride [Xyzal] 5 mg PO HS PRN PRN Reason: Allergy Symptoms Mometasone/Formoterol [Dulera 200 Mcg-5 Mcg Inhaler] 1 puff INHALATION RT-BID Discontinued HYDROcodone/APAP 10-325MG [Nedrow 10-325] 1 tab PO Q8H PRN PRN Reason: Pain lisinopriL [Zestril] 10 mg PO DAILY predniSONE 10 mg PO DIRECTED predniSONE See Taper PO DIRECTED Amoxic-Pot Clav 875-125Mg [Augmentin 875-125] 1 tab PO Q12HR Discharge Medication List Albuterol Sulfate [Albuterol Sulfate Hfa] 1 - 2 puff INHALATION RT-Q4H PRN 01/10/24 [History] Benzonatate [Tessalon Perles] 100 mg PO TID PRN 01/10/24 [History] Celecoxib [CeleBREX] 200 mg PO BID PRN 01/10/24 [History] Levocetirizine Dihydrochloride [Xyzal] 5 mg PO HS PRN 01/10/24 [History] Mometasone/Formoterol [Dulera 200 Mcg-5 Mcg Inhaler] 1 puff INHALATION RT-BID 01/19/24 [History] ALPRAZolam [Xanax] 0.25 mg PO BID PRN #4 tab 01/28/24 [Rx] Aspirin 81 mg PO DAILY tab 01/28/24 [Rx] Atorvastatin [Lipitor] 40 mg PO DAILY tab 01/28/24 [Rx] Budesonide-Formot 160-4.5 Mcg [Symbicort 160-4.5 Mcg Inhaler] 2 puff INHALATION RT-BID each 01/28/24 [Rx] Clopidogrel [Plavix] 75 mg PO DAILY tab 01/28/24 [Rx] Dapagliflozin Propanediol [Farxiga] 10 mg PO DAILY tab 01/28/24 [Rx] Furosemide [Lasix] 40 mg PO DAILY tab 01/28/24 [Rx] HYDROcodone/APAP 10-325MG [Nedrow 10-325] 1 each PO Q6HR PRN #4 tab 01/28/24 [Rx] INSULIN ASPART (NovoLOG) [NovoLOG (formulary)] 0 unit SQ ACHS each 01/28/24 [ Rx] Ipratropium-Albuterol Nebulize [Duoneb 0.5 mg-3 mg/3 ml Soln] 3 ml INHALATION RT-Q2H PRN each 01/28/24 [Rx] Ipratropium-Albuterol Nebulize [Duoneb 0.5 mg-3 mg/3 ml Soln] 3 ml INHALATION RT-QID each 01/28/24 [Rx] Metoprolol Succinate (ER) [Toprol XL] 25 mg PO BID tab 01/28/24 [Rx] Nitroglycerin Sl Tabs [Nitrostat] 0.4 mg SUBLINGUAL Q5M PRN tab 01/28/24 [Rx] Pantoprazole [Protonix] 40 mg PO AC-BRKFST tab 01/28/24 [Rx] Spironolactone [Aldactone] 25 mg PO DAILY tab 01/28/24 [Rx] lisinopriL [Zestril] 5 mg PO DAILY tab 01/28/24 [Rx] predniSONE 10 mg PO DIRECTED #30 tab 01/28/24 [Rx] Follow up Appointment(s)/Referral(s): [facility] [NON-STAFF] - Francis Donohue DO [Doctor of Osteopathic Medicine] - 02/07/24 9:00 am Popeye Dupont MD [Primary Care Provider] - 1-2 days Partha Eller MD [STAFF PHYSICIAN] - 1 Week Activity/Diet/Wound Care/Special Instructions: Patient is going to [facility] Activity as tolerated Patient to follow-up with pulmonary outpatient Patient to follow-up with cardiology outpatient Continue taking medications as prescribed Repeat CBC, CMP, magnesium in 2 to 3 days Continue incentive spirometer use at least 10 times every hour while awake Recommend aspiration precautions Continue heart healthy diet Continue monitoring Accu-Cheks before meals and at bedtime and use sliding scale while on steroids NovoLog sliding scale 0-150 equals 0 units 151-200 equals 2 units 201-250 equals 4 units 251-300 equals 6 units 301-350 equals 8 units 351-400 equals 10 units Please notify provider if blood sugar is 400 or above Discharge Disposition: TRANSFER TO SNF/ECF
--- NOTE | 2024-01-28 15:19 | P.PN ---
Subjective Progress Note Date: 01/28/24 This is a 73-year-old female patient with a history of chronic obstructive pulmonary disease, recently requiring home oxygen following her recent admission, hypertension, toyed arthritis, chronic and ongoing tobacco dependence. She was just discharged on January 13, 2024 following a COPD exacerbation atypical chest. She did continue her Augmentin, bronchodilators and a prednisone taper. She was to follow-up in our office in 1 week. She presented here to the emergency room yesterday 01/19/2024 with complaints again of increasing shortness of breath, chest pain, cough and congestion. Chest x- ray does reveal evidence of COPD and patchy infiltrate traits, right greater than left. Increased from previous. White count 22.9. Hemoglobin 13.8. Platelets 358. Sodium 132. Potassium 4.7. Bicarb 28. BUN 45. Creatinine 0.58. Glucose 169. AST 64. ALT 24. Troponin 4.180. proBNP 21,100. Viral screen was negative. She had been initiated on a heparin drip. An echocardiogram revealed a preserved left ventricular systolic function with ejection fraction of 55% and no significant aortic valve disease. She is seen today in consultation in the emergency department. She is awake and alert in no acute distress. She is dyspneic with conversation. Dyspneic with minimal exertion. Currently maintaining O2 saturations in the 90s on 3 L/min per nasal cannula. She is afebrile. Hemodynamically stable. The patient does appear to have cardiac injury but refused to undergo cardiac catheterization per cardiology consultation. Medical treatment will be recommended. She has also requested a DNR/DNI CODE STATUS. Progress note dated January 20, 2024. The patient is seen today in room 380. Currently, the patient is on O2 at 4 L by nasal cannula. She is receiving IV heparin, and saline at 20 cc an hour. Her procalcitonin level was 0.62. She continues on Zosyn. Her labs include a white count 21.4, hemoglobin 12.3, hematocrit 38.2, and a platelet count of 383,000. The patient's PTT was 48.9. Sodium 133, potassium 4.5, chlorides 106, CO2 25, BUN 26, creatinine 0.46. The glucose is 158. Calcium 8.2. Blood cultures are showing no growth. Chest x-ray shows some bilateral opacities, right greater than left, on top of changes of COPD. Progress note dated January 21, 2024. The patient was again seen in room 380. Currently, she is on 4 L of oxygen by nasal cannula. The patient is getting saline at 10 cc an hour, and IV heparin via protocol. The patient did not have any complaints today. She is laying nearly flat in bed. White count 18, hemoglobin 13, hematocrit 42.5, platelet count 416,000. PTT is 93.6. Sodium 134, potassium 3.9, chlorides 102, CO2 29, BUN 29 and creatinine 0.53. Glucose is 163. Calcium is 9.1. Blood cultures are currently negative. Chest x-ray shows patchy bilateral opacities. Progress note dated January 22, 2024. 73-year-old female seen today in room 380. Currently, the patient is on 4 L of oxygen by nasal cannula. She is getting saline at 10 cc an hour. She denies any complaints today. Currently, white count 21.2, hemoglobin 12.9, hematocrit 41.6, and platelet count 460,000. Sodium 133, potassium 4.5, chloride 99, CO2 29, BUN 28, and creatinine 0.63. Glucose is 258. Calcium is 9.1. Blood cultures are currently negative. Progress note dated January 23, 2024. 73-year-old female seen today in room 380. Currently, the patient is on O2 at 2 L. Her Solu-Medrol will be converted to prednisone 40 mg a day. Will order chest x-ray on the patient. She is on 2 L. She is getting saline at 10 cc an hour. Her daughter is in the room, and we speak to her about her mother. Current labs include a white count 22.5, hemoglobin 12.6, hematocrit 38.6, and a platelet count of 360,000. Sodium 135, potassium 4.2, chlorides 100, CO2 32, BUN 35, creatinine 0.48. Glucose is 113. Calcium is 8.9. Progress note dated January 24, 2024. 73-year-old female seen in room 380. The patient is currently on 3 L of oxygen. She is getting saline at 20 cc an hour. She continues on Zosyn. She was admitted with a diagnosis of non-ST segment elevation myocardial infarction, CHF/fluid overload, possible pneumonia. Initially, the patient refused a cardiac catheterization, but apparently she is change her mind, and will have a cardiac catheterization later this afternoon. Current labs include a white count 23.5, hemoglobin 12.7, hematocrit 40.3, and a platelet count of 344,000. Sodium 135, potassium 4.4, chlorides 99, CO2 33, BUN 38, and creatinine 0.61. Glucose is 82. Calcium is 8.8. Blood cultures are negative. Chest x-ray from yesterday shows cardiomegaly, and some interstitial edema. Progress note dated January 26, 2024. 73-year-old female seen in room 380. The patient's daughter is at the bedside. The patient is currently on nasal O2 at 2 L. The patient is getting saline at 20 cc an hour. The patient continues on Zosyn. Clinically, from the pulmonary standpoint, she is doing much better. We will recheck a procalcitonin level. Current labs include a white count 18.8, hemoglobin 12.3, hematocrit 39, jerrell telet count 290,000. Sodium 136, potassium 3.5, chlorides 10 once, CO2 30, BUN 30, creatinine 0.5. Patient's calcium is 8.4. Glucose is 159. Blood cultures are negative. No recent chest x-ray. On today's evaluation of 01/27/2024, the patient is being seen for a follow-up. The patient has advanced COPD and rheumatoid arthritis. The patient was also suspected to have a right lower lobe pneumonia based on the series of x-ray that was done during this current admission. Overall condition is stable. The patient's white cell count is 15, sodium is at 135 with a potassium level of 4.1, BUN is at 20 with a creatinine of 0.44. The procalcitonin level at the time of admission was 0.62 and remained on elevated. Blood cultures have been negative. Currently she is on 2 L with a pulse ox of 97%. She remains on DuoNeb nebulized treatments [id number]. She is on a prednisone burst tap er starting with 40 mg p.o. daily. IV fluids at 20 cc an hour. The patient is also on a combination of Lasix and Aldactone and metoprolol 25 mg twice a day. She is known to have COPD. She has hypertension and history of smoking. Her echocardiogram showed a preserved LV function with an ejection fraction of 55%. She is a DNR/DNI CODE STATUS. Based on all this, I repeat chest x-ray was done and showed some interstitial edema and minimal atelectatic changes and effusion in the right lung base. On today's evaluation of 01/28/2024, I am seeing the the patient for a follow-up. No interval worsening shortness of breath and the patient is currently on 2 L of oxygen by nasal cannula. She remains on DuoNeb updrafts and a prednisone burst taper. Noted the patient has advanced rheumatoid arthritis and she also has cardiomyopathy with impaired LV function. The most recent echocardiogram t hat was done on this patient on 01/20/2024 showed 11 degree ejection fraction of 25 to 30% consistent with severe cardiomyopathy. Cardiology on the case and the patient is currently on a combination of diuretics and the patient is currently on a combination of Lasix and Aldactone. She did sustain a non-ST elevation myocardial infarction and the cardiac catheterization revealed a total occlusion of the distal circumflex. The plan is to continue medical management and outpatient follow-up with cardiology. BUN is 26 with a creatinine of 0.45 and a sodium levels at 136. The patient remains on Symbicort and DuoNeb updrafts. The patient is currently on a prednisone burst taper starting with 40 mg p.o. daily. No signs of any fluid overload. Had a follow-up chest x-ray from yesterday showed some atelectatic change in lung base along with some minimal interstitial edema and a small right-sided pleural effusion which could be related to underlying CHF. Objective - Vital Signs Vital signs: Vital Signs Temp 97.9 F 01/28/24 04:00 Pulse 85 01/28/24 11:47 Resp 16 01/28/24 11:47 BP 101/66 01/28/24 11:47 Pulse Ox 97 01/28/24 11:47 FiO2 Intake & Output 01/27/24 01/28/24 01/28/24 18:59 06:59 18:59 Intake Total 1140 118 Output Total 1200 750 Balance -60 -750 118 Intake: Oral 1140 118 Output: Urine 1200 750 Other: Voiding Method Indwelling Catheter Indwelling Catheter Indwelling Catheter - Exam No acute distress, oriented 3. No acute distress. Currently on 2 L by nasal cannula. Calm and comfortable, no signs of any respiratory distress HEENT examination is grossly unremarkable. Mucous membranes are moist. No oral lesions. Neck supple. Full range of motion. No adenopathy thyromegaly or neck vein d istention. Cardiovascular examination reveals regular rhythm rate. S1-S2 normal. No S3 or S4. No discernible murmur noted. Heart sounds are distant. Lungs reveal rhonchi and crackles. Breath sounds equal. Abdomen soft bowel sounds are heard. No masses or tenderness. Extremities are intact. No cyanosis clubbing or edema. Skin is without rash or lesion. Neurologic examination is brief but nonfocal. - Labs CBC & Chem 7: 01/27/24 10:28 01/28/24 09:05 Labs: Abnormal Lab Results - Last 24 Hours (Table) 01/27/24 01/27/24 01/28/24 Range/Units 17:03 20:06 09:05 Sodium 136 L (137-145) mmol/L Carbon Dioxide 31 H (22-30) mmol/L BUN 26 H (7-17) mg/dL Creatinine 0.45 L (0.52-1.04) mg/dL Glucose 100 H (74-99) mg/dL POC Glucose (mg/dL) 212 H 201 H (70-110) mg/dL 01/28/24 Range/Units 11:39 Sodium (137-145) mmol/L Carbon Dioxide (22-30) mmol/L BUN (7-17) mg/dL Creatinine (0.52-1.04) mg/dL Glucose (74-99) mg/dL POC Glucose (mg/dL) 129 H (70-110) mg/dL Assessment and Plan Plan: COPD with chronic hypoxic respiratory failure, currently on 2 L of oxygen by nasal cannula Acute COPD/CHF exacerbation, improving and the patient is obviously short of breath Right basilar atelectatic changes with possibly a small effusion Chest pain in a patient found to have elevated troponins and EKG changes, noncardiac in nature and the echocardiogram shows a preserved LV function. Patient is known to have coronary artery disease and please refer to the most recent cardiac catheterization on 01/24/2024. The patient is currently undergoing medical management. Cardiac catheterization was done and the patient was found to have total occlusion of the distal circumflex and the patient is b eing treated medically at this point in time. CHF with impaired ejection fraction of 25 to 30% to be followed up by cardiology on outpatient basis. 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 The patient is to be treated medically. Chronic and ongoing tobacco dependence. Rheumatoid arthritis. History of previous pleural effusions attributed to rheumatoid arthritis with previous thoracentesis. Hypertension. Anorexia/cachexia syndrome. Plan: Patient completed the course of Zosyn Repeat chest x-ray shows some atelectatic changes small effusions right lung ba se Procalcitonin level is not elevated Currently on 2 L of O2 nasal cannula Continue Symbicort and DuoNeb updrafts on outpatient basis and a prednisone burst taper Will continue to follow, possible discharge within next 24 hours.
[2024-01-28 16:53] LABS: Glucose,Whole Blood 175 mg/dL (70-110)
[2024-01-28 20:10] LABS: Glucose,Whole Blood 202 mg/dL (70-110)
--- NOTE | 2024-01-29 04:46 | P.PN ---
Subjective Progress Note Date: 01/28/24 73-year-old female patient with a history of chronic obstructive pulmonary disease, recently requiring home oxygen following her recent admission, hypertension, toyed arthritis, chronic and ongoing tobacco dependence. She was just discharged on January 13, 2024 following a COPD exacerbation atypical chest. She did continue her Augmentin, bronchodilators and a prednisone taper. She was to follow-up in our office in 1 week. She presented here to the emergency room yesterday 01/19/2024 with complaints again of increasing shortness of breath, chest pain, cough and congestion. Chest x-ray does reveal evidence of COPD and patchy infiltrate traits, right greater than left. Increased from previous. W lia count 22.9. Hemoglobin 13.8. Platelets 358. Sodium 132. Potassium 4.7. Bicarb 28. BUN 45. Creatinine 0.58. Glucose 169. AST 64. ALT 24. Troponin 4.180. proBNP 21,100. Viral screen was negative. She had been initiated on a heparin drip. An echocardiogram revealed a preserved left ventricular systolic function with ejection fraction of 55% and no significant aortic valve disease. She is seen today in consultation in the emergency department. She is awake and alert in no acute distress. She is dyspneic with conversation. Dyspneic with minimal exertion. Currently maintaining O2 saturations in the 90s on 3 L/min per nasal cannula. She is afebrile. Hemodynamically stable. The patient does appear to have cardiac injury but refused to undergo cardiac catheterization per cardiology consultation. Medical treatment will be recommended. She has also requested a DNR/DNI CODE STATUS. 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; calcified right and left coronary system with normal left-sided filling pressure; current management is recommended 01/26/2024 Patient is seen and evaluated in room at bedside; discussed with nursing staff; no specific complaints reported patient presented to hospital with increasing shortness of breath which is likely multifactorial in this patient will to have a cough elevated white count mildly elevated procalcitonin with the opacities in the right upper and left lower lobe concerning for pneumonia with question of possible gram-negative questionable aspiration sputum not collected blood cultures has been negative patient is afebrile, and the patient white count is trending down, patient has completed a course of Zosyn as of today and the patient will be monitored closely off antibiotic therapy 01/27/2024 Patient is seen and evaluated in follow-up with cardiology and pulmonary following. Patient is status post cardiac catheterization recommending maximizing medical management. Patient continues with significant shortness of breath with minimal exertion and extreme weakness and is currently being considered for ECF. Patient has no code and does have extensive comorbidities and patient is appropriate for hospice. Discussion was had with patient regarding this and she reports "I am taking it 1 day at a time". Patient reports plans on going to rehab for strength and mobility. Lengthy discussion was had with family as well and are extremely realistic in regards to patient's overall prognosis. They have had multiple conversations regarding treatment plan. Patient is afebrile with no reports of chest pain or palpitations. Patient tolerating diet with no reported nausea or vomiting. Encouraged oral in take and increased activity as tolerated. Patient has completed antibiotic therapy. 01/28/2024 Patient is seen this morning continues to report some shortness of breath although feels better today. Cardiology and pulmonary following cardiology has ordered a 2D echo for evaluation currently awaiting the read for cardiac clearance to ECF. Patient will be going to [facility] for continued PT OT t herapy for strength and mobility. BNP is improved from admission and awaiting other repeat labs. Patient is afebrile currently denies chest pain or palpitations. Patient reports was up and in the chair for some time today. Plan is for ECF possibly in the next 24 hours Review of systems: Constitutional: No reports of fatigue, fever, or chills Cardiovascular: No reports of chest pain or palpitations Respiratory: reports of continued shortness of breath and continued cough, but feels improved today GI: No reports of nausea, vomiting, or diarrhea : No reports of dysuria or retention Neurovascular: reports of generalized weakness All medications have been reviewed Physical exam: Patient is lying in the bed comfortably, no acute distress, awake alert and oriented.. Thin built, elderly appearing, ill-appearing, cachectic HEENT: Normocephalic. Neck is supple. Pupils reactive. Nostrils clear. Oral cavity is moist. Neck reveals no JVD, carotid bruits, or thyromegaly. CHEST EXAMINATION: Trachea is central. Symmetrical expansion. Bilateral prolonged expiration and diminished sounds.. Coarse scattered rhonchi noted. Nonlabored breathing. CARDIAC: S1, S2 are muffled ABDOMEN: Soft. Thin. Bowel sounds normal. No organomegaly. No abdominal bruits. Extremities: reveal no edema. No clubbing or cyanosis Neurologically awake, alert, oriented x3 with well-coordinated movements. No focal deficits noted, diffusely weak Skin: No rash or skin lesions. Psychiatric: Cooperative. Non-suicidal Musculoskeletal: No joint swelling or deformity. Normal range of motion. Assessment: Acute on chronic hypoxic respiratory failure secondary to COPD exacerbation Pneumonia with bilateral patchy infiltrates and sepsis. Present on admission, procalcitonin level is 0.6 Acute Non-ST elevated AK, status post cardiac catheterization recommending maximizing medical management Acute CHF with reduced ejection fraction Ongoing nicotine addiction Rheumatoid arthritis Gait dysfunction and generalized weakness with prolonged hospitalization Hypertension History of pleural effusions and thoracentesis several years ago severe protein calorie malnutrition with a BMI of 21.5 GI and DVT prophylaxis No code Plan: Continue telemetry. Cardiology following and patient is continued on on dual antiplatelets. Cardiology recommends angiogram but patient does not wish to proceed at this time. Recommending maximizing medical management. 2D echocardiogram showed reduced ejection fraction.. Awaiting repeat 2D echo for cardiology clearance Continue with DuoNebs and has been transitioned to oral prednisone. Patient has completed a course of Zosyn Continue with oxygen supplementation of 2 L via nasal cannula. Patient will be continued on aspirin, Plavix, metoprolol, statins and lisinopr il. PT/OT therapy has evaluated and plan is for patient to go to rehab for continued strength and mobility. CODE STATUS addressed and patient is no code. Prognosis and overall treatment plan discussed with patient and possible hospice and patient is unsure at this time. Due to significant comorbidities, overall prognosis is poor and guarded Possible discharge planning to ECF in the next 24 hours. Patient is extremely high risk for rehospitalization and readmissions The impression and plan of care has been dictated by Dali Patel, Nurse Practitioner as directed. Dr. Kam MD I have performed a history and examination and MDM of this patient, discussed the same with the dictator, and agree with the dictator's assessment and plan as written ,documented as a scribe. Based on total visit time, I have performed more than 50% of the visit. Objective - Vital Signs Vital signs: Vital Signs Temp 98.3 F 01/29/24 00:00 Pulse 84 01/29/24 02:00 Resp 16 01/29/24 02:00 BP 122/77 01/29/24 00:00 Pulse Ox 98 01/29/24 00:00 FiO2 Intake & Output 01/28/24 01/28/24 01/29/24 06:59 18:59 06:59 Intake Total 354 0 Output Total 750 1999 300 Balance -750 -4696 -300 Weight 49.895 kg Intake: Oral 354 0 Output: Urine 750 1999 300 Other: Voiding Method Indwelling Catheter Indwelling Catheter Indwelling Catheter - Labs CBC & Chem 7: 01/27/24 10:28 01/28/24 09:05 Labs: Abnormal Lab Results - Last 24 Hours (Table) 01/28/24 01/28/24 01/28/24 Range/Units 09:05 11:39 16:51 Sodium 136 L (137-145) mmol/L Carbon Dioxide 31 H (22-30) mmol/L BUN 26 H (7-17) mg/dL Creatinine 0.45 L (0.52-1.04) mg/dL Glucose 100 H (74-99) mg/dL POC Glucose (mg/dL) 129 H 175 H (70-110) mg/dL 01/28/24 Range/Units 20:03 Sodium (137-145) mmol/L Carbon Dioxide (22-30) mmol/L BUN (7-17) mg/dL Creatinine (0.52-1.04) mg/dL Glucose (74-99) mg/dL POC Glucose (mg/dL) 202 H (70-110) mg/dL
[2024-01-29 06:09] LABS: Glucose,Whole Blood 120 mg/dL (70-110)
--- NOTE | 2024-01-29 06:55 | CA ---
Transthoracic Echo Report Name: Susana Chen Age: 73 Gender: F : 1950 Exam Date: 01/28/2024 10:51 Exam Location: [facility] Ht (in): 60 Wt (lb): 110 Ordering Physician: Victoria No Attending/Referring Phys: [id number], Marybel Head Animal Keeper Carole Dominguez RDCS Procedure CPT: Indications: reassess LV function Cardiac Hx: Technical Quality: Technically difficult study Contrast 1: Definity Total Dose (mL): 2 Contrast 2: Total Dose (mL): MEASUREMENTS (Male / Female) Normal Values 2D ECHO LV Diastolic Diameter PLAX 4.9 cm 4.2 - 5.9 / 3.9 - 5.3 cm LV Systolic Diameter PLAX 3.5 cm IVS Diastolic Thickness 1.1 cm 0.6 - 1.0 / 0.6 - 0.9 cm LVPW Diastolic Thickness 1.1 cm 0.6 - 1.0 / 0.6 - 0.9 cm LV Relative Wall Thickness 0.4 LV Diastolic Volume MOD BP 78.4 cm??? 67 - 155 / 56 - 104 cm??? LV Systolic Volume MOD BP 38.2 cm??? 22 - 58 / 19 - 49 cm??? LV Ejection Fraction MOD BP 51.2 % >= 55 % LV Cardiac Index MOD BP 2367.9 cm???/min???m??? LV Diastolic Volume MOD 4C 81.0 cm??? LV Systolic Volume MOD 4C 39.3 cm??? LV Ejection Fraction MOD 4C 51.6 % LV Cardiac Index MOD 4C 2465.3 cm???/min???m??? LV Diastolic Length 4C 6.8 cm LV Systolic Length 4C 5.7 cm LV Diastolic Volume MOD 2C 74.2 cm??? LV Systolic Volume MOD 2C 36.2 cm??? LV Ejection Fraction MOD 2C 51.2 % LV Cardiac Index MOD 2C 2242.7 cm???/min???m??? LV Diastolic Length 2C 6.6 cm LV Systolic Length 2C 5.9 cm FINDINGS Left Ventricle Left ventricular ejection fraction is estimated at 45-50%. Mildly increased septal wall thickness. Mildly increased posterior wall thickness. Mildly decreased left ventricular ejection fraction. Right Ventricle Normal right ventricular size. Right Atrium Right atrium not well visualized. Left Atrium Left atrium not well visualized. Mitral Valve Structurally normal mitral valve. Aortic Valve Aortic valve not well visualized. Tricuspid Valve Structurally normal tricuspid valve. Pulmonic Valve Pulmonic valve not well visualized. Pericardium No pericardial effusion. Aorta Aortic root and proximal ascending aorta not well visualized. CONCLUSIONS Technically difficult study. Definity was used Mildly impaired LV function was EF between 45-50% Previewed by: Dr. Partha Eller MD (Electronically Signed) Final Date: 29 Jan 2024 06:54
[2024-01-29 09:00] VITALS: BP 101/66; PULSE 83; TEMP 97.2
[2024-01-29 09:51] VITALS: RESP 20
== END 2024-01-29 10:31 | DRG 280 ==
LOC: EC 00:43 → 3SCARD 03:01
PROVIDERS: ADMIT Hospitalist; ATTEND Hospitalist
PROC: B2111ZZ Fluoroscopy of Multiple Coronary Arteries using Low Osmolar Contrast (ICD-10-PCS; 2024-01-24)
PROC: 4A023N7 Measurement of Cardiac Sampling and Pressure, Left Heart, Percutaneous Approach (ICD-10-PCS; principal; 2024-01-24 21:00)
DX: I21.4 Non-ST elevation (NSTEMI) myocardial infarction (principal); E43 Unspecified severe protein-calorie malnutrition; I50.21 Acute systolic (congestive) heart failure; J96.21 Acute and chronic respiratory failure with hypoxia; J44.1 Chronic obstructive pulmonary disease with (acute) exacerbation; I42.8 Other cardiomyopathies; Z68.1 Body mass index [BMI] 19.9 or less, adult; J44.0 Chronic obstructive pulmonary disease with (acute) lower respiratory infection; I25.10 Atherosclerotic heart disease of native coronary artery without angina pectoris; E78.5 Hyperlipidemia, unspecified; M06.9 Rheumatoid arthritis, unspecified; F17.210 Nicotine dependence, cigarettes, uncomplicated; I11.0 Hypertensive heart disease with heart failure; Z79.1 Long term (current) use of non-steroidal anti-inflammatories (NSAID); Z79.51 Long term (current) use of inhaled steroids; Z79.899 Other long term (current) drug therapy; Z66 Do not resuscitate
CPT/HCPCS: 36415; 71045; 80048; 80053; 83735; 83880; 84145; 84484; 85025; 85610; 85730; 87040; 87449; 87636; 93005; 93306; 93308; 93458; 94640; 94760; 96361; 96365; 96366; 96367; 96368; 96375; 96376; 99291